=== PATIENT | male | born 1935 | race Caucasian/White ===

== ENCOUNTER 2018-02-03 19:51 | Inpatient (IN) | payer OTHER ==
[2018-02-03 21:17] LABS: Absolute Lymphocytes (CBC) 0.3 K/uL (0.7-4.9); Absolute Monocytes 0.7 K/uL (0.1-1.3); Absolute Neutrophil 10.4 K/uL (1.8-8.0); Basophils % 0.4 % (0-1.3); Eosinophils % 0.1 % (0-4.4); Hematocrit 25.7 % (39.6-49.0); Lymphocytes % 2.4 % (15.3-44.8); MCH 34.1 pg (27.0-35.0); MCV 102.9 fL (80-100); MPV 8.1 fL (7.6-11.3); Monocytes % 6.2 % (3.3-12.3); RBC Red Blood Cell Count 2.49 M/uL (4.33-5.43)
[2018-02-03 21:21] LABS: Protime INR 1.31
[2018-02-03] MEDS ORDERED: NA CHLORIDE 0.9% 250 ML ONE (21:28)
[2018-02-03] MEDS ORDERED: IBUPROFEN 400 MG TAB ONE (21:28)
[2018-02-03 21:31] LABS: ALT/SGPT 17 U/L (12-78); AST/SGOT 20 U/L (15-37); Albumin 2.9 g/dL (3.4-5.0); Alkaline Phosphatase 75 U/L (45-117); BUN Blood Urea Nitrogen 21 mg/dL (7-18); Bicarbonate 26 mmol/L (21-32); Bilirubin Direct 0.3 mg/dL (0-0.2); Bilirubin Total 0.6 mg/dL (0.2-1.0); Creatine Phosphokinase 42 U/L (39-308); Glucose Level 147 mg/dL (74-106); Lipase 121 U/L (73-393); Potassium 3.8 mmol/L (3.5-5.1); Protein, Total 6.7 g/dL (6.4-8.2); Sodium Level 143 mmol/L (136-145); Troponin (Emerg Dept Use Only) < 0.02 ng/mL (0.0-0.045)
[2018-02-03 22:06] LABS: Blood Morphology Comment NOT SEEN (NOT SEEN); Platelet Estimate ADEQ
--- NOTE | 2018-02-03 22:18 | RAD REPORT ---
EXAM DESCRIPTION: RAD - Chest Single View - 02/03/2018 9:17 pm CLINICAL HISTORY: Fever, urinary retention COMPARISON: None. TECHNIQUE: AP portable chest image was obtained 2102 hours . FINDINGS: No consolidation or mass. Heart size and vasculature within normal limits. Interstitial ma rkings are prominent, more so in the lower right lung field. As a baseline study, an acute interstiti al edema or infiltrate cannot be excluded. Pacemaker is in place. No measurable pleural effusion and no pneumothorax. No gross bony abnormality seen. No acute aortic findings suspected. IMPRESSION: Baseline study showing prominent interstitial markings in the lower right lung field and a mild diffuse prominence elsewhere. Early interstitial edema or infiltrate is not excluded.
[2018-02-03] MEDS ORDERED: NA CHLORIDE 0.9% 1,000 ML ONE (22:41)
[2018-02-03] MEDS ORDERED: CEFEPIME 1 GM/100 ML BAG IV ONE (23:16)
--- NOTE | 2018-02-03 23:17 | ER ---
Nurse's Notes [facility] Name: Ruy Mora Age: 82 yrs Sex: Male : 1935 Arrival Date: 02/03/2018 Time: 19:53 Bed 4 Private MD: Diagnosis: Urinary tract infection, site not specified Presentation: 02/03 20:02 Presenting complaint: Patient states: Fever and urinary retention that started today. aj Discharged from [facility] yesterday. Transition of care: patient was not received from another setting of care. Onset of symptoms was February 03, 2018. Risk Assessment: Do you want to hurt yourself or someone else? Patient reports no desire to harm self or others. Initial Sepsis Screen: Does the patient meet any 2 criteria? No. Patient's initial sepsis screen is negative. Does the patient have a suspected source of infection? No. Patient's initial sepsis screen is negative. Care prior to arrival: None. 20:02 Method Of Arrival: Ambulatory 20:02 Acuity: LUTHER 3 aj Triage Assessment: 20:04 General: Appears in no apparent distress. comfortable, Behavior is calm, cooperative, aj appropriate for age. Pain: Denies pain. Neuro: Level of Consciousness is awake, alert, obeys commands, Oriented to person, place, time, situation, Appropriate for age. Respiratory: Airway is patent Respiratory effort is even, unlabored, Respiratory pattern is regular, symmetrical. : Reports inability to void. Derm: Skin is intact, is healthy with good turgor, Skin is pink, warm \T\ dry. normal. Historical: - Allergies: 20:04 Plavix; aj - Home Meds: 20:36 amiodarone 200 mg Oral tab 1 tab once daily [Active]; Anoro Ellipta 62.5-25 fc mcg/actuation inhalation dsdv 1 puff once daily [Active]; aspirin 81 mg Oral chew 1 tab once daily [Active]; ferrous sulfate 325 mg (65 mg iron) Oral tab twice a day [Active]; furosemide 40 mg Oral tab 1 tab once daily [Active]; gabapentin 300 mg oral cap 2 caps twice a day [Active]; Imdur 30 mg Oral Tb24 1 tab twice a day [Active]; metoprolol tartrate 25 mg Oral tab 1 tab 2 times per day [Active]; pravastatin 80 mg oral tab 1 tab once daily [Active]; Senna with Docusate Sodium 8.6-50 mg oral tab 1 tabs nightly [Active]; tamsulosin 0.4 mg oral cp24 1 cap once daily [Active]; warfarin 5 mg Oral tab 1 tab once daily [Active]; - PMHx: 20:36 Atrial Fib; COPD; GI Bleed; Hypertension; CHF; CAD; High Cholesterol; fc - Immunization history:: Adult Immunizations up to date. - Social history:: Smoking status: Patient/guardian denies using tobacco. - Ebola Screening: : Patient negative for fever greater than or equal to 101.5 degrees Fahrenheit, and additional compatible Ebola Virus Disease symptoms Patient denies exposure to infectious person Patient denies travel to an Ebola-affected area in the 21 days before illness onset No symptoms or risks identified at this time. Screenin:30 Abuse screen: Denies threats or abuse. Nutritional screening: No deficits noted. fc Tuberculosis screening: Fall Risk No fall in past 12 months (0 pts). No secondary diagnosis (0 pts). IV access (20 points). Ambulatory Aid- Crutches/Cane/Walker (15 pts). Gait- Weak (10 pts.). Mental Status- Overestimates/Forgets Limitations (15 pts.). Total Norris Fall Scale indicates Low Risk Score (25-44 pts). Fall prevention measures have been instituted. Side Rails Up X 2 Placed close to Nursing Station Frequent Obs/Assesments occuring Family Present and informed to notify staff if they need to leave bedside As available Patient and Family Educated on Fall Prevention Program and strategies. Assessment: 20:29 General: Appears uncomfortable, well groomed, Behavior is calm, cooperative, fc appropriate for age. Pain: Complains of pain in pelvis Quality of pain is described as burning, Pain began 1 day ago. Is episodic, Aggravated by urinating. Neuro: Level of Consciousness is awake, alert, obeys commands, Oriented to person, place, time, situation. Cardiovascular: No deficits noted. Respiratory: No deficits noted. GI: No deficits noted. : Reports burning with urination, pain with urination, urgency, urinary frequency. EENT: No signs and/or symptoms were reported regarding the EENT system. Derm: Skin is intact, Skin is dry, Skin is flushed, Skin temperature is hot. Musculoskeletal: Circulation, motion, and sensation intact. Capillary refill < 3 seconds, Range of motion: intact in all extremities. 21:25 Reassessment: No changes from previously documented assessment. Patient and/or family fc updated on plan of care and expected duration. Pain level reassessed. Patient is alert, oriented x 3, equal unlabored respirations, skin warm/dry/pink. Pt and made comfortable. 21:53 Reassessment: Pts sats dropped to 80%.so he was placed on O2 at 2 liters per nasal fc cannula. 22:30 Reassessment: No changes from previously documented assessment. Patient and/or family fc updated on plan of care and expected duration. Pain level reassessed. Patient is alert, oriented x 3, equal unlabored respirations, skin warm/dry/pink. 23:14 Reassessment: No changes from previously documented assessment. Patient and/or family fc updated on plan of care and expected duration. Pain level reassessed. Patient is alert, oriented x 3, equal unlabored respirations, skin warm/dry/pink. Tootie FARIA has spoken with pt and his about admission. 23:41 Reassessment: No changes from previously documented assessment. Patient and/or family fc updated on plan of care and expected duration. Pain level reassessed. Patient is alert, oriented x 3, equal unlabored respirations, skin warm/dry/pink. Pt is pending admission. 02/04 00:10 Reassessment: No changes from previously documented assessment. Patient and/or family fc updated on plan of care and expected duration. Pain level reassessed. Patient is alert, oriented x 3, equal unlabored respirations, skin warm/dry/pink. Pt is awaiting Ct Scan that was ordered to be done prior to admission. 00:55 Reassessment: No changes from previously documented assessment. Patient and/or family fc updated on plan of care and expected duration. Pain level reassessed. Patient is alert, oriented x 3, equal unlabored respirations, skin warm/dry/pink. Pt in Ct Scan. 01:55 Reassessment: No changes from previously documented assessment. Patient and/or family fc updated on plan of care and expected duration. Pain level reassessed. Patient is alert, oriented x 3, equal unlabored respirations, skin warm/dry/pink. Pt is pending CT Scan results prior to admission. 02:21 Reassessment: Pt sleeping soundly at this time. Vital Signs: 02/03 20:04 BP 112 / 58; Pulse 82; Resp 17; Temp 98.5; Pulse Ox 91% on R/A; Weight 89.81 kg; Height aj 5 ft. 11 in. (180.34 cm); 20:31 BP 130 / 48; Pulse 86; Resp 20; Temp 100.8(O); Pulse Ox 94% on R/A; Pain 4/10; fc 21:39 BP 106 / 50; Pulse 84; Resp 20; Pulse Ox 91% on R/A; Pain 0/10; fc 21:55 Temp 99.4(O); 22:30 BP 111 / 49; Pulse 72; Resp 22; Temp 99.5; Pulse Ox 94% on 2 lpm NC; Pain 0/10; 23:13 BP 106 / 53; Pulse 67; Resp 20; Temp 99.4; Pulse Ox 94% on 2 lpm NC; Pain 0/10; 02/04 00:11 BP 92 / 50; Pulse 69; Resp 24; Temp 98.7(O); Pulse Ox 96% on R/A; Pain 0/10; 01:00 BP 94 / 43; Pulse 68; Resp 20; Pulse Ox 96% on 2 lpm NC; Pain 0/10; fc 02:00 BP 93 / 53; Pulse 63; Resp 20; Pulse Ox 99% on 2 lpm NC; Pain 0/10; fc 02:44 BP 98 / 49; Pulse 62; Resp 16; Temp 97.8(O); Pulse Ox 100% on 2 lpm NC; Pain 0/10; fc 02/03 20:04 Body Mass Index 27.62 (89.81 kg, 180.34 cm) ED Course: 02/03 19:53 Patient arrived in ED. am2 20:03 Triage completed. aj 20:04 Arm band placed on left wrist. Patient placed in an exam room. aj 20:31 Amos Sommers PA is PHCP. cp 20:31 Amos Marvin MD is Attending Physician. cp 20:31 Patient has correct armband on for positive identification. Bed in low position. Call fc light in reach. Side rails up X2. Pulse ox on. NIBP on. 20:45 Initial lab(s) drawn, by ED staff, sent to lab. First set of blood cultures drawn by ED fc staff. Inserted saline lock: 20 gauge in right antecubital area, using aseptic technique. ,using aseptic technique. per Tereza Tech Blood collected. 21:00 Flu and/or RSV swab sent to lab. fc 21:05 Bladder scan completed. 93 ml. fc 21:08 X-ray(s) taken. fc 21:12 X-ray completed. Portable x-ray completed in exam room. Patient tolerated procedure kw well. 21:13 Chest Single View XRAY In Process Unspecified. EDMS 21:25 Second set of blood cultures drawn by me. fc 21:55 Oxygen administration via nasal cannula \T\ 2L/min. fc 22:58 Urine Culture Sent. 23:15 Colleen Cohn MD is Hospitalizing Provider. 02/04 00:10 No provider procedures requiring assistance completed. fc 01:48 Inserted saline lock: 20 gauge in left antecubital area, using aseptic technique. cc 01:51 IV discontinued, intact, bleeding controlled, No redness/swelling at site. Pressure cc dressing applied, IV RT AC. 02:46 Patient admitted, IV remains in place. Administered Medications: 02/03 21:20 Drug: Motrin 800 mg Route: PO; 21:56 Follow up: Response: No adverse reaction; Temperature is decreased 21:20 Drug: NS 0.9% 250 ml Route: IV; Rate: bolus; Site: right antecubital; 21:51 Follow up: Response: No adverse reaction; No change in condition; IV Status: Completed infusion; IV Intake: 250ml 22:40 Drug: NS 0.9% 1000 ml Route: IV; Rate: 75 ml/hr; Site: right antecubital; 02/04 02:47 Follow up: Response: No adverse reaction; No change in condition; IV Status: Infusion continued upon admission; IV Intake: 300ml 02/03 23:01 CANCELLED (Physician Discretion): Zosyn 3.375 grams IVPB once over 60 mins; (mix in NS cp 100 mL) 23:02 CANCELLED (Physician Discretion): vancoMYCIN 1 grams IVPB once over 2 hrs cp 23:15 Drug: Cefepime 1 grams Route: IVPB; Rate: 200 ml/hr; Infused Over: 30 mins; Site: right fc antecubital; 02/04 00:10 Follow up: Response: No adverse reaction; No change in condition; IV Status: Completed fc infusion; IV Intake: 50ml 02/03 23:16 Drug: Albuterol 2.5 mg Route: Inhalation; fc 23:40 Follow up: Response: No adverse reaction; No change in condition fc 23:16 Drug: AtroVENT Aerosol 0.5 mg Route: Inhalation; fc 23:40 Follow up: Response: No adverse reaction; No change in condition fc Intake: 21:51 IV: 250ml; Total: 250ml. fc 02/04 00:10 IV: 50ml; Total: 300ml. fc 02:47 IV: 300ml; Total: 600ml. fc 02:48 PO: 100ml; Total: 700ml. fc Output: 02:48 Urine: 175ml (Voided); Total: 175ml. fc Outcome: 02/03 23:16 Decision to Hospitalize by Provider. 02/04 02:45 Admitted to Tele accompanied by tech, via wheelchair, room 407, with chart, Report fc called to Melanie FORBES Condition: good Discharge instructions given to patient, family, Instructed on the need for admit, Demonstrated understanding of instructions. 03:12 Patient left the ED. Signatures: Dispatcher [employer] Brie Chacon RN RN aj Chretien, Felicia, RN RN fc Whitley, Kimberlee kw Christian, Chelsea cc Page, Corey, PA PA cp Moreno, Amanda am2
--- NOTE | 2018-02-03 23:17 | EDPHYS ---
Physician Documentation [facility] Name: Ruy Mora Age: 82 yrs Sex: Male : 1935 Arrival Date: 02/03/2018 Time: 19:53 Bed 4 Private MD: ED Physician Amos Marvin HPI: 02/03 20:45 This 82 yrs old Male presents to ER via Ambulatory with complaints of Urinary cp Retention. 20:45 The patient presents with urinary symptoms, dribbling of urine, retention. cp 20:45 Onset: The symptoms/episode began/occurred this morning. Associated signs and symptoms: cp Pertinent positives: cough, Pertinent negatives: constipation, diarrhea, vomiting. The patient reports fever, not measured (subjective). [facility] being hospitalized for GI bleed. Patient reports having endoscopy and blood transfusions while in hospital. Patient reports fever and difficulty urinating today. Historical: - Allergies: 20:04 Plavix; aj - Home Meds: 20:36 amiodarone 200 mg Oral tab 1 tab once daily [Active]; Anoro Ellipta 62.5-25 fc mcg/actuation inhalation dsdv 1 puff once daily [Active]; aspirin 81 mg Oral chew 1 tab once daily [Active]; ferrous sulfate 325 mg (65 mg iron) Oral tab twice a day [Active]; furosemide 40 mg Oral tab 1 tab once daily [Active]; gabapentin 300 mg oral cap 2 caps twice a day [Active]; Imdur 30 mg Oral Tb24 1 tab twice a day [Active]; metoprolol tartrate 25 mg Oral tab 1 tab 2 times per day [Active]; pravastatin 80 mg oral tab 1 tab once daily [Active]; Senna with Docusate Sodium 8.6-50 mg oral tab 1 tabs nightly [Active]; tamsulosin 0.4 mg oral cp24 1 cap once daily [Active]; warfarin 5 mg Oral tab 1 tab once daily [Active]; - PMHx: 20:36 Atrial Fib; COPD; GI Bleed; Hypertension; CHF; CAD; High Cholesterol; fc - Immunization history:: Adult Immunizations up to date. - Social history:: Smoking status: Patient/guardian denies using tobacco. - Ebola Screening: : Patient negative for fever greater than or equal to 101.5 degrees Fahrenheit, and additional compatible Ebola Virus Disease symptoms Patient denies exposure to infectious person Patient denies travel to an Ebola-affected area in the 21 days before illness onset No symptoms or risks identified at this time. ROS: 20:52 Constitutional: Positive for fever, Negative for body aches, poor PO intake. cp 20:52 Eyes: Negative for injury, pain, redness, and discharge. cp 20:52 ENT: Negative for drainage from ear(s), ear pain, sore throat, difficulty swallowing, difficulty handling secretions. 20:52 Cardiovascular: Negative for chest pain, edema, palpitations. 20:52 Respiratory: Positive for cough, Negative for wheezing. 20:52 Abdomen/GI: Negative for vomiting, diarrhea, constipation, anorexia, black/tarry stool, rectal bleeding. 20:52 Back: Negative for pain at rest, pain with movement, radiated pain. 20:52 : Positive for difficulty urinating. 20:52 Skin: Negative for cellulitis, rash. 20:52 Neuro: Negative for altered mental status, headache, weakness. 20:52 All other systems are negative. Exam: 20:58 Constitutional: The patient appears in no acute distress, alert, awake, cp non-diaphoretic, non-toxic, well developed, well nourished, febrile. 20:58 Head/Face: Normocephalic, atraumatic. cp 20:58 Eyes: Periorbital structures: appear normal, Pupils: equal, round, and reactive to light and accomodation, Extraocular movements: intact throughout, Conjunctiva: normal, no exudate, no injection, Sclera: no appreciated abnormality, Lids and lashes: appear normal, bilaterally. 20:58 ENT: External ear(s): are unremarkable, Ear canal(s): are normal, clear, TM's: bulging, is not appreciated, bilaterally, dullness, bilaterally, erythema, is not appreciated, bilaterally, Nose: is normal, Mouth: Lips: moist, Oral mucosa: pink and intact, moist, Posterior pharynx: is normal, airway is patent, no erythema, no exudate. 20:58 Neck: ROM/movement: is normal, is supple, without pain, no range of motions limitations, no meningismus, no nuchal rigidity. 20:58 Chest/axilla: Inspection: normal, Palpation: is normal, no crepitus, no tenderness. 20:58 Cardiovascular: Rate: normal, Rhythm: regular, Pulses: Pulses are 2+ in right radial artery and left radial artery. Edema: is not appreciated, JVD: is not appreciated. 20:58 Respiratory: the patient does not display signs of respiratory distress, Respirations: normal, no use of accessory muscles, no retractions, no splinting, no tachypnea, labored breathing, is not present, Breath sounds: decreased breath sounds, that are mild, throughout, rhonchi, that are mild, are located in both bases, wheezing: is not appreciated. 20:58 Abdomen/GI: Inspection: abdomen appears normal, Bowel sounds: active, all quadrants, Palpation: abdomen is soft and non-tender, in all quadrants, rebound tenderness, is not appreciated, voluntary guarding, is not appreciated, involuntary guarding, is not appreciated. 20:58 Back: pain, is absent, ROM is normal. 20:58 Skin: cellulitis, is not appreciated, no rash present. 20:58 Neuro: Orientation: to person, place \T\ time. Mentation: lucid, able to follow commands, Cerebellar function: is grossly normal, Motor: moves all fours, strength is normal, Sensation: no obvious gross deficits. 21:25 ECG was reviewed by the Attending Physician. cp Vital Signs: 20:04 BP 112 / 58; Pulse 82; Resp 17; Temp 98.5; Pulse Ox 91% on R/A; Weight 89.81 kg; Height aj 5 ft. 11 in. (180.34 cm); 20:31 BP 130 / 48; Pulse 86; Resp 20; Temp 100.8(O); Pulse Ox 94% on R/A; Pain 4/10; fc 21:39 BP 106 / 50; Pulse 84; Resp 20; Pulse Ox 91% on R/A; Pain 0/10; fc 21:55 Temp 99.4(O); fc 22:30 BP 111 / 49; Pulse 72; Resp 22; Temp 99.5; Pulse Ox 94% on 2 lpm NC; Pain 0/10; fc 23:13 BP 106 / 53; Pulse 67; Resp 20; Temp 99.4; Pulse Ox 94% on 2 lpm NC; Pain 0/10; fc 02/04 00:11 BP 92 / 50; Pulse 69; Resp 24; Temp 98.7(O); Pulse Ox 96% on R/A; Pain 0/10; fc 01:00 BP 94 / 43; Pulse 68; Resp 20; Pulse Ox 96% on 2 lpm NC; Pain 0/10; fc 02:00 BP 93 / 53; Pulse 63; Resp 20; Pulse Ox 99% on 2 lpm NC; Pain 0/10; fc 02:44 BP 98 / 49; Pulse 62; Resp 16; Temp 97.8(O); Pulse Ox 100% on 2 lpm NC; Pain 0/10; fc 02/03 20:04 Body Mass Index 27.62 (89.81 kg, 180.34 cm) aj MDM: 02/03 20:31 Patient medically screened. cp 21:00 Differential diagnosis: prostatitis, sepsis, pneumonia bronchitis, pneumonia UTI. cp 22:30 Data reviewed: vital signs, nurses notes, lab test result(s), EKG, radiologic studies, cp plain films. 22:30 Test interpretation: by ED physician or midlevel provider: ECG, plain radiologic cp studies. Counseling: I had a detailed discussion with the patient and/or guardian regarding: the historical points, exam findings, and any diagnostic results supporting the discharge/admit diagnosis, lab results, radiology results, the need for further work-up and treatment in the hospital. 22:36 Physician consultation: Colleen Cohn MD was called at 22:37, left message on voicemail. 02/03 20:41 Order name: Urine Culture 02/03 20:41 Order name: Basic Metabolic Panel; Complete Time: 21:34 02/03 22:28 Interpretation: Normal except: CL 109; GLUC 147; BUN 21; CRE 1.60; GFR 41; CA 7.2. 02/03 20:41 Order name: Blood Culture Adult (2) 02/03 20:41 Order name: CBC with Diff; Complete Time: 22:27 02/03 21:35 Interpretation: Normal except: WBC 11.5; RBC 2.49; HGB 8.5; HCT 25.7; MCV 102.9; PLT cp 148; RDW 19.8; SUNDAY% 90.9; LYM% 2.4; NEUT A 10.4; LYMA 0.3. 02/03 20:41 Order name: CPK; Complete Time: 21:34 02/03 20:41 Order name: Lactate; Complete Time: 22: 02/03 20:41 Order name: LFT's; Complete Time: : 02/03 22:28 Interpretation: Normal except: BILID 0.3; ALB 2.9; GLOB 3.8; A/G 0.8. 02/03 20:41 Order name: Lipase; Complete Time: 21: 02/03 20:41 Order name: Procalcitonin; Complete Time: 22: 02/03 20:41 Order name: Protime (+inr); Complete Time: : 02/03 20:41 Order name: Ptt, Activated; Complete Time: : 02/03 20:41 Order name: Troponin (emerg Dept Use Only); Complete Time: : 02/03 20:41 Order name: Urine Microscopic Only 02/03 20:41 Order name: Influenza Screen (a \T\ B); Complete Time: : 02/03 20:41 Order name: Chest Single View XRAY; Complete Time: 22: 02/03 20:41 Order name: Accucheck; Complete Time: 21: 02/03 20:41 Order name: Cardiac monitoring; Complete Time: : 02/03 20:41 Order name: EKG - Nurse/Tech; Complete Time: : 02/03 20:41 Order name: Urine Culture [facility] 02/03 21:22 Order name: Manual Differential; Complete Time: 22: [facility] 02/03 22:27 Interpretation: Normal except: SEGS 89; BANDS [F] 6; LYM 4. 02/03 22:54 Order name: Urine Dipstick--Ancillary (enter results) ms 02/03 23:01 Order name: CT Chest Wo Con 02/03 20:41 Order name: IV Saline Lock - Large Bore; Complete Time: : 02/03 20:41 Order name: Labs collected and sent; Complete Time: : 02/03 20:41 Order name: O2 Per Protocol; Complete Time: 21: 02/03 20:41 Order name: O2 Sat Monitoring; Complete Time: 21: 02/03 20:41 Order name: Urine Dipstick-Ancillary (obtain specimen); Complete Time: 22:58 cp EC:25 Rate is 75 beats/min. Rhythm is regular. NC interval is normal. QRS interval is cp prolonged at 106 msec. QT interval is prolonged at 412 msec. Interpreted by me. Reviewed by me. Administered Medications: 21:20 Drug: Motrin 800 mg Route: PO; 21:56 Follow up: Response: No adverse reaction; Temperature is decreased 21:20 Drug: NS 0.9% 250 ml Route: IV; Rate: bolus; Site: right antecubital; 21:51 Follow up: Response: No adverse reaction; No change in condition; IV Status: Completed fc infusion; IV Intake: 250ml 22:40 Drug: NS 0.9% 1000 ml Route: IV; Rate: 75 ml/hr; Site: right antecubital; 02/04 02:47 Follow up: Response: No adverse reaction; No change in condition; IV Status: Infusion fc continued upon admission; IV Intake: 300ml 02/03 23:01 CANCELLED (Physician Discretion): Zosyn 3.375 grams IVPB once over 60 mins; (mix in NS cp 100 mL) 23:02 CANCELLED (Physician Discretion): vancoMYCIN 1 grams IVPB once over 2 hrs cp 23:15 Drug: Cefepime 1 grams Route: IVPB; Rate: 200 ml/hr; Infused Over: 30 mins; Site: right fc antecubital; 02/04 00:10 Follow up: Response: No adverse reaction; No change in condition; IV Status: Completed fc infusion; IV Intake: 50ml 02/03 23:16 Drug: Albuterol 2.5 mg Route: Inhalation; 23:40 Follow up: Response: No adverse reaction; No change in condition 23:16 Drug: AtroVENT Aerosol 0.5 mg Route: Inhalation; 23:40 Follow up: Response: No adverse reaction; No change in condition Disposition: 02/04 07:20 Co-signature as Attending Physician, Amos Marvin MD I agree with the assessment and shannan plan of care. Disposition: 02/03/18 23:16 Hospitalization ordered by Colleen Cohn for Observation. Preliminary diagnosis is Urinary tract infection, site not specified. - Bed requested for Telemetry/MedSurg (observation). - Status is Observation. fc - Condition is Stable. - Problem is new. - Symptoms have improved. UTI on Admission? Yes Signatures: Dispatcher [employer] EDMS Dasha Elizabeth RN RN Brie Biswas RN Amos Jay MD MD cha Chretien, Felicia, RN RN Amos Sommers, BIENVENIDO FARIA cp Corrections: (The following items were deleted from the chart) 02/03 22:28 21:34 Normal except: CL 109; GLUC 147; BUN 21; CRE 1.60; GFR 41. cp cp 22:50 22:31 Jeffries ordered. cp fc 23:01 22:45 Zosyn 3.375 grams IVPB once over 60 mins; (mix in NS 100 mL) ordered. cp cp 23:02 22:45 vancoMYCIN 1 grams IVPB once over 2 hrs ordered. cp cp 23:45 23:16 Hospitalization Ordered by Colleen Cohn MD for Observation. Preliminary diagnosis is Urinary tract infection, site not specified. Bed requested for Telemetry/MedSurg (observation). Status is Observation. Condition is Stable. Problem is new. Symptoms have improved. UTI on Admission? Yes. cp 02/04 03:12 02/03 23:45 02/03/2018 23:16 Hospitalization Ordered by Colleen Cohn MD for Observation. Preliminary diagnosis is Urinary tract infection, site not specified. Bed requested for Telemetry/MedSurg (observation). Status is Observation. Condition is Stable. Problem is new. Symptoms have improved. UTI on Admission? Yes. mw
[2018-02-03] MEDS ORDERED: IPRATROPIUM BROM 0.5MG/2.5ML ONE (23:19)
[2018-02-03] MEDS ORDERED: ALBUTEROL 2.5 MG/3 ML NEB SOL ONE (23:19)
[2018-02-03 23:40] LABS: Urine Bacteria LOADED /HPF (NONE SEEN); Urine Culture Reflex Order NOT NEEDED; Urine RBC <5 /HPF (NONE SEEN)
[2018-02-04] MEDS ORDERED: ONDANSETRON 4 MG/2 ML VIAL IV PRN (00:51)
[2018-02-04] MEDS ORDERED: MORPHINE 2 MG/ML SYR IV PRN (00:51)
[2018-02-04] MEDS ORDERED: PANTOPRAZOLE 40 MG INJ IVP ONE (00:54)
[2018-02-04] MEDS ORDERED: SODIUM CHLORIDE 0.9% 10ML INJ IV PRN (00:54)
[2018-02-04] MEDS: NA CHLORIDE 0.9% 1,000 ML IV SCH ×3 (01:00→20:48)
[2018-02-04 01:10] LABS: Urine Blood 1+ (NEG); Urine Glucose NEGATIVE (NEG); Urine Protein 2+ (NEG)
[2018-02-04 04:31] VITALS: BMI 28.9
[2018-02-04] MEDS ORDERED: MORPHINE 4 MG/ML SYR IV PRN (07:25)
[2018-02-04] MEDS ORDERED: INFLUENZA VACCINE (for 3y+) 0.5 ML DOSE IMVAC ONE (08:00)
[2018-02-04] MEDS: PANTOPRAZOLE 40 MG INJ IVP SCH ×2 (08:43→20:49)
[2018-02-04] MEDS: ASPIRIN EC 81 MG TAB PO SCH (08:44)
[2018-02-04] MEDS: ISOSORBIDE MONO SR 30 MG TAB PO SCH ×3 (08:44→17:46)
[2018-02-04] MEDS: TAMSULOSIN 0.4 MG SR CAP PO SCH (08:44)
[2018-02-04] MEDS: GABAPENTIN 300 MG CAP PO SCH ×2 (08:44→20:48)
[2018-02-04] MEDS: FERROUS SULFATE 325 MG TAB PO SCH ×2 (08:44→17:46)
[2018-02-04] MEDS: AMIODARONE HCL 200 MG TAB PO SCH (08:44)
[2018-02-04] MEDS: FUROSEMIDE 40 MG TABLET PO SCH (08:44)
[2018-02-04] MEDS: HOME MED 1 EA UNK (Umeclidinium Brm/Vilanterol Tr [Anoro Ellipta 62.5-25 Mcg Inh] 1 PUFF) IN SCH (08:45)
[2018-02-04] MEDS: METOPROLOL TAR 25 MG TAB PO SCH ×2 (08:45→21:00)
[2018-02-04 09:00] LABS: Protime INR 1.23
[2018-02-04] MEDS ORDERED: HOME MED 1 EA UNK (Pravastatin Sodium [Pravachol] 80 MG) PO SCH (09:00)
[2018-02-04 09:09] LABS: Absolute Lymphocytes (CBC) 0.2 K/uL (0.7-4.9); Absolute Monocytes 0.7 K/uL (0.1-1.3); Absolute Neutrophil 13.3 K/uL (1.8-8.0); Basophils % 0.2 % (0-1.3); Eosinophils % 0.1 % (0-4.4); Hematocrit 28.8 % (39.6-49.0); Lymphocytes % 1.7 % (15.3-44.8); MCH 33.9 pg (27.0-35.0); MCV 102.6 fL (80-100); MPV 7.9 fL (7.6-11.3); Monocytes % 4.9 % (3.3-12.3); RBC Red Blood Cell Count 2.81 M/uL (4.33-5.43)
[2018-02-04 09:14] LABS: Ferritin 480.7 ng/mL (26-388)
[2018-02-04 09:29] LABS: Anisocytosis 1+; Blood Morphology Comment NOTED (NOT SEEN); Macrocytosis 1+; Platelet Estimate ADEQ; Polychromasia SLIGHT; Urine White Blood Cell Casts OK
[2018-02-04 09:36] LABS: Bilirubin Total 1.1 mg/dL (0.2-1.0); Folic Acid, (Folate) 18.3 ng/mL (3.1-17.5); Magnesium 2.1 mg/dL (1.8-2.4); Phosphorus 1.5 mg/dL (2.5-4.9); Potassium 3.8 mmol/L (3.5-5.1); Protein, Total 7.2 g/dL (6.4-8.2)
--- NOTE | 2018-02-04 11:17 | P.HP ---
Certification for Inpatient Patient admitted to: Observation With expected LOS: <2 Midnights Patient will require the following post-hospital care: None Practitioner: I am a practitioner with admitting privileges, knowledge of patient current condition, hospital course, and medical plan of care. Services: Services provided to patient in accordance with Admission requirements found in Title 42 Section 412.3 of the Code of Federal Regulations Patient History Date of Service: 02/04/18 Reason for admission: Fever; urinary retention; UTI; pneumonia History of Present Illness: Patient is an 82-year-old gentleman who came into the hospital with fever, shakes, and chills. Patient was recently discharged from [facility]. At that time he was admitted for upper GI bleeding. They did an endoscopy which risk acquired a special endoscopy to reach further into the small intestine then the duodenum. Patient had been area bleeding that was clipped. Afterwards patient did well except that patient has some urinary retention which was straight cathed and after urinating 600 cc she was sent home. She was advised to go back to the emergency room if she had fevers which she developed on Monday. Patient history of atrial fibrillation. Patient was on anti coagulation which cause of bleeding. Patient had a Watchman procedure which was done in March. Patient will be admitted to the hospital for further treatment. Allergies clopidogrel bisulfate [From Plavix] Allergy (Verified 02/04/18 00:12) Hives Home Medications: Aspirin [Aspirin EC] 81 mg PO DAILY 02/13/15 Ferrous Sulfate [Iron] 325 mg PO BID 02/13/15 Pravastatin Sodium [Pravachol] 80 mg PO DAILY 02/13/15 Amiodarone HCl [Pacerone] 200 mg PO DAILY 02/04/18 Furosemide 40 mg PO DAILY 02/04/18 Gabapentin 600 mg PO BID 02/04/18 Isosorbide Mononitrate [Isosorbide Mononitrate ER] 30 mg PO BID 02/04/18 Metoprolol Tartrate 25 mg PO BID 02/04/18 Sennosides/Docusate Sodium [Senna-Docusate Sodium Tablet] 1 tab PO BEDTIME 02/04 Tamsulosin HCl 0.4 mg PO DAILY 02/04/18 Umeclidinium Brm/Vilanterol Tr [Anoro Ellipta 62.5-25 Mcg INH] 1 puff IN DAILY 02/04/18 Warfarin Sodium 5 mg PO DAILY 02/04/18 - Past Medical/Surgical History Has patient received pneumonia vaccine in the past: Yes Diabetic: No -: DVT -: Atrial fib -: COPD -: GI Bleed -: Hypertension -: CHF -: CAD -: High Cholestol -: 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 -: [place] filter - Family History Father Family History: Reviewed- Non-Contributory - Social History Smoking Status: Former smoker Alcohol use: Yes CD- Drugs: No Caffeine use: Yes Place of Residence: Home Review of Systems 10-point ROS is otherwise unremarkable Physical Examination - Vital Signs Temperature: 97.2 F Blood Pressure: 123/54 Pulse: 72 Respirations: 24 Pulse Ox (%): 97 - Physical Exam General: Alert, In no apparent distress, Oriented x3 HEENT: Atraumatic, PERRLA, Mucous membr. moist/pink, EOMI, Sclerae nonicteric Neck: Supple, 2+ carotid pulse no bruit, No LAD, Without JVD or thyroid abnormality Respiratory: Diminished, Rhonchi/gurgles Cardiovascular: Regular rate/rhythm, Normal S1 S2, Systolic murmur Gastrointestinal: Normal bowel sounds, Soft and benign, Non-distended, Tenderness (In suprapubic area) Musculoskeletal: No clubbing, No swelling, No tenderness Integumentary: No rashes Neurological: Normal gait, Normal speech, Normal strength at 5/5 x4 extr, Normal tone, Normal affect Lymphatics: No axilla or inguinal lymphadenopathy - Studies Laboratory Data (last 24 hrs) 02/03/18 20:45: PT 15.5 H, INR 1.31, APTT 34.9 02/03/18 20:45: WBC 11.5 H, Hgb 8.5 L, Hct 25.7 L, Plt Count 148 L 02/03/18 20:45: Sodium 143, Potassium 3.8, BUN 21 H, Creatinine 1.60 H, Glucose 147 H, Total Bilirubin 0.6, AST 20, ALT 17, Alkaline Phosphatase 75, Lipase 121 Microbiology Data (last 24 hrs): 02/03/18 21:00 Nasopharnyx Influenza Type A Antigen Screen - Final 02/03/18 21:00 Nasopharnyx Influenza Type B Antigen Screen - Final Assessment & Plan - Problems (Diagnosis) (1) UTI (urinary tract infection) Current Visit: Yes Status: Acute (2) Pneumonia Current Visit: Yes Status: Acute (3) Anemia due to acute blood loss Current Visit: Yes Status: Acute (4) DVT (deep venous thrombosis) Current Visit: Yes Status: Acute (5) Atrial fibrillation with rapid ventricular response Current Visit: Yes Status: Acute (6) COPD (chronic obstructive pulmonary disease) Current Visit: Yes Status: Acute - Plan Plan: 1. Continue with IV hydration and PPI twice daily 2. Continue with IV antibiotics for treatment of UTI and pneumonia 3. Continue with pain control 4. Clear liquid diet 5. GI consultation as needed 6. Serial H&H, and we will monitor LFTs and lipase along with electrolytes. 7. GI and DVT prophylaxis Discharge Plan: Home Plan to discharge in: 24 Hours - Advance Directives Does patient have a Living Will: No Does patient have a Durable POA for Healthcare: No - Code Status/Comfort Care Code Status Assessed: Yes Code Status: Full Code Physician Review: Patient Assessed, Agree with Above Assessment and Plan Physician Review Additional Text: 45
--- NOTE | 2018-02-04 12:11 | RAD REPORT ---
EXAM DESCRIPTION: CT - Thorax Wo Con CLINICAL HISTORY: Chest pain fever COMPARISON: Chest Single View dated 02/03/2018 FINDINGS: Prominent COPD is present. Peripherally located areas of lung consolidation along the medi al right lung base may represent atelectasis, pneumonia or aspiration. Mild linear atelectasis is als o present in medial left lung base. Mild right-sided pleural thickening. No pneumothorax. No axillary, mediastinal or hilar adenopathy. Pacemaker is in place. 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 No gross upper abdominal finding. All CT scans are performed using dose optimization technique as appropriate and may include automated exposure control or mA/KV adjustment according to patient size. IMPRESSION: Prominent COPD is noted.Areas of airspace consolidation posteromedial right lower lobe p robably represent atelectasis or developing pneumonia.
[2018-02-04] MEDS: ACETAMINOPHEN 500 MG TAB PO PRN ×2 (12:44→18:22)
[2018-02-04] MEDS: CEFTRIAXONE/SWI 1gm 1 GM/10 ML SYR IV SCH (12:47)
[2018-02-04 13:55] LABS: RBC Red Blood Cell Count 2.46 M/uL (4.33-5.43)
[2018-02-04] MEDS: ATORVASTATIN 10 MG TAB PO SCH (20:48)
[2018-02-04] MEDS ORDERED: ALBUMIN HUMAN 25% 100 ML IV ONE ×2 (20:56→22:00)
[2018-02-05 05:44] LABS: Absolute Lymphocytes (CBC) 0.5 K/uL (0.7-4.9); Absolute Monocytes 0.6 K/uL (0.1-1.3); Absolute Neutrophil 10.1 K/uL (1.8-8.0); Basophils % 0.4 % (0-1.3); Eosinophils % 0.6 % (0-4.4); Hematocrit 23.7 % (39.6-49.0); Lymphocytes % 4.1 % (15.3-44.8); MCH 34.2 pg (27.0-35.0); MCV 101.6 fL (80-100); MPV 8.1 fL (7.6-11.3); Monocytes % 5.2 % (3.3-12.3); RBC Red Blood Cell Count 2.33 M/uL (4.33-5.43)
[2018-02-05 05:47] LABS: Protime INR 1.3
[2018-02-05 06:08] LABS: Albumin 2.7 g/dL (3.4-5.0); Bilirubin Total 0.8 mg/dL (0.2-1.0); Potassium 3.7 mmol/L (3.5-5.1); Protein, Total 6.4 g/dL (6.4-8.2); Thyroid Stimulating Hormone 1.55 uIU/mL (0.360-3.740)
--- NOTE | 2018-02-05 06:50 | EKG ---
Test Date: 2018-02-03 Test Time: 21:18:26 Transplant Coordinator: BRIAN MEASUREMENT RESULTS: Intervals: Rate: 75 [place]: 162 QRSD: 106 QT: 412 QTc: 460 [place]: P: 99 [place]: 162 QRS: 18 T: 8 INTERPRETIVE STATEMENTS: Normal sinus rhythm Incomplete right bundle branch block Prolonged QT Abnormal ECG No previous ECG available for comparison Electronically Signed On 02-05-18 06:49:59 CDT by Eric Child
[2018-02-05] MEDS ORDERED: CEFTRIAXONE/SWI 1gm 1 GM/10 ML SYR IV SCH (09:00)
[2018-02-05] MEDS: HOME MED 1 EA UNK (Umeclidinium Brm/Vilanterol Tr [Anoro Ellipta 62.5-25 Mcg Inh] 1 PUFF) IN SCH (09:00)
[2018-02-05] MEDS: FERROUS SULFATE 325 MG TAB PO SCH ×2 (09:31→16:32)
[2018-02-05] MEDS: TAMSULOSIN 0.4 MG SR CAP PO SCH (09:32)
[2018-02-05] MEDS: ASPIRIN EC 81 MG TAB PO SCH (09:32)
[2018-02-05] MEDS: ISOSORBIDE MONO SR 30 MG TAB PO SCH ×2 (09:32→16:33)
[2018-02-05] MEDS: FUROSEMIDE 40 MG TABLET PO SCH (09:32)
[2018-02-05] MEDS: AMIODARONE HCL 200 MG TAB PO SCH (09:32)
[2018-02-05] MEDS: METOPROLOL TAR 25 MG TAB PO SCH ×2 (09:33→20:33)
[2018-02-05] MEDS: GABAPENTIN 300 MG CAP PO SCH ×2 (09:33→20:27)
[2018-02-05] MEDS: PANTOPRAZOLE 40 MG INJ IVP SCH ×2 (09:34→20:27)
[2018-02-05] MEDS: CEFTRIAXONE/SWI 1gm 1 GM/10 ML SYR IV SCH (09:34)
--- NOTE | 2018-02-05 11:56 | P.PN ---
Subjective Date of Service: 02/05/18 Chief Complaint: Fever; urinary retention; UTI; pneumonia Pt seen and examined at bedside. Chart reviewed. Case DW with urology. Doing well overall. Would like to go home today however educated on Culture pending at this time. Review of Systems 10-point ROS is otherwise unremarkable Physical Examination - Vital Signs Temperature: 98.9 F Blood Pressure: 124/59 Pulse: 76 Respirations: 20 Pulse Ox (%): 96 - Physical Exam General: Alert, In no apparent distress HEENT: Atraumatic, PERRLA, EOMI Neck: Supple, JVD not distended Respiratory: Clear to auscultation bilaterally, Normal air movement Cardiovascular: Regular rate/rhythm, Normal S1 S2 Gastrointestinal: Normal bowel sounds, Soft and benign, Non-distended, No tenderness Musculoskeletal: No tenderness Integumentary: No rashes Neurological: Normal speech, Normal tone, Normal affect Lymphatics: No axilla or inguinal lymphadenopathy - Studies Medications List Reviewed: Yes Assessment And Plan - Current Problems (Diagnosis) (1) UTI (urinary tract infection) Current Visit: Yes Status: Acute Plan: UTI with Urinary Retention post procedure. -IV Rocephin for now -Urology consulted. 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 transplanted heart: [place] heart Associated angina: without angina Qualified Code(s): I25.10 - Atherosclerotic heart disease of [place] coronary artery without angina pectoris Discharge Plan: Home Plan to discharge in: 24 Hours - Code Status/Comfort Care Code Status Assessed: Yes Physician Review: Patient Assessed, Agree with Above Assessment and Plan Critical Care: No
[2018-02-05] MEDS: ACETAMINOPHEN 500 MG TAB PO PRN (16:32)
[2018-02-05] MEDS: NA CHLORIDE 0.9% 1,000 ML IV SCH ×2 (16:33→20:27)
[2018-02-05] MEDS: ATORVASTATIN 10 MG TAB PO SCH (20:27)
--- NOTE | 2018-02-06 06:19 | EKG ---
Test Date: 2018-02-05 Test Time: 23:32:52 Java Security Engineer: RT Jiménez MEASUREMENT RESULTS: Intervals: Rate: 114 [place]: QRSD: 100 QT: 374 QTc: 515 [place]: P: ND: QRS: 35 T: 14 INTERPRETIVE STATEMENTS: Atrial fibrillation with rapid ventricular response Nonspecific ST abnormality, probably digitalis effect Abnormal ECG Compared to ECG 02/03/2018 21:18:26 ST (T wave) deviation now present Sinus rhythm no longer present Incomplete right bundle-branch block no longer present Prolonged QT interval no longer present Electronically Signed On 02-06-18 06:18:57 CDT by Eric Child
--- NOTE | 2018-02-06 08:19 | CON ---
History Of Present Illness: An 82-year-old gentleman with history of BPH, on Flomax, who went to [facility] and [place]. Recently had upper GI endoscopy with clipping of bleeder, came to the hospital with fever, shakes, and chills. He presented with UTI with history of atrial fibrillation, on anticoagulation for bleeding and the Watchman procedure, placed in the past. Currently, returns for Jeffries catheter, it has been week, and then removed it prior to going home. However, the patient's urine culture is growing greater than 100, 000 colony-forming units per mL. Currently, he is voiding every 2 hours a small amount. I suspect he may still be in retention. We are going to do a bladder scan, and if it is more than 350, we will place a Jeffries catheter in his bladder. Await for the final culture to come back and treating based on the sensitivities. Continue Flomax for now. Allergies: PLAVIX. Home Medications: Aspirin, iron, Pravachol, amiodarone, Lasix, gabapentin, isosorbide mononitrate, metoprolol tartrate, senna, docusate, tamsulosin, inhalers, warfarin 5 mg a day. Past Medical History: No diabetes. History of DVT, atrial fibrillation, COPD, GI bleed, hypertension, CHF, coronary artery disease, high cholesterol, pacemaker, Watchman placement to heart, left hip replacement, [place] filter. Family History: Noncontributory. Social History: Former smoker. Some alcohol use. No drug use. Some caffeine use. Resides at home Review of Systems: A 10 point review of systems otherwise unremarkable. Physical Examination: Vital Signs: Temperature 98.9, pulse 76, respirations 20, BP 124/59, 96% saturation on 2 L nasal cannula. General: Alert, oriented, well-developed male in no acute distress. Appears his stated age. HEENT: Atraumatic, normocephalic. Neck: Supple. Respiratory: Diminished breath sounds. Cardiovascular: S1, S2. Gastrointestinal: Normal bowel sounds. Soft, nontender. Musculoskeletal: No clubbing. No swelling. Skin: No rashes. Neurologic: Normal gait. Lymphatic: No axillary lymphadenopathy. Lab Studies: Show urine as mentioned above, nitrite positive, esterase 2+, bacteria loaded, growing gram-negative rods. Chemistry showing sodium 139, potassium 3.7, chloride 109, carbon dioxide 25, BUN 17, creatinine 1.2, GFR 58, glucose 109, calcium 10.6. Coagulation: PT 15.4, INR 1.3, PTT 35.2. Hematology: WBC 11.3, hemoglobin 8.0, hematocrit 24, platelet count 141. Assessment: Gram-negative urinary tract infection, possible urinary retention. Plan: Bladder scan and Replace Jeffries catheter if PVR greater than 350 cc. The patient is currently on Rocephin. We will continue that for now until the final culture is back. LUPILLO/ZAFAR Voice ID: [id number] Report ID: [id number] HANSA
[2018-02-06] MEDS: CEFTRIAXONE/SWI 1gm 1 GM/10 ML SYR IV SCH (08:24)
[2018-02-06] MEDS: FUROSEMIDE 40 MG TABLET PO SCH (08:25)
[2018-02-06] MEDS: PANTOPRAZOLE 40 MG INJ IVP SCH (08:25)
[2018-02-06] MEDS: FERROUS SULFATE 325 MG TAB PO SCH ×2 (08:25→17:31)
[2018-02-06] MEDS: GABAPENTIN 300 MG CAP PO SCH (08:25)
[2018-02-06] MEDS: WARFARIN SODIUM 5 MG TAB PO SCH ×2 (08:26→08:32)
[2018-02-06] MEDS: METOPROLOL TAR 25 MG TAB PO SCH (08:27)
[2018-02-06] MEDS: TAMSULOSIN 0.4 MG SR CAP PO SCH (08:27)
[2018-02-06] MEDS: ASPIRIN EC 81 MG TAB PO SCH (08:27)
[2018-02-06] MEDS: ISOSORBIDE MONO SR 30 MG TAB PO SCH ×2 (08:27→17:31)
[2018-02-06] MEDS: AMIODARONE HCL 200 MG TAB PO SCH (08:28)
[2018-02-06] MEDS: HOME MED 1 EA UNK (Umeclidinium Brm/Vilanterol Tr [Anoro Ellipta 62.5-25 Mcg Inh] 1 PUFF) IN SCH (08:28)
[2018-02-06 09:16] LABS: Absolute Lymphocytes (CBC) 0.4 K/uL (0.7-4.9); Absolute Monocytes 0.5 K/uL (0.1-1.3); Absolute Neutrophil 6.8 K/uL (1.8-8.0); Basophils % 0.6 % (0-1.3); Eosinophils % 0.8 % (0-4.4); Hematocrit 24.8 % (39.6-49.0); Lymphocytes % 5.2 % (15.3-44.8); MCH 34.1 pg (27.0-35.0); MCV 100.5 fL (80-100); MPV 8.2 fL (7.6-11.3); Monocytes % 6.5 % (3.3-12.3); RBC Red Blood Cell Count 2.47 M/uL (4.33-5.43)
[2018-02-06] MEDS ORDERED: INFLUENZA VACCINE (for 3y+) 0.5 ML DOSE IMVAC ONE (11:00)
--- NOTE | 2018-02-06 11:56 | P.PN ---
Subjective Date of Service: 02/06/18 Chief Complaint: Fever; urinary retention; UTI; pneumonia Subjective: Improving (Hgb stable. No GI bleeding s/sxs. UTI improving with normal WBC today. Urology managing disorders.) Review of Systems 10-point ROS is otherwise unremarkable General: Fever (improved), Malaise (improved) Physical Examination - Vital Signs Temperature: 98.0 F Blood Pressure: 129/72 Pulse: 104 Respirations: 18 Pulse Ox (%): 94 - Physical Exam General: Alert, In no apparent distress, Oriented x3 HEENT: Atraumatic, Normocephalic, PERRLA, EOMI Neck: Supple Cardiovascular: Normal pulses Gastrointestinal: Soft and benign, No tenderness, No rebound, No guarding Neurological: Normal speech - Studies Microbiology Data (last 24 hrs): 02/03/18 22:40 Catheterized Urine Mims Count - Final >100,000 CFU/ML. 02/03/18 22:40 Catheterized Urine - Final Escherichia Coli Medications List Reviewed: Yes Assessment And Plan - Current Problems (Diagnosis) (1) Urinary retention Current Visit: Yes Status: Acute Comment: Improved. (2) Pneumonia Onset Date: 02/05/18 Current Visit: Yes Status: Acute (3) UTI (urinary tract infection) Onset Date: 02/05/18 Current Visit: Yes Status: Acute Comment: Improved with normal WBC today. Qualifiers: Urinary tract infection type: acute cystitis (4) Atrial fibrillation Onset Date: 02/05/18 Current Visit: Yes Status: Chronic Qualifiers: Atrial fibrillation type: chronic Qualified Code(s): I48.2 - Chronic atrial fibrillation (5) CAD (coronary artery disease) Onset Date: 02/05/18 Current Visit: Yes Status: Chronic Qualifiers: Coronary Disease-Associated Artery/Lesion type: [place] artery [place] vs. transplanted heart: [place] heart Associated angina: without angina Qualified Code(s): I25.10 - Atherosclerotic heart disease of [place] coronary artery without angina pectoris (6) CHF (congestive heart failure) Onset Date: 02/05/18 Current Visit: Yes Status: Chronic Qualifiers: Heart failure type: systolic Heart failure chronicity: chronic Qualified Code(s): I50.22 - Chronic systolic (congestive) heart failure (7) COPD (chronic obstructive pulmonary disease) Onset Date: 02/05/18 Current Visit: Yes Status: Chronic Qualifiers: COPD type: chronic bronchitis Chronic bronchitis type: mixed simple and mucopurulent Qualified Code(s): 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 - Plan REC: 1) continue monitoring H&H 2) PPI therapy Physician Review: Patient Assessed, Agree with Above Assessment and Plan
[2018-02-06 16:55] VITALS: BP 129/77; TEMP 99
[2018-02-06 16:56] VITALS: O2SAT 93
[2018-02-06] MEDS ORDERED: WARFARIN SODIUM 5 MG TAB PO SCH (17:00)
--- NOTE | 2018-02-06 17:50 | PN ---
Subjective: The patient is feeling well. Objective: Urine culture grew E. coli in urine and blood, pansensitive. He is currently on Rocephin . Jeffries catheter is draining well. Vital signs: 98.0, pulse 104, respirations 18, BP 129/72, sats 94%. I's and O's: Intake 1425, outp ut 550. Assessment: Urosepsis due to Escherichia coli urinary and blood. Jeffries catheter draining well now. He is going to need about 14-21 days of total antibiotics. Discussed with the pharmacist and we emma l switch Rocephin to Ceftin p.o. he can go home on that for at least another 14 days. His Jeffries cath eter can be switched to a Jeffries plug. We will drain it. I will be out of town next week, but I can remove his Jeffries catheter when I return or he can have it removed in his primary care office and retu rn to the ER for reinsertion if necessary. However, it was explained to him that the longer he leave s with it more likely the bladder will work when we removed it and he is in agreement with that to go ing home with a Jeffries plug. LUPILLO/ZAFAR Voice ID: [id number] Report ID: [id number]
[2018-02-06] MEDS ORDERED: CEFUROXIME 250 MG TAB PO SCH (21:00)
--- NOTE | 2018-02-07 04:44 | DS ---
Date of Discharge: 02/06/2018 Consultants: Dr. Kim with GI, Dr. Best with Urology. Admitting Diagnoses: 1.Urinary tract infection. 2.Pneumonia. 3.Anemia due to acute blood loss. 4.Deep venous thrombosis. 5.Atrial fibrillation with rapid ventricular response. 6.Chronic obstructive pulmonary disease. Discharge Diagnoses: 1.Urinary retention, status post Jeffries catheter placement. 2.Pneumonia. 3.Urinary tract infection, acute cystitis secondary to Escherichia coli. 4.Escherichia coli bacteremia. 5.Chronic atrial fibrillation, now with controlled ventricular rate. 6.Coronary artery disease, jena artery and jena heart without angina. 7.Chronic systolic heart failure, stable. 8.Chronic obstructive pulmonary disease, chronic bronchitis. 9.Anemia due to acute blood loss, anticoagulation on hold. Hospital Course: The patient is an 82-year-old male with a past medical history of atrial fibrillati on, on Coumadin; history of DVT; COPD; GI bleed; hypertension; CHF; heart disease; hyperlipidemia; pa cemaker; watchman procedure; who was discharged from outside hospital in [facility] and came into the ER after discharge for fever and urinary retention. The patient was found to have UTI and pneumonia. Cultures were obtained. He was started on IV antibiotics. His anticoagulat ion was held due to his recent GI bleed and low hemoglobin level. The patient's hemoglobin remained stable. He did not require any transfusions. The patient was found to be iron deficiency anemic. H is urine culture grew out E. coli which was pansensitive. Blood culture was also positive for E. col i. His influenza screen was negative. The patient was ambulating well with assistive device. The p atient was seen by Dr. Best for urinary retention and Jeffries catheter was placed. Dr. Best recommen ds continuing Jeffries catheter until he sees him as an outpatient and to continue Flomax. The patient was also seen by Dr. Best for his history of GI bleed, recommended continue to hold anticoagulation. He will need to hold his Coumadin for another week. Recheck his H and H, and if stable, can resume his anticoagulation. The patient otherwise was doing well. He was then discharged in a stable cond ition. Activity: Fall precautions. Medications: As per medication reconciliation list. Finish up course of cefuroxime 500 b.i.d. for 1 4 days. Followup: Follow up with primary care physician in 2 to 3 days. Follow up with urologist, Dr. Best in 2 weeks. Follow up with GI, Dr. Kim in 2 weeks. Follow up with nurses educator in 2 to 4 weeks. Return to ER for worsening condition. Diet: Heart healthy. Physical Examination: General: Awake, alert, oriented x3. No acute distress. Elderly male. CV: S1, S2. No murmurs. Respiratory: Moving air well bilaterally. Abdomen: Soft, nontender, nondistended. Positive bowel sounds. Extremities: No clubbing, cyanosis, or edema. Neuro: Nonfocal. Code Status: Full. Total time spent discharging the patient was 39 minutes. CHARLES Voice ID: [id number] Report ID: [id number]
--- NOTE | 2018-03-05 08:56 | CON ---
Date of Consultation: 02/04/2018 Reason For Consultation: Upper gastrointestinal bleed possibly from small AVMs. History Of Present Illness: The patient is an 82-year-old white male, who came to the hospital due t o fevers, chills, shakes. The patient was recently discharged from [facility] where he was admitted for upper GI bleeding, had endoscopies done there include an enteroscopies/smal l-bowel endoscopy with ablation of arteriovenous malformations. The patient states he had 3-4 EGDs a nd enteroscopies at the hospital there. Hemoglobin was 6.3, before enteroscopy was 8.4 afterwards, a nd upon his discharge from the [facility] and now his hemoglobin is 8.5, and appears to be stab le. The patient states he has not had any more bleeding since discharge from the [facility] as well. The patient already ate today and appears to have chronic anemia. He denies any melena, wu tochezia, hematemesis, coffee-grounds emesis. Now, no hemoptysis, hematuria, dysuria, polydipsia, ch est pain, shortness of breath, seizures. 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 The patient reportedly admitted here due to fevers, chills, shakes with urinary retention, urinary tract infection. Other past medical history includes DVT, high cholesterol, pacemaker, left hip replacement, and Green field filter. Allergies: PLAVIX. Home Medicines: Include aspirin, iron, Pravachol, amiodarone, Lasix, gabapentin, Isordil, metoprolol , senna, docusate, tamsulosin, Anoro Ellipta, and Coumadin. Family History: The patient was adopted, does not know his parents. Social History: , 2 children. Quit tobacco in 1989. Has occasional alcohol. Physical Examination: Vital Signs: Stable. The patient has a height of 5 feet 11 inches, weight of 202 pounds. HEENT: Normocephalic, atraumatic. Anicteric. Pupils equal, round, and reactive to light. Extraocu lar movements intact. Oropharynx is clear. Neck: Supple. No masses. Respirations: Clear to auscultation bilaterally. Cardiac: Regular rate and rhythm. No gallops or rubs. Abdomen: Positive bowel sounds. Soft, nontender, nondistended. Neuro: Alert and oriented x3. Grossly nonfocal. 5/5 motor. Sensation intact to light touch. Laboratory Data: The patient has a white count of 14.2, up from 11.5 yesterday; hemoglobin 9.5; wu tocrit 28.8; MCV of 103, platelet count 128, polys 93%, lymphocytes 2%, monocytes 5%. PT of 14.6, IN R of 1.2, PTT of 38.2. Sodium 142, potassium 3.8, chloride 111, bicarb 24, BUN of 21, creatinine of 1.3, glucose 110, lactate of 1.9, calcium 7.8, phosphorus 1.5, magnesium 2.1. Iron saturation 5.7%, low ferritin 480.7, high. Total bilirubin of 1.1, direct bilirubin 0.3 yesterday. AST of 23, ALT of 17, alkaline phosphatase 66, LDH of 244, elevated, total protein 7.2, albumin 3.0. B12 of 571, beau te of 18.3. TSH of 1.6, free T4 of 1.3. Triglycerides 59, cholesterol 103, LDL of 49. UA; 1+ blood , 2+ leukocyte esterase, greater than 50 white blood cells, less than 5 squamous epithelial cells, 2+ protein, negative for UTI. CT of the chest revealed prominent COPD, possible atelectasis developing pneumonia in the right lower lobe. 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 Hemoglobin was 6.3 on admission at that hospital, on discharge, he had a hemogl obin 8.4, and now his hemoglobin is 8.5, and appear stable. Chronic anemia since that time. The pat ient already ate today. The patient states he has had no more bleeding since discharge from the [facility]. There is no melena, hematochezia, hematemesis, coffee-grounds emesis, hematuria, dysur ia, polydipsia. 2.History of atrial fibrillation, urinary retention, urinary tract infection, fevers, chronic obstru ctive pulmonary disease, post-traumatic stress disorder, coronary artery disease, hypertension, and o ther as per above. 3.The patient admitted here due to fever from urinary tract infection, urinary retention with Urolog y seeing patient with Jeffries in place now. Recommendation: 1.Serial H and H and transfuse p.r.n. 2.PPI therapy. 3.EGD. 4.Repeat enteroscopy, small-bowel endoscopy at tertiary center. AMBER/ZAFAR Voice ID: [id number] Report ID: [id number]
--- NOTE | 2018-03-08 20:49 | P.PN ---
Date of Service: 02/06/18 ADDENDUM to DC summary 02/06/18 A/P: 1. Sepsis present on admission. Secondary to UTI. BP 98/49, fever 100.8, elevated WBC
== END 2018-02-06 18:10 | disposition home or self-care (01) | DRG 689 ==
LOC: ER 19:51 → ERHOLD 23:35 → 4TH 02-04 02:45 → OBSVTOIN 02-05 17:30
PROVIDERS: ADMIT Hospitalist; ATTEND Family Medicine
DX: N30.00 Acute cystitis without hematuria (principal); J18.9 Pneumonia, unspecified organism; R78.81 Bacteremia; D62 Acute posthemorrhagic anemia; K92.2 Gastrointestinal hemorrhage, unspecified; I50.22 Chronic systolic (congestive) heart failure; I48.91 Unspecified atrial fibrillation; Z79.01 Long term (current) use of anticoagulants; E78.00 Pure hypercholesterolemia, unspecified; Z88.8 Allergy status to other drugs, medicaments and biological substances; Z96.642 Presence of left artificial hip joint; Z95.0 Presence of cardiac pacemaker; I25.10 Atherosclerotic heart disease of native coronary artery without angina pectoris; Z87.891 Personal history of nicotine dependence; J41.8 Mixed simple and mucopurulent chronic bronchitis; I11.0 Hypertensive heart disease with heart failure; N40.1 Benign prostatic hyperplasia with lower urinary tract symptoms; R33.8 Other retention of urine; B96.20 Unspecified Escherichia coli [E. coli] as the cause of diseases classified elsewhere; Z86.718 Personal history of other venous thrombosis and embolism
CPT/HCPCS: 36415; 51702; 71045; 71250; 80048; 80053; 80061; 80076; 81003; 81015; 82533; 82550; 82607; 82728; 82746; 82962; 83540; 83605; 83615; 83690; 83735; 84100; 84145; 84439; 84443; 84466; 84484; 85025; 85044; 85610; 85730; 87040; 87077; 87086; 87088; 87186; 87205; 87804; 93005; 96361; 96365; 96367; 99284; 99285; C9113; G0008; G0378; J0692; J0696; J2270; J7030; P9047; Q2035

== ENCOUNTER 2018-02-06 22:55 | Emergency (ER) | payer OTHER ==
--- NOTE | 2018-02-07 00:45 | EDPHYS ---
Physician Documentation [facility] Name: Ruy Mora Age: 82 yrs Sex: Male : 1935 Arrival Date: 02/06/2018 Time: 22:56 Bed 20 Private MD: ED Physician Benson Irving HPI: 02/07 00:00 This 82 yrs old Male presents to ER via Wheelchair with complaints of Problem pm1 With Urinary Catheter. 00:00 The patient presents with a Jeffries catheter problem, is leaking urine. Onset: The pm1 symptoms/episode began/occurred just prior to arrival. Modifying factors: The symptoms are alleviated by nothing, the symptoms are aggravated by nothing. Associated signs and symptoms: Pertinent negatives: abdominal pain, dysuria, fever, hematuria, nausea, vomiting. The patient has not experienced similar symptoms in the past. The patient has been recently been admitted at [facility], was discharged earlier today, urinary tract infection. patient presents today with complaints of leaking around his catheter while draining his catheter. Historical: - Allergies: 02/06 23:22 Plavix; jd3 - Home Meds: 23:22 amiodarone 200 mg Oral tab 1 tab once daily [Active]; Anoro Ellipta 62.5-25 jd3 mcg/actuation inhalation dsdv 1 puff once daily [Active]; aspirin 81 mg Oral chew 1 tab once daily [Active]; ferrous sulfate 325 mg (65 mg iron) Oral tab twice a day [Active]; furosemide 40 mg Oral tab 1 tab once daily [Active]; gabapentin 300 mg Oral cap 2 caps twice a day [Active]; Imdur 30 mg Oral Tb24 1 tab twice a day [Active]; metoprolol tartrate 25 mg Oral tab 1 tab 2 times per day [Active]; pravastatin 80 mg Oral tab 1 tab once daily [Active]; Senna with Docusate Sodium 8.6-50 mg Oral tab 1 tabs nightly [Active]; tamsulosin 0.4 mg Oral cp24 1 cap once daily [Active]; warfarin 5 mg Oral tab 1 tab once daily [Active]; - PMHx: 23:22 Atrial Fib; CHF; CAD; GI Bleed; COPD; Hypertension; High Cholesterol; jd3 - Immunization history:: Adult Immunizations unknown. - Social history:: Smoking status: unknown. - Ebola Screening: : Patient negative for fever greater than or equal to 101.5 degrees Fahrenheit, and additional compatible Ebola Virus Disease symptoms. ROS: 02/07 00:00 Constitutional: Negative for fever, chills, and weight loss, Eyes: Negative for injury, pm1 pain, redness, and discharge, ENT: Negative for injury, pain, and discharge, Neck: Negative for injury, pain, and swelling, Cardiovascular: Negative for chest pain, palpitations, and edema, Respiratory: Negative for shortness of breath, cough, wheezing, and pleuritic chest pain, Abdomen/GI: Negative for abdominal pain, nausea, vomiting, diarrhea, and constipation, Back: Negative for injury and pain, : Negative for injury, bleeding, discharge, and swelling, MS/Extremity: Negative for injury and deformity, Skin: Negative for injury, rash, and discoloration, Neuro: Negative for headache, weakness, numbness, tingling, and seizure. Exam: 00:00 Constitutional: This is a well developed, well nourished patient who is awake, alert, pm1 and in no acute distress. Head/Face: Normocephalic, atraumatic. Eyes: Pupils equal round and reactive to light, extra-ocular motions intact. Lids and lashes normal. Conjunctiva and sclera are non-icteric and not injected. Cornea within normal limits. Periorbital areas with no swelling, redness, or edema. ENT: Nares patent. No nasal discharge, no septal abnormalities noted. Tympanic membranes are normal and external auditory canals are clear. Oropharynx with no redness, swelling, or masses, exudates, or evidence of obstruction, uvula midline. Mucous membranes moist. Neck: Trachea midline, no thyromegaly or masses palpated, and no cervical lymphadenopathy. Supple, full range of motion without nuchal rigidity, or vertebral point tenderness. No Meningismus. Chest/axilla: Normal chest wall appearance and motion. Nontender with no deformity. No lesions are appreciated. 00:00 Respiratory: Lungs have equal breath sounds bilaterally, clear to auscultation and percussion. No rales, rhonchi or wheezes noted. No increased work of breathing, no retractions or nasal flaring. Abdomen/GI: Soft, non-tender, with normal bowel sounds. No distension or tympany. No guarding or rebound. No evidence of tenderness throughout. Back: No spinal tenderness. No costovertebral tenderness. Full range of motion. Skin: Warm, dry with normal turgor. Normal color with no rashes, no lesions, and no evidence of cellulitis. MS/ Extremity: Pulses equal, no cyanosis. Neurovascular intact. Full, normal range of motion. 00:00 Cardiovascular: Rate: tachycardic, Rhythm: irregular, Pulses: no pulse deficits are appreciated, Heart sounds: normal, Edema: is not appreciated. 00:00 Neuro: Orientation: is normal, Motor: is normal, moves all fours, Sensation: is normal, no obvious gross deficits. Vital Signs: 02/06 23:22 BP 130 / 73; Pulse 120; Resp 20 S; Temp 99.5(O); Pulse Ox 94% on 2 lpm NC; Weight 89.81 jd3 kg (R); Height 5 ft. 11 in. (180.34 cm) (R); Pain 0/10; 23:54 BP 101 / 63; Pulse 112; Resp 16; Pulse Ox 95% on 2 lpm NC; mt 02/07 00:37 BP 121 / 69; Pulse 110 AP; Resp 19 S; Pulse Ox 94% on 2 lpm NC; Pain 0/10; jd3 02/06 23:22 Body Mass Index 27.62 (89.81 kg, 180.34 cm) jd3 MDM: 02/06 23:58 Patient medically screened. pm1 02/07 00:40 ED course: Patient concerned that his heart rate was elevated. Auscultated heart rate pm1 110. Patient without chest pain or shortness of breath. Recommended cardiac workup and patient refused. 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 00:42 Data reviewed: vital signs. Counseling: I had a detailed discussion with the patient pm1 and/or guardian regarding: the historical points, exam findings, and any diagnostic results supporting the discharge/admit diagnosis, the need for outpatient follow up, a urologist, to return to the emergency department if symptoms worsen or persist or if there are any questions or concerns that arise at home. 02/07 00:07 Order name: Mervin; Complete Time: 00:20 jd3 Administered Medications: No medications were administered Disposition: 04:25 Co-signature as Attending Physician, Benson Irving MD I agree with the assessment and wa plan of care. Disposition: 02/07/18 00:45 Discharged to Home. Impression: Encounter for fitting and adjustment of urinary device. - Condition is Stable. - Discharge Instructions: Jeffries Catheter Care, Adult. - Medication Reconciliation Form, Thank You Letter, Antibiotic Education, Prescription Opioid Use form. - Follow up: Fausto Best MD; When: 2 - 3 days; Reason: Recheck today's complaints, Continuance of care, Re-evaluation by your physician. - Problem is new. - Symptoms have improved. Signatures: Andrew Wilson NP LIME PLANT OPERATOR pm1 Benson Irving MD MD wa Davies, Jonathon RN RN jd3 Corrections: (The following items were deleted from the chart) 00:59 00:45 02/07/2018 00:45 Discharged to Home. Impression: Encounter for fitting and jd3 adjustment of urinary device. Condition is Stable. Forms are Medication Reconciliation Form, Thank You Letter, Antibiotic Education, Prescription Opioid Use. Follow up: Fausto Best; When: 2 - 3 days; Reason: Recheck today's complaints, Continuance of care, Re-evaluation by your physician. Problem is new. Symptoms have improved. pm1
--- NOTE | 2018-02-07 00:45 | ER ---
Nurse's Notes [facility] Name: Ruy Mora Age: 82 yrs Sex: Male : 1935 Arrival Date: 02/06/2018 Time: 22:56 Bed 20 Private MD: Diagnosis: Encounter for fitting and adjustment of urinary device Presentation: 02/06 23:16 Presenting complaint: Patient states: "I got out of the hospital at 1730 today for a jd3 bladder infection and they put in a catheter and I was lying in bed when I noticed I was all wet. I don't know if they put it in wrong or what but I had pee everywhere.". Transition of care: patient was not received from another setting of care. Onset of symptoms was February 06, 2018. Risk Assessment: Do you want to hurt yourself or someone else? Patient reports no desire to harm self or others. Initial Sepsis Screen: Does the patient meet any 2 criteria? No. Patient's initial sepsis screen is negative. Does the patient have a suspected source of infection? No. Patient's initial sepsis screen is negative. Care prior to arrival: None. 23:16 Method Of Arrival: Wheelchair jd3 23:16 Acuity: LUTHER 4 jd3 Historical: - Allergies: 23:22 Plavix; jd3 - Home Meds: 23:22 amiodarone 200 mg Oral tab 1 tab once daily [Active]; Anoro Ellipta 62.5-25 jd3 mcg/actuation inhalation dsdv 1 puff once daily [Active]; aspirin 81 mg Oral chew 1 tab once daily [Active]; ferrous sulfate 325 mg (65 mg iron) Oral tab twice a day [Active]; furosemide 40 mg Oral tab 1 tab once daily [Active]; gabapentin 300 mg Oral cap 2 caps twice a day [Active]; Imdur 30 mg Oral Tb24 1 tab twice a day [Active]; metoprolol tartrate 25 mg Oral tab 1 tab 2 times per day [Active]; pravastatin 80 mg Oral tab 1 tab once daily [Active]; Senna with Docusate Sodium 8.6-50 mg Oral tab 1 tabs nightly [Active]; tamsulosin 0.4 mg Oral cp24 1 cap once daily [Active]; warfarin 5 mg Oral tab 1 tab once daily [Active]; - PMHx: 23:22 Atrial Fib; CHF; CAD; GI Bleed; COPD; Hypertension; High Cholesterol; jd3 - Immunization history:: Adult Immunizations unknown. - Social history:: Smoking status: unknown. - Ebola Screening: : Patient negative for fever greater than or equal to 101.5 degrees Fahrenheit, and additional compatible Ebola Virus Disease symptoms. Screenin:25 Abuse screen: Denies threats or abuse. Nutritional screening: No deficits noted. jd3 Tuberculosis screening: No symptoms or risk factors identified. Fall Risk Ambulatory Aid- Crutches/Cane/Walker (15 pts). Gait- Weak (10 pts.). Mental Status- Oriented to own ability (0 pts). Total Norris Fall Scale indicates Low Risk Score (25-44 pts). Fall prevention measures have been instituted. Side Rails Up X 2 Placed close to Nursing Station Frequent Obs/Assesments occuring Family Present and informed to notify staff if they need to leave bedside. Assessment: 23:23 General: Appears in no apparent distress. uncomfortable, Behavior is calm, cooperative, jd3 appropriate for age. Pain: Denies pain. Neuro: Level of Consciousness is awake, alert, obeys commands, Oriented to person, place, time, situation, Appropriate for age. Cardiovascular: Capillary refill < 3 seconds Patient's skin is warm and dry. Respiratory: Airway is patent Respiratory effort is even, unlabored, Respiratory pattern is regular, symmetrical. GI: No signs and/or symptoms were reported involving the gastrointestinal system. : Jeffries in place clamped. EENT: No signs and/or symptoms were reported regarding the EENT system. Derm: Skin is intact, Skin is dry, Skin is normal, Skin temperature is warm. Musculoskeletal: Circulation, motion, and sensation intact. Range of motion: intact in all extremities. 02/07 00:59 Reassessment: Patient appears in no apparent distress at this time. Patient and/or jd3 family updated on plan of care and expected duration. Pain level reassessed. Patient is alert, oriented x 3, equal unlabored respirations, skin warm/dry/pink. Vital Signs: 02/06 23:22 BP 130 / 73; Pulse 120; Resp 20 S; Temp 99.5(O); Pulse Ox 94% on 2 lpm NC; Weight 89.81 jd3 kg (R); Height 5 ft. 11 in. (180.34 cm) (R); Pain 0/10; 23:54 BP 101 / 63; Pulse 112; Resp 16; Pulse Ox 95% on 2 lpm NC; mt 10 00:37 BP 121 / 69; Pulse 110 AP; Resp 19 S; Pulse Ox 94% on 2 lpm NC; Pain 0/10; jd3 02/06 23:22 Body Mass Index 27.62 (89.81 kg, 180.34 cm) jd3 ED Course: 02/06 22:56 Patient arrived in ED. ds1 23:02 Edison Su, RN is Primary Nurse. jd3 23:19 Triage completed. jd3 23:23 Arm band placed on. jd3 23:25 Andrew Wilson NP is PHCP. pm1 23:25 Benson Irving MD is Attending Physician. pm1 23:26 Patient has correct armband on for positive identification. Placed in gown. Bed in low jd3 position. Call light in reach. Side rails up X 1. Adult w/ patient. 02/07 00:18 Jeffries cath inserted, using sterile technique, 18 Fr., by pa, balloon inflated, to ky gravity drainage, Patient tolerated well. 00:43 Fausto Best MD is Referral Physician. pm1 00:58 No provider procedures requiring assistance completed. Patient did not have IV access jd3 during this emergency room visit. Administered Medications: No medications were administered Outcome: 00:45 Discharge ordered by . pm1 00:59 Discharged to home via wheelchair, with family. jd3 00:59 Condition: stable 00:59 Discharge instructions given to patient, family, Instructed on discharge instructions, follow up and referral plans. Demonstrated understanding of instructions, follow-up care. 00:59 Patient left the ED. jd3 Signatures: Izzy Sue ds1 Andrew Wilson NP [employer] pm1 Ann-Marie Lozada ky Edison Su RN RN jd3
[2018-02-07 01:21] VITALS: TEMP 99.5
[2018-02-07 01:24] VITALS: BP 121/69; O2SAT 94
== END 2018-02-07 00:59 | disposition home or self-care (01) ==
LOC: ER 22:55
DX: Z46.82 Encounter for fitting and adjustment of non-vascular catheter (principal); I10 Essential (primary) hypertension; E78.00 Pure hypercholesterolemia, unspecified; I48.91 Unspecified atrial fibrillation; I50.9 Heart failure, unspecified; J44.9 Chronic obstructive pulmonary disease, unspecified; Z79.01 Long term (current) use of anticoagulants; Z79.82 Long term (current) use of aspirin
CPT/HCPCS: 51702; 99284

== ENCOUNTER 2018-02-12 10:16 | Emergency (ER) | payer OTHER ==
--- NOTE | 2018-02-12 11:03 | ER ---
Nurse's Notes [facility] Name: Ruy Mora Age: 82 yrs Sex: Male : 1935 Arrival Date: 02/12/2018 Time: 10:20 Bed 15 Private MD: Martha Combs R Diagnosis: Urinary catheterization as the cause of abnormal reaction of the patient, or of later complication, without mention of misadventure at the time of the procedure Presentation: 02/12 10:22 Presenting complaint: Significant other states: "he got a thomason put in about a week ago aa5 at Dr. Best's but he can't tolerate it anymore, it's too painful so Dr. Best's office said to come in to the ER to get the thomason out". Transition of care: patient was not received from another setting of care. Onset of symptoms was February 12, 2018. Risk Assessment: Do you want to hurt yourself or someone else? Patient reports no desire to harm self or others. Initial Sepsis Screen: Does the patient meet any 2 criteria? No. Patient's initial sepsis screen is negative. Does the patient have a suspected source of infection? No. Patient's initial sepsis screen is negative. Care prior to arrival: None. 10:22 Method Of Arrival: Ambulatory aa5 10:22 Acuity: LUTHER 4 aa5 Historical: - Allergies: 10:25 Plavix; aa5 - Home Meds: 10:31 amiodarone 200 mg Oral tab 1 tab once daily [Active]; Anoro Ellipta 62.5-25 tw2 mcg/actuation inhalation dsdv 1 puff once daily [Active]; aspirin 81 mg Oral chew 1 tab once daily [Active]; ferrous sulfate 325 mg (65 mg iron) Oral tab twice a day [Active]; furosemide 40 mg Oral tab 1 tab once daily [Active]; gabapentin 300 mg oral cap [Active]; Imdur 30 mg Oral Tb24 1 tab twice a day [Active]; metoprolol tartrate 25 mg Oral tab 1 tab 2 times per day [Active]; pravastatin 80 mg Oral tab 1 tab once daily [Active]; Senna with Docusate Sodium 8.6-50 mg Oral tab 1 tabs nightly [Active]; tamsulosin 0.4 mg Oral cp24 1 cap once daily [Active]; warfarin 5 mg Oral tab 1 tab once daily [Active]; - PMHx: 10:25 Atrial Fib; CAD; CHF; COPD; GI Bleed; High Cholesterol; Hypertension; Home O2 as needed;aa5 - PSHx: 10:26 Pacemaker; aa5 - Immunization history:: Adult Immunizations. - Ebola Screening: : No symptoms or risks identified at this time. - Social history:: Smoking status: . Screenin:29 Abuse screen: Denies threats or abuse. Nutritional screening: No deficits noted. tw2 Tuberculosis screening: No symptoms or risk factors identified. Fall Risk None identified. Assessment: 10:31 Reassessment: pain where urinary catheter is in place. General: Appears in no apparent tw2 distress. Behavior is calm, cooperative, appropriate for age. Neuro: Level of Consciousness is awake, alert, obeys commands, Oriented to person, place, time, situation. Cardiovascular: Denies chest pain, shortness of breath, Patient's skin is warm and dry. Respiratory: Airway is patent Respiratory effort is even, unlabored, Respiratory pattern is regular, symmetrical. GI: No signs and/or symptoms were reported involving the gastrointestinal system. : Reports pain urinary catheter. EENT: No signs and/or symptoms were reported regarding the EENT system. Derm: No signs and/or symptoms reported regarding the dermatologic system. Musculoskeletal: No signs and/or symptoms reported regarding the musculoskeletal system. Range of motion: intact in all extremities. Vital Signs: 10:25 BP 100 / 57; Pulse 95; Resp 18 S; Temp 98.6(TE); Pulse Ox 93% on R/A; Weight 91.63 kg aa5 (R); Height 5 ft. 11 in. (180.34 cm) (R); Pain 2/10; 10:25 Body Mass Index 28.17 (91.63 kg, 180.34 cm) aa5 ED Course: 10:20 Patient arrived in ED. mr 10:21 Martha Combs MD is Private Physician. mr 10:22 Arm band placed on. aa5 10:24 Triage completed. aa5 10:28 Jillian Valdez RN is Primary Nurse. tw2 10:29 Bed in low position. Adult w/ patient. Pulse ox on. NIBP on. tw2 10:46 Benja Miller MD is Attending Physician. gs 11:01 Fausto Best MD is Referral Physician. gs 11:02 Harry Carroll MD is Referral Physician. gs 11:04 No provider procedures requiring assistance completed. Patient tolerated well. Thomason tw2 cath removed intact, balloon deflated. present at bedside. Patient did not have IV access during this emergency room visit. Administered Medications: No medications were administered Outcome: 11:02 Discharge ordered by MD. gs 11:08 Discharged to home ambulatory, with significant other. tw2 11:08 Condition: stable 11:08 Discharge instructions given to patient, significant other, Instructed on discharge instructions, follow up and referral plans. need to monitor urine output, urinal provided, instructed to f/u with dr. sue office Demonstrated understanding of instructions, follow-up care. 11:09 Patient left the ED. tw2 Signatures: Augustina Lucia mr Seay, Rose, RN RN aa5 Jillian Valdez RN RN tw2 Benja Miller MD MD Corrections: (The following items were deleted from the chart) 10:26 10:25 BP 100 / 57; Pulse 95bpm; Resp 18bpm; Spontaneous; Pulse Ox 93% RA; Temp 98.6F aa5 Temporal; aa5
--- NOTE | 2018-02-12 11:03 | EDPHYS ---
Physician Documentation [facility] Name: Ruy Mora Age: 82 yrs Sex: Male : 1935 Arrival Date: 02/12/2018 Time: 10:20 Bed 15 Private MD: Martha Combs R ED Physician Benja Miller HPI: 02/12 10:59 This 82 yrs old Male presents to ER via Ambulatory with complaints of Problem gs With Urinary Catheter. 10:59 The patient presents with a Thomason catheter problem, painful wants out. Onset: The gs symptoms/episode began/occurred today. Associated signs and symptoms: Pertinent negatives: fever. Severity of symptoms: At their worst the symptoms were moderate, in the emergency department the symptoms are unchanged. The patient has experienced similar episodes in the past, a few times. Historical: - Allergies: 10:25 Plavix; aa5 - Home Meds: 10:31 amiodarone 200 mg Oral tab 1 tab once daily [Active]; Anoro Ellipta 62.5-25 tw2 mcg/actuation inhalation dsdv 1 puff once daily [Active]; aspirin 81 mg Oral chew 1 tab once daily [Active]; ferrous sulfate 325 mg (65 mg iron) Oral tab twice a day [Active]; furosemide 40 mg Oral tab 1 tab once daily [Active]; gabapentin 300 mg oral cap [Active]; Imdur 30 mg Oral Tb24 1 tab twice a day [Active]; metoprolol tartrate 25 mg Oral tab 1 tab 2 times per day [Active]; pravastatin 80 mg Oral tab 1 tab once daily [Active]; Senna with Docusate Sodium 8.6-50 mg Oral tab 1 tabs nightly [Active]; tamsulosin 0.4 mg Oral cp24 1 cap once daily [Active]; warfarin 5 mg Oral tab 1 tab once daily [Active]; - PMHx: 10:25 Atrial Fib; CAD; CHF; COPD; GI Bleed; High Cholesterol; Hypertension; Home O2 as needed;aa5 - PSHx: 10:26 Pacemaker; aa5 - Immunization history:: Adult Immunizations. - Ebola Screening: : No symptoms or risks identified at this time. - Social history:: Smoking status: . ROS: 10:59 All other systems are negative. gs Exam: 10:59 ENT: Nares patent. No nasal discharge, no septal abnormalities noted. Tympanic gs membranes are normal and external auditory canals are clear. Oropharynx with no redness, swelling, or masses, exudates, or evidence of obstruction, uvula midline. Mucous membranes moist. Cardiovascular: Regular rate and rhythm with a normal S1 and S2. No gallops, murmurs, or rubs. Normal PMI, no JVD. No pulse deficits. Respiratory: Lungs have equal breath sounds bilaterally, clear to auscultation and percussion. No rales, rhonchi or wheezes noted. No increased work of breathing, no retractions or nasal flaring. Abdomen/GI: Soft, non-tender, with normal bowel sounds. No distension or tympany. No guarding or rebound. No evidence of tenderness throughout. Back: No spinal tenderness. No costovertebral tenderness. Full range of motion. Skin: Warm, dry with normal turgor. Normal color with no rashes, no lesions, and no evidence of cellulitis. MS/ Extremity: Pulses equal, no cyanosis. Neurovascular intact. Full, normal range of motion. Neuro: Awake and alert, GCS 15, oriented to person, place, time, and situation. Cranial nerves II-XII grossly intact. Motor strength 5/5 in all extremities. Sensory grossly intact. Cerebellar exam normal. Normal gait. 10:59 Constitutional: The patient appears alert, awake, non-toxic. Vital Signs: 10:25 BP 100 / 57; Pulse 95; Resp 18 S; Temp 98.6(TE); Pulse Ox 93% on R/A; Weight 91.63 kg aa5 (R); Height 5 ft. 11 in. (180.34 cm) (R); Pain 2/10; 10:25 Body Mass Index 28.17 (91.63 kg, 180.34 cm) aa5 MDM: 10:53 Patient medically screened. gs 10:59 Differential diagnosis: urinary retention, Thomason catheter problem. Data reviewed: vital gs signs, nurses notes. Response to treatment: the patient's symptoms have markedly improved after treatment, and as a result, I will discharge patient. 02/12 10:58 Order name: Karan. Order: remove thomason; Complete Time: 11:04 gs Administered Medications: No medications were administered Disposition: 02/12/18 11:02 Discharged to Home. Impression: Urinary catheterization as the cause of abnormal reaction of the patient, or of later complication, without mention of misadventure at the time of the procedure. - Condition is Stable. - Discharge Instructions: Thomason Catheter Care, Adult, [id number]. - Medication Reconciliation Form, Thank You Letter, Antibiotic Education, Prescription Opioid Use form. - Follow up: Fausto Best MD; When: 2 - 3 days; Reason: Re-evaluation by your physician. Follow up: Harry Carroll MD; When: 2 - 3 days; Reason: Re-evaluation by your physician. Signatures: Rose Seay RN RN aa5 Jillian Valdez RN RN tw2 Benja Miller MD MD gs Corrections: (The following items were deleted from the chart) 11:09 11:02 02/12/2018 11:02 Discharged to Home. Impression: Urinary catheterization as the tw2 cause of abnormal reaction of the patient, or of later complication, without mention of misadventure at the time of the procedure. Condition is Stable. Forms are Medication Reconciliation Form, Thank You Letter, Antibiotic Education, Prescription Opioid Use. Follow up: Fausto Best; When: 2 - 3 days; Reason: Re-evaluation by your physician. Follow up: Harry Carroll; When: 2 - 3 days; Reason: Re-evaluation by your physician. gs
[2018-02-12 11:12] VITALS: BP 100/57; TEMP 98.6; O2SAT 93
== END 2018-02-12 11:09 | disposition home or self-care (01) ==
LOC: ER 10:16
DX: T83.84XA Pain due to genitourinary prosthetic devices, implants and grafts, initial encounter (principal); Y84.6 Urinary catheterization as the cause of abnormal reaction of the patient, or of later complication, without mention of misadventure at the time of the procedure; Z79.82 Long term (current) use of aspirin; Z88.8 Allergy status to other drugs, medicaments and biological substances; Z95.0 Presence of cardiac pacemaker; I10 Essential (primary) hypertension; I48.91 Unspecified atrial fibrillation; I50.9 Heart failure, unspecified; J44.9 Chronic obstructive pulmonary disease, unspecified; E78.00 Pure hypercholesterolemia, unspecified
CPT/HCPCS: 99283

== ENCOUNTER 2023-08-26 14:53 | Inpatient (IN) | payer OTHER ==
[2023-08-26 20:30] LABS: Specific Gravity 1.012 (1.005-1.030); Urine Bilirubin NEGATIVE (Negative); Urine Blood Negative (Negative); Urine Clarity Clear (Clear); Urine Color Light-Yellow (Yellow); Urine Glucose NEGATIVE (Negative); Urine Ketones NEGATIVE (Negative); Urine Microscopic Reflex YN NO UMIC; Urine Nitrite NEGATIVE (Negative); Urine Protein NEGATIVE (Negative); Urine Urobilinogen Normal (Normal); Urine pH 5.5 (5.0-7.0)
[2023-08-26 20:37] VITALS: BMI 23.7
[2023-08-26] MEDS: ATORVASTATIN 10 MG TAB PO SCH (20:55)
[2023-08-26] MEDS: DOXYCYCLINE 100 MG CAP PO SCH (20:55)
[2023-08-26] MEDS ORDERED: ACETAMINOPHEN 500 MG TAB PO PRN (22:13)
[2023-08-27 05:49] LABS: Absolute Lymphocytes (CBC) 0.3 K/uL (0.7-4.9); Absolute Monocytes 0.7 K/uL (0.1-1.3); Absolute Neutrophil 11.2 K/uL (1.8-8.0); Basophils % 0.1 % (0-1.3); Hematocrit 25.9 % (39.6-49.0); Hemoglobin 8.4 g/dL (13.6-17.9); Lymphocytes % 2.5 % (15.3-44.8); MCH 32.7 pg (27.0-35.0); MCHC 32.6 g/dL (32.0-36.0); MCV 100.4 fL (80-100); MPV 7.8 fL (7.6-11.3); Monocytes % 5.5 % (3.3-12.3); Neutrophils % 91.9 % (41.7-73.7); Platelets 160 thou/uL (152-406); RBC Red Blood Cell Count 2.58 M/uL (4.33-5.43); Red Cell Distribution Width 18.6 % (12.1-15.2)
[2023-08-27 06:30] LABS: Albumin 2.5 g/dL (3.4-5.0); Anion Gap 8.9 mEq/L (5.0-15.0); Digoxin Level 1.1 ng/mL (0.80-2.00); Magnesium 1.8 mg/dL (1.6-2.4); Potassium 3.9 mEq/L (3.5-5.1); Prealbumin 15.5 mg/dL (20-40)
[2023-08-27 06:54] LABS: Anisocytosis 1+; Blood Morphology Comment NOTED (NOT SEEN); Hypochromasia 1+; Platelet Estimate ADEQ; Poikilocytosis 1+; White Blood Cell Scan OK (OK)
[2023-08-27] MEDS: GABAPENTIN 300 MG CAP PO SCH (07:44)
[2023-08-27] MEDS: POTASSIUM CL SA 10 MEQ TAB PO SCH (07:44)
[2023-08-27] MEDS: TAMSULOSIN 0.4 MG SR CAP PO SCH (07:44)
[2023-08-27] MEDS: METOPROLOL TAR 50 MG TAB PO SCH (07:44)
[2023-08-27] MEDS: FERROUS SULFATE 325 MG TAB PO SCH ×2 (07:45→20:11)
[2023-08-27] MEDS: FUROSEMIDE 40 MG TABLET PO SCH (07:45)
[2023-08-27] MEDS: DIGOXIN 0.125 MG TABLET PO SCH (07:45)
[2023-08-27] MEDS: allopurinoL 100 MG TAB PO SCH (07:45)
[2023-08-27] MEDS: [UNRECOGNIZED DRUG - OTHER] IH SCH (08:00)
[2023-08-27] MEDS: VILANTEROL IH SCH (08:00)
[2023-08-27] MEDS: FLUTICASONE FUROATE IH SCH (08:00)
[2023-08-27] MEDS: DULERA 200/5 (MOMETASONE/FORMOTEROL) INHALER IH SCH (08:00)
[2023-08-27] MEDS: UMECLIDINIUM IH SCH (08:00)
[2023-08-27] MEDS ORDERED: DOXYCYCLINE 100 MG CAP PO SCH (08:00)
[2023-08-27] MEDS: APIXABAN 2.5 MG TABLET PO SCH (20:00)
[2023-08-27] MEDS: ENSURE ENLIVE 237 ML CAN PO SCH (20:12)
--- NOTE | 2023-08-27 21:17 | HP ---
Date of Admission: 08/26/2023 Time Of Service: 5:00 p.m. Chief Complaint: "I became weak and needed exercise." History Of Present Illness: Mr. Mora is an 87-year-old, right-handed, patient with conges tive heart failure; atrial fibrillation, status post Watchman; COPD; hypertension; history of deep ve in thrombosis; and chronic anemia and over 5 years, received per the patient about 10 or 12 transfusi ons. Also, known to have an addition to ice chips. He was seen by Dr. Gallagher, his police or patrol park officer, in the emergency room at [place] due to shortness of breath and that is worsening with exertion. Foun d to have lower extremity edema and proximal weakness in the lower extremities. He at home who would use O2 1 L, but became significantly weak and fatigued and was found to have an elevated white blood cell count of 15,000, hemoglobin slightly low at 9.7. BNP elevated at 2542 with elevated troponin. He was otherwise in terms of blood work within normal limits. He had IV Lasix along with fluid rest riction to manage the CHF exacerbation. He did require IV iron and in the past has seen Dr. Wall. H ad a bone marrow study showing normal functioning bone marrow, but he has had to receive IV transfusi ons of iron as a result of potentially slow hemoglobin leak from the GI tract and poor iron absorptio n. While hospitalized, he did have COPD treated with the albuterol bronchodilator. He was evaluated by the physical therapy service and found to require contact guard to min assist for bed mobility, s it to stand, and to ambulate just 2 steps. He had been hospitalized at least 5 days with only once g etting out of bed. Prior Level Of Functioning: Independent in terms of mobilization household distances without difficu lty. He did require an increase up to 3 L of oxygen via nasal cannula while hospitalized and did hav e oxygen saturation in 80s without the oxygen. He received IV steroids along with antibiotics for hi s systemic infection. Did have episodes of tachycardia, heart rate about 108, respiratory rate up to 23. He also has mild hypokalemia and was addressed, elevated glucose of 283. His white count did g o down slightly to 14.1 and hemoglobin to 8.7. As a result of his changing medical issues and need f or rehabilitation, he is determined to be an appropriate candidate for inpatient rehabilitation and i s therefore admitted to the rehabilitation unit for physical, occupational and if need be speech ther apy to help him return towards his prior level of functioning to help prevent rehospitalization and t o help manage his medical conditions in an appropriate manner. Past Medical History: As noted above, chronic anemia; deep vein thrombosis history; hypertension; at rial fibrillation, status post Watchman; COPD; CHF exacerbation. Allergies: CLOPIDOGREL. Current Medications: Tylenol 500 mg every 4 hours as needed, allopurinol 100 mg daily, Eliquis 2.5 m g twice daily, Lipitor 10 mg at bedtime, digoxin 0.125 mg daily, ferrous sulfate 325 mg twice daily, Vibramycin 100 mg twice daily, gabapentin 600 mg twice daily, melatonin 3 mg at bedtime, Lopressor 50 mg twice daily, Hemocyte Plus 1 tablet daily, Ensure Enlive 237 mL twice daily, potassium 20 mEq lien ly, prednisolone 5 mg daily, Senokot S 2 at bedtime, Flomax 0.4 mg daily. Social History: The patient is a former smoker. Drinks alcohol occasionally. He said he was expose d to Agent [place] in [place]. Family History: Noncontributory. Past Surgical History: Watchman placement. He also had a Colon filter placement, left hip repl acement, and cardiac pacemaker placement. Review of Systems: He does report weakness, difficulty getting up and getting around and low oxygenation with some weakn ess and fatigue. Otherwise, he denies any fevers or chills, any nausea or vomiting. Admits to mild myalgias and arthralgias. No rash. No headache. No weight change. No psychiatric issues. No acti ve gastrointestinal or genitourinary issues. Physical Examination: Vital Signs: Blood pressure 111/56, pulse 72, respiratory rate of 16, temperature 97.1, oxygen satur ation 97% on room air. General: Mr. Mora is sitting on the side of his bed. He has oxygen by nasal cannula 2 L. HEENT: He is normocephalic, atraumatic. Sclerae anicteric. He does have hearing aids due to poor h earing. Oropharynx pink and moist. Neck: Supple. Chest: Decreased breath sounds. Abdomen: Soft. Extremities: Show trace edema bilaterally. Neurologic: He is alert and oriented to situation, place, person. Again, poor hearing. He follows commands appropriately. In terms of cranial nerve deficits, no obvious cranial nerve deficits. Kimberly r is 4+ weakness proximally in the upper and lower extremities and 5- distally, stronger in the dista l versus proximal upper and lower extremities. Stocking-glove loss, light touch temperature, depress ed reflexes. Laboratory Studies: White blood cell count 12.2, hemoglobin 8.4. It is noted that in February 06, he also had an hemoglobin of 8.4. His neutrophil count is 91.9, absolute neutrophil low at 0.3. Sodium 142, potassium 3.9, chloride 108, carbon dioxide 29, BUN 41, creatinine 1.2, glucose 115, calc ium 8.7. Magnesium 1.2. Albumin 2.4, prealbumin 15.5. Beta natriuretic peptide 2315. Urinalysis i s negative. Digoxin level is 1.10. Current Level Of Functioning: Currently, setup assistance for eating. Supervision for oral hygiene, toileting. Moderate assistance showering. Moderate assistance upper body dressing. Supervision, l ower body dressing. Moderate assistance donning and doffing footwear. Moderate assistance for rolli ng left to right. For sitting to lying and lying to sitting, he has contact guard assistance. Sit t o stand contact guard assistance. Transfer out of bed to wheelchair to toilet, moderate assistance. Ambulation moderate assistance with a rolling walker covering 1 foot. Rehabilitation And Medical Assessment And Plan: Mr. Mora is in the rehabilitation unit with impairm ent category 06, neurologic condition. His impairment group code is 03.8 neuromuscular disorder. 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 His comorbidities, atrial fibrillation, chronic anemia, bronchitis, coronary artery disease, chronic obstructive pulmonary disease, decreased mobili ty, decreased physical functioning, shortness of breath, mild lower extremity edema, hypertension, hy perglycemia, leukocytosis. Plan: He will have physical, occupational, and speech therapy if need be, 3.5 hours, 5 of 7 days. O therwise, we will continue with Tylenol for managing pain, allopurinol for gout, Eliquis for DVT prop hylaxis, Lipitor for dyslipidemia, Lanoxin for heart rate control along with beta monserrat and metopro lol. He will have Lasix for fluid management with potassium replacement, prednisone for his chronic obstructive pulmonary disease, Senokot S to decrease risk of constipation, Flomax for prostate hypert rophy. We will have Ensure Enlive, iron, and Hemocyte Plus for anemia and mild malnutrition. Comorbidities That Are Impacting His Rehabilitation: The patient has had as noted multiple episodes of blood transfusions. He did receive a transfusion prior to coming to the unit and as noted compare d to 2018, patient has also had chronically low hemoglobin and if need be and unit of blood will be t ransfused. At some point, the patient is set up to see GI to do an evaluation. He also has seen Dr. Wall in the Hematology/Oncology unit and may follow up there. Rehab Specific Plan: Mr. Mora will have physical, occupational, speech therapy if need be for 3.5 h ours, 7 days to improve his ability to transfer from bed to chair, to toilet, to shower to perform to ileting and showering; to be able to ambulate 250 feet with a rolling walker with independence; to be able to go up and down 10 steps with independence; and propel a wheelchair 250 feet with independenc e. He will have half-way for 24 hours a day, 7 days a week and physician evaluation on a daily ba sis along with social psychologist evaluation for discharge planning, home equipment, and continued thera py. Mr. Mora has a good understanding of the process of admission to the rehabilitation unit, how he emma l benefit from all of the disciplines of therapy. If need be additional help from the ID service, ca rdiology service, pulmonary service will be consulted. Given his complex medical condition, rehabili tation cannot be safely or effectively performed at the lower level facility such as half-way. Barriers To Discharge: He may require blood transfusions and given his chronically low hemoglobin, m ay have issues of significant fatigue and weakness and may potentially have to go to half-way; however, he is very motivated and will have hemoglobin and hematocrit followed carefully. Length Of Stay: About 10-12 days. Disposition: Home with Home Health. Prognosis: Good. Rehabilitation Specific Goals: 1.Become independent with upper and lower body dressing, toileting, showering, donning and doffing o f footwear. 2.Independently ambulate 250 feet with a rolling walker and right hand cane. 3.Independently propel a wheelchair 250 feet. 4.Independently go up and down 10 steps with bilateral handrails. 5.Independently perform all cognitive functioning including medication management, physician followu p, and safety awareness. 6.The above goals were reviewed with Mr. Mora, and he is in agreement. By signing this document, I acknowledge I personally performed a full physical examination on Mr. Lo joshua no later than 24 hours after his admission to the inpatient rehabilitation facility and determined that he is able to tolerate the above course of treatment at an intensive level for reasonable perio d of time. A detailed individualized plan of care for him will be completed by hospital day 4 based on the preadmission screen, history and physical, and therapy evaluations. JULIAN Voice ID: [id number]
[2023-08-28] MEDS: FE SULF/FA/VIT B COMP & C TAB PO SCH (08:37)
[2023-08-28] MEDS: prednisoLONE 15 MG/5 ML OSYR PO SCH (08:40)
[2023-08-28] MEDS: FERROUS SULFATE 325 MG TAB PO SCH (08:41)
--- NOTE | 2023-08-28 15:40 | RAD REPORT ---
EXAM DESCRIPTION: RAD - Chest Single View - 08/28/2023 3:20 pm CLINICAL HISTORY: history of CHF Chest pain. COMPARISON: Chest Single View dated 02/03/2018 FINDINGS: Portable technique limits examination quality. Hewp-iz-[id number] bilateral pulmonary opacities are present suggesting pulmonary edema. The heart is p rominent in size. Dual lead pacer device present. IMPRESSION: Mild to moderate CHF pattern.
[2023-08-28] MEDS: DOCUSATE NA/SENNA CONC 1 TAB PO PRN (20:17)
--- NOTE | 2023-08-29 00:22 | PN ---
Date of Progress Note: 08/28/2023 Time Of Service: 1:10 p.m. Subjective: Mr. Mora is sitting in a chair beside his bed looking out the window. He has no new co mplaints. Says he feels he is improving. He is actually enquiring about any possibility of pneumoni a in the chest and would like an x-ray. He does use the incentive spirometry, was able to get up to 1500 cc prior to coming in, and he did work with it once today. Objective: No fevers, chills, nausea, vomiting. Mild weakness of course of proximal lower extremiti es, reason why he is here, otherwise no significant edema in the lower extremities noted and good air movement, abdomen soft. Physical Examination: Vital Signs: Blood pressure 107/60, pulse 82, respiratory rate of 18, temperature 97.4, oxygen satur ation 98%. General: Again, Mr. Mora is sitting in a chair beside his bed. HEENT: He appears to be normocephalic, atraumatic. Sclerae anicteric. Oropharynx pink and moist. Neck: Supple. Chest: Good air movement. Abdomen: Obese, but nondistended. Extremities: Show no significant edema, cyanosis. Laboratory Studies: White blood cell count 12.2, hemoglobin 8.4, platelets 160. Sodium 142, potassi um 3.9, chloride 108, carbon dioxide 29, BUN 41, creatinine 1.2, glucose 115, calcium 8.7, magnesium 1.8. Beta-natriuretic peptide 2315, albumin 2.5. Prealbumin 15.5. Digoxin level is 1.1. X-ray/imaging: Chest x-ray done earlier today shows mild to moderate CHF pattern, heart prominent si ze, dual pacemaker leads present. Medications: As noted by chest x-ray, he has awgo-hr-[id number] CHF. He is on Lasix 40 mg twice daily . He will continue his gabapentin 600 mg twice daily, ferrous sulfate 325 mg daily, continuing Vibra mycin for his infection 100 mg twice daily to complete 10 doses from 08/25 to 08/30, Lanoxin 0.125 mg daily, Lipitor 10 mg at bedtime, Eliquis 2.5 mg twice daily. It is noted that the patient did not w ant to take the Eliquis. He wanted to not be on any anticoagulation. The risk of clots was discusse d with the patient and he will have SCDs while in bed and DARREN hose while out of bed. He is on allopu rinol 100 mg daily, Tylenol 500 mg every 4 hours, melatonin 3 mg at bedtime, Lopressor 50 mg twice da eb, Ensure Enlive 237 mL daily, potassium 20 mEq daily, prednisone 5 mg daily, Senokot-S 2 at bedtim e, Flomax 4 mg daily. Progress Made With Physical And Occupational Therapy: With physical therapy, ambulated 120 feet twic e with a rolling walker and minimum assistance. He did have a significant drop of his O2 to 65% duri ng the morning session. He did recover to 90% to 91% within 3 minutes with oxygen. Afternoon, his s aturation dropped to 76% with some recovery time. He did go up and down 10 steps with minimal assist ance. Oxygen dropped to 65%. Did require moderate assistance for stimulated car transfer. With occ upational therapy, toileting minimum assistance, bathing minimum assistance, did require O2 as noted. He could not breathe when bending over as he did have significant shortness of breath. Mr. Mora does have significant shortness of breath requiring oxygenation via nasal cannula at least 3 L. Saturation dropped significantly with exertion. We will likely have to give IV Lasix, he is cu rrently on 40 mg daily and we will see his urine output and monitor I's and O's and determine again m ore aggressive treatment as required to manage his CHF. Assessment: Mr. Mora is an 87-year-old patient in the rehabilitation unit with CHF myopathy. His c hest x-ray shows evlw-pc-oijmevaw CHF. He has significant shortness of breath with exertion consiste nt with his poor oxygenation. His comorbidities include atrial fibrillation, chronic anemia, chronic obstructive pulmonary disease, decreased mobility, decreased physical functioning, significant short ness of breath, hypertension, hyperglycemia, leukocytosis, and need for antibiotics. Plan: Continue with physical and occupational therapy for 3 hours a day, 5 of 7 days. Again, contin ue Lasix 40 mg twice daily. May give IV Lasix. Also continue with pressure support. Continue using DARREN hose and SCDs while in bed. It is noted that the patient refuses to take other forms of DVT pro phylaxis. He was advised of the risk of stroke and blood clots and pulmonary embolus, but still want s to not be on any medications for DVT prophylaxis. Continue with potassium replacement, prednisone for COPD, Senokot for constipation, Flomax for prostate hypertrophy. Continue with Ensure and iron s upplementation for his anemia and malnutrition. Comorbidities That Are Impacting Rehabilitation: Currently, his congestive heart failure and his dif ficulty with being able to sustain with oxygen levels with exertion is a limiting factor, we will hav e I's and O's, we will have repeat chest x-ray, and adjust Lasix dosage and Aldactone and spironolact one. LB/MODL Voice ID: [id number] Report ID: [id number]
[2023-08-29 04:30] LABS: Anion Gap 6.7 mEq/L (5.0-15.0); Potassium 3.7 mEq/L (3.5-5.1)
[2023-08-29 04:36] LABS: Absolute Eosinophils 0.1 K/uL (0-0.5); Absolute Lymphocytes (CBC) 0.8 K/uL (0.7-4.9); Absolute Monocytes 0.6 K/uL (0.1-1.3); Absolute Neutrophil 8.8 K/uL (1.8-8.0); Basophils % 0.1 % (0-1.3); Eosinophils % 0.8 % (0-4.4); Hematocrit 25.2 % (39.6-49.0); Hemoglobin 8.5 g/dL (13.6-17.9); Lymphocytes % 7.8 % (15.3-44.8); MCH 33.3 pg (27.0-35.0); MCHC 33.6 g/dL (32.0-36.0); MCV 99.3 fL (80-100); MPV 8.1 fL (7.6-11.3); Monocytes % 6.2 % (3.3-12.3); Nucleated RBC Absolute Count 0.1 (0-0); Nucleated Red Blood Cells % 0.5 % (0-0); Platelets 173 thou/uL (152-406); RBC Red Blood Cell Count 2.54 M/uL (4.33-5.43); Red Cell Distribution Width 17.9 % (12.1-15.2)
[2023-08-29 04:37] LABS: Neutrophils % 85.1 % (41.7-73.7)
[2023-08-29] MEDS: FLUTICASONE IH SCH (08:39)
[2023-08-29] MEDS: VILANTER IH SCH (08:39)
[2023-08-29] MEDS: UMECLIDIN IH SCH (08:39)
[2023-08-29] MEDS ORDERED: METOPROLOL TAR 50 MG TAB PO SCH (20:00)
[2023-08-29] MEDS: METOPROLOL TAR 25 MG TAB PO SCH (20:00)
[2023-08-30 04:38] LABS: Absolute Eosinophils 0.1 K/uL (0-0.5); Absolute Lymphocytes (CBC) 0.8 K/uL (0.7-4.9); Absolute Monocytes 0.6 K/uL (0.1-1.3); Absolute Neutrophil 7.8 K/uL (1.8-8.0); Basophils % 0.3 % (0-1.3); Eosinophils % 1.4 % (0-4.4); Hematocrit 25.2 % (39.6-49.0); Hemoglobin 8.5 g/dL (13.6-17.9); Lymphocytes % 8.3 % (15.3-44.8); MCH 33.4 pg (27.0-35.0); MCHC 33.7 g/dL (32.0-36.0); Monocytes % 6.2 % (3.3-12.3); Nucleated Red Blood Cells % 0.3 % (0-0); Platelets 180 thou/uL (152-406); RBC Red Blood Cell Count 2.55 M/uL (4.33-5.43); Red Cell Distribution Width 17.7 % (12.1-15.2)
[2023-08-30 04:46] LABS: Neutrophils % 83.8 % (41.7-73.7)
--- NOTE | 2023-08-30 20:23 | PN ---
Date of Progress Note: 08/30/2023 Time Of Service: 1:15 p.m. Subjective: Mr. Mora is sitting in a chair looking out the window. He is very happy with his thera py so far. He is ambulating better. He still has significant shortness of breath requiring high chilo unts of oxygen flow to maintain saturation as he fatigues very easily, likely related to his CHF and CHF myopathy. Objective: No fevers, chills. No nausea, vomiting, myalgias, arthralgias. No rash, headache, weigh t change. No psychiatric issues. Physical Examination: Vital Signs: Blood pressure 102/64, pulse of 74, respiratory rate of 16, temperature 97.2, O2 satura tion 94%. General: Mr. Mora again sitting in a chair. He is in no acute distress. HEENT: He is normocephalic, atraumatic. Sclerae anicteric. Oropharynx pink and moist. Neck: Full range of motion. Chest: Slightly decreased breath sounds. Abdomen: Slightly obese, but not distended. Extremities: Mild edema noted in the lower extremities, but that is not very significant at this poi nt. Laboratory Studies: White blood cell count 9.3, hemoglobin 8.5, platelets 180. Sodium 139, potassiu m 3.7, chloride 105, carbon dioxide 31, BUN 46, creatinine 1.18, glucose 91, calcium 8.9. X-ray/imaging: No new x-rays or imaging. Medications: Medications have been reviewed and are unchanged except he is on prednisone 5 mg daily and continues other medications including Vibramycin, Eliquis, allopurinol, Tylenol, Lipitor, Lanoxin , ferrous sulfate, Lasix, gabapentin, melatonin, Lopressor, Hemocyte Plus, Senokot-S, Flomax, and pot assium replacement along with Ensure Enlive nutritional supplement. Progress Made With Physical And Occupational Therapy: Today, with physical therapy, he ambulated 125 feet twice with a rolling walker and then another 170 feet twice with contact guard assistance. He is able to go up and down 15 steps with bilateral handrails with standby assistance. Cil-rh-gmevi tr ansfers done with contact guard assistance, multiple tqsuuj-za-xor transfers also with contact guard assistance. With occupational therapy, independent with hku-ya-ityat transfers, ambulated within the room with a rolling walker with independence on 3 L of oxygen, saturations did go down to 83%, but i mproved to 93% within 2 minutes of some deep breathing. Again, he is prone to significant drops in o xygenation, but that has improved as he breathes with 2 L of oxygen via nasal cannula and maybe up to 2-1/2 L as well. Mr. Mora is making fairly good progress with his physical and occupational therapy. Assessment: Mr. Mora is an 87-year-old patient in the rehabilitation unit with CHF myopathy, from [facility] he is recovering, although still somewhat challenged by shortness of breath. There is atrial fi brillation, chronic anemia, chronic obstructive pulmonary disease, decreased mobility, decreased phys ical functioning, hyperglycemia, hypertension, leukocytosis. He is on antibiotics. Plan: 1.Continue with physical and occupational therapy for 3 hours a day, 5 of 7 days. 2.His comorbid conditions which have been listed are managed by continuing medications. Again, thos e are noted. He does have medication for malnutrition, DVT prophylaxis, hypertension, and electrolyt e replacement. Comorbidities That Are Impacting Rehabilitation: He is significantly limited by his shortness of daryl ath related to CHF, and he is making improvements. He is using incentive spirometry and has diuretic s on board. He is beginning to walk longer distances with less fatigue. He still has desaturation and will likely need oxygen to continue at the hospital, at home, and when mobilizing. ARCENIO/MODL Voice ID: [id number] Report ID: [id number]
[2023-08-31 04:02] LABS: Absolute Eosinophils 0.2 K/uL (0-0.5); Absolute Lymphocytes (CBC) 0.8 K/uL (0.7-4.9); Absolute Monocytes 0.6 K/uL (0.1-1.3); Absolute Neutrophil 6.5 K/uL (1.8-8.0); Basophils % 0.4 % (0-1.3); Eosinophils % 2.9 % (0-4.4); Hemoglobin 8.5 g/dL (13.6-17.9); Lymphocytes % 9.5 % (15.3-44.8); MCH 33.4 pg (27.0-35.0); MCHC 33.9 g/dL (32.0-36.0); MCV 98.5 fL (80-100); Monocytes % 6.9 % (3.3-12.3); Neutrophils % 80.3 % (41.7-73.7); Nucleated Red Blood Cells % 0.2 % (0-0); Platelets 172 thou/uL (152-406); RBC Red Blood Cell Count 2.54 M/uL (4.33-5.43); Red Cell Distribution Width 17.5 % (12.1-15.2)
[2023-08-31 04:16] LABS: Albumin 2.3 g/dL (3.4-5.0); Anion Gap 6.9 mEq/L (5.0-15.0); Magnesium 1.8 mg/dL (1.6-2.4); Potassium 3.9 mEq/L (3.5-5.1); Prealbumin 12.8 mg/dL (20-40)
[2023-08-31 05:25] LABS: Band Neutrophils 12 % (0-1); Blood Morphology Comment NOTED (NOT SEEN); Differential Total Cells Count 100; Eosinophils 3 % (0-3); Lymphocytes 10 % (15-42); Monocytes 3 % (0-10); Platelet Estimate ADEQ; Polychromasia 1+; Segmented Neutrophils 72 % (40-80); Teardrop Cell 1+
[2023-08-31] MEDS: predniSONE 5 MG TAB PO SCH (08:50)
[2023-08-31] MEDS: MELATONIN 3 MG TABLET PO PRN (20:29)
[2023-08-31 21:20] VITALS: O2SAT 94
--- NOTE | 2023-08-31 23:46 | PN ---
Date of Progress Note: 08/31/2023 Time Of Service: 1:10 p.m. Subjective: Mr. Mora is sitting in a chair, looking out the window in his room in between therapy s essions. He has no new complaints. He is very happy with his therapy. He did have less shortness o f breath with his exercise and his oxygen saturation did improve with therapy and he is working hard with incentive spirometry. Review of Systems: He denies any fevers, chills. No nausea, vomiting. No significant myalgias, arthralgias, or rash. No psychiatric complaints. Physical Examination: Vital Signs: Blood pressure 118/57, pulse 82, respiratory rate of 18, temperature 97.2, oxygen satur ation 97%. General: Mr. Mora is sitting with oxygen 2 L via nasal cannula. He is in no acute distress. HEENT: He is normocephalic, atraumatic. Sclerae anicteric. Oropharynx pink and moist. Neck: Supple. Chest: Mild decreased breath sounds. Abdomen: Soft. Extremities: No significant edema, cyanosis, or clubbing. Medications: His medications have been reviewed and remain unchanged. Laboratory Studies: White blood cell count 8.1, hemoglobin 8.5, platelets 172. Sodium 142, potassiu m 3.9, chloride 106, carbon dioxide 33, BUN 40, creatinine 1.15. Prealbumin did go down from 15.5 to 12.8, albumin did decrease from 2.5 to 2.3. He is on Ensure Enlive 237 mL twice daily, may increase to 3 times daily. X-ray/imaging: No new x-rays or imaging. Progress Made With Physical And Occupational Therapy: Today with physical therapy, he ambulated 175 feet with supervision with a rolling walker. He did require 3 L of oxygen. He also ambulated 10 fee t without an assistive device and did so independently. To[facility], qhlqn-vc-gkcei transfer done independently. He was independent with ehl-eb-nddeo transfers, amb ulated from room to gym in a wheelchair with 2 rest breaks. He did have 2 L of oxygen at that point with oxygen saturation of 86% and increased with deep breathing to 92% within 3 minutes, stood in the room, used the urinal independently. Mr. Mora is making good progress with his CHF exacerbation and ambulating better, requiring less oxy gen, but still needing oxygen to maintain good saturation. Assessment: Mr. Mora is an 87-year-old patient in the rehabilitation unit with CHF. His ability to ambulate is improving. He has less shortness of breath. He has atrial fibrillation, chronic anemia , moderate malnutrition, chronic obstructive pulmonary disease, decreased mobility, decreased physica l functioning, hyperglycemia, hypertension, leukocytosis, and is completing antibiotics. Plan: 1.Continue with physical and occupational therapy for 3 hours a day, 5 of 7 days. 2.All medications as noted above were continued for his comorbid conditions. Comorbidities That Are Impacting Rehabilitation: His of course biggest issue is the shortness of daryl ath with exertion and he is working hard to improve that and should continue even after discharge. ARCENIO/SUSIL Voice ID: [id number] Report ID: [id number]
[2023-09-01 03:43] LABS: Absolute Eosinophils 0.2 K/uL (0-0.5); Absolute Lymphocytes (CBC) 0.7 K/uL (0.7-4.9); Absolute Monocytes 0.6 K/uL (0.1-1.3); Absolute Neutrophil 7.3 K/uL (1.8-8.0); Basophils % 0.2 % (0-1.3); Eosinophils % 2.1 % (0-4.4); Hematocrit 25.3 % (39.6-49.0); Hemoglobin 8.6 g/dL (13.6-17.9); Lymphocytes % 8.2 % (15.3-44.8); MCH 33.3 pg (27.0-35.0); MCV 98.2 fL (80-100); MPV 7.9 fL (7.6-11.3); Monocytes % 7.1 % (3.3-12.3); Neutrophils % 82.4 % (41.7-73.7); Nucleated Red Blood Cells % 0.3 % (0-0); Platelets 176 thou/uL (152-406); RBC Red Blood Cell Count 2.58 M/uL (4.33-5.43); Red Cell Distribution Width 17.6 % (12.1-15.2)
--- NOTE | 2023-09-01 13:39 | P.RH.PN ---
Estimated Length of Stay: 11 Expected Discharge Date: 09/02/23 Discharge Disposition Plan: Home Family Support: Yes Long-Term Goal: Mobility, Transfers, Self Care Vital Signs: Last Vital Signs Temp 96.9 F 09/01/23 07:06 Pulse 72 09/01/23 08:02 Resp 20 09/01/23 07:06 BP 107/64 09/01/23 08:02 Pulse Ox 92 09/01/23 07:06 Laboratory: Laboratory Last Values WBC 8.90 thou/uL (4.3-10.9) 09/01/23 03:10 RBC 2.58 M/uL (4.33-5.43) L 09/01/23 03:10 Hgb 8.6 g/dL (13.6-17.9) L 09/01/23 03:10 Hct 25.3 % (39.6-49.0) L 09/01/23 03:10 MCV 98.2 fL (80-100) 09/01/23 03:10 MCH 33.3 pg (27.0-35.0) 09/01/23 03:10 MCHC 34.0 g/dL (32.0-36.0) 09/01/23 03:10 RDW 17.6 % (12.1-15.2) H 09/01/23 03:10 Plt Count 176 thou/uL (152-406) 09/01/23 03:10 MPV 7.9 fL (7.6-11.3) 09/01/23 03:10 Neutrophils % 82.4 % (41.7-73.7) H 09/01/23 03:10 Lymphocytes % 8.2 % (15.3-44.8) L 09/01/23 03:10 Monocytes % 7.1 % (3.3-12.3) 09/01/23 03:10 Eosinophils % 2.1 % (0-4.4) 09/01/23 03:10 Basophils % 0.2 % (0-1.3) 09/01/23 03:10 Absolute Neutrophils 7.3 K/uL (1.8-8.0) 09/01/23 03:10 Segmented Neutrophils 72 % (40-80) 08/31/23 03:40 Band Neutrophils 12 % (0-1) H 08/31/23 03:40 Absolute Lymphocytes 0.7 K/uL (0.7-4.9) 09/01/23 03:10 Lymphocytes 10 % (15-42) L 08/31/23 03:40 Monocytes 3 % (0-10) 08/31/23 03:40 Absolute Monocytes 0.6 K/uL (0.1-1.3) 09/01/23 03:10 Eosinophils 3 % (0-3) 08/31/23 03:40 Absolute Eosinophils 0.2 K/uL (0-0.5) 09/01/23 03:10 Absolute Basophils 0.0 K/uL (0-0.5) 09/01/23 03:10 Platelet Estimate Adeq 08/31/23 03:40 Polychromasia 1+ 08/31/23 03:40 Hypochromasia 1+ 08/27/23 05:25 Poikilocytosis 1+ 08/27/23 05:25 Anisocytosis 1+ 08/27/23 05:25 Tear Drop Cells 1+ 08/31/23 03:40 Morphology Comment Noted (NOT SEEN) 08/31/23 03:40 Sodium 142 mEq/L (136-145) 08/31/23 03:40 Potassium 3.9 mEq/L (3.5-5.1) 08/31/23 03:40 Chloride 106 mEq/L (98-107) 08/31/23 03:40 Carbon Dioxide 33 mEq/L (21-32) H 08/31/23 03:40 Anion Gap 6.9 mEq/L (5.0-15.0) 08/31/23 03:40 BUN 40 mg/dL (7-18) H 08/31/23 03:40 Creatinine 1.15 mg/dL (0.70-1.30) 08/31/23 03:40 Est GFR (CKD-EPI) 61 ml/min (=/>90) L 08/31/23 03:40 Glucose 89 mg/dL (74-106) 08/31/23 03:40 Calcium 8.5 mg/dL (8.5-10.1) 08/31/23 03:40 Magnesium 1.8 mg/dL (1.6-2.4) 08/31/23 03:40 NT-Pro-B Natriuret Pep 2315 pg/mL (<450) H 08/27/23 05:25 Albumin 2.3 g/dL (3.4-5.0) L 08/31/23 03:40 Prealbumin 12.8 mg/dL (20-40) L 08/31/23 03:40 Urine Color Cancelled 08/26/23 20:10 Urine Color Light-yellow (Yellow) 08/26/23 20:10 Urine Clarity Cancelled 08/26/23 20:10 Urine Clarity Clear (Clear) 08/26/23 20:10 Urine pH 5.5 (5.0-7.0) 08/26/23 20:10 Urine pH Cancelled 08/26/23 20:10 Ur Specific Sigourney 1.012 (1.005-1.030) 08/26/23 20:10 Ur Specific Sigourney Cancelled 08/26/23 20:10 Glucose (UA)(Auto) Cancelled 08/26/23 20:10 Glucose (UA)(Auto) Negative (Negative) 08/26/23 20:10 Urine Ketones Cancelled 08/26/23 20:10 Urine Ketones Negative (Negative) 08/26/23 20:10 Urine Blood Cancelled 08/26/23 20:10 Urine Blood Negative (Negative) 08/26/23 20:10 Urine Nitrite Cancelled 08/26/23 20:10 Urine Nitrite Negative (Negative) 08/26/23 20:10 Urine Bilirubin Cancelled 08/26/23 20:10 Urine Bilirubin Negative (Negative) 08/26/23 20:10 Urine Urobilinogen Cancelled 08/26/23 20:10 Urine Urobilinogen Normal (Normal) 08/26/23 20:10 Ur Leukocyte Esterase Cancelled 08/26/23 20:10 Ur Leukocyte Esterase Negative Marya/uL (Negative) 08/26/23 20:10 Urine RBC Cancelled 08/26/23 20:10 Urine Red Cell Clumps Cancelled 08/26/23 20:10 Urine WBC Cancelled 08/26/23 20:10 Urine WBC Clumps Cancelled 08/26/23 20:10 Ur Squamous Epith Cells Cancelled 08/26/23 20:10 U Non-Squamous Epi Cells Cancelled 08/26/23 20:10 Ur Transition Epith Cell Cancelled 08/26/23 20:10 Ur Renal Epithelial Cell Cancelled 08/26/23 20:10 Calcium Carbonate Cryst Cancelled 08/26/23 20:10 Calcium Oxalate Crystal Cancelled 08/26/23 20:10 Leucine Crystals Cancelled 08/26/23 20:10 Cystine Crystals Cancelled 08/26/23 20:10 Uric Acid Crystals Cancelled 08/26/23 20:10 Triple Phos Crystals Cancelled 08/26/23 20:10 Tyrosine Crystals Cancelled 08/26/23 20:10 Unidentified Crystals Cancelled 08/26/23 20:10 Amorphous Crystals Cancelled 08/26/23 20:10 Urine Bacteria Cancelled 08/26/23 20:10 Hyaline Casts Cancelled 08/26/23 20:10 Granular Casts Cancelled 08/26/23 20:10 Waxy Casts Cancelled 08/26/23 20:10 RBC Casts Cancelled 08/26/23 20:10 WBC Casts Cancelled 08/26/23 20:10 Urine Mucus Cancelled 08/26/23 20:10 Urine Trichomonas Cancelled 08/26/23 20:10 Ur Yeast w Hyphae Cancelled 08/26/23 20:10 Urine Yeast (Budding) Cancelled 08/26/23 20:10 Urine Sperm Cancelled 08/26/23 20:10 Ur Oval Fat Bodies Cancelled 08/26/23 20:10 Urine Culture Reflexed Cancelled 08/26/23 20:10 Urine Total Protein Cancelled 08/26/23 20:10 Urine Total Protein Negative (Negative) 08/26/23 20:10 Urine Ascorbic Acid Cancelled 08/26/23 20:10 Urine Fat Cancelled 08/26/23 20:10 Digoxin 1.10 ng/mL (0.80-2.00) 08/27/23 05:25 Smear Scan Ok (OK) 08/27/23 05:25 Weight: 167 lb 4.8 oz Wound Present: No Closed Surgical Incision Present: No Negative Pressure Wound Therapy Present: No Physician Update: Labs reviewed and are stable with low Hgb, prealbumin 12.8. Still has moderate SOB with decreased O2 with exertion. Walking 150' with RW and in room without an assistive device. Supervision to modified independent with all ADLs. Summary: Patient's care plan and detention goals have been reviewed and revised as necessary. Please see the Rehabilitation Signature page for all necessary signatures.
[2023-09-02 06:34] VITALS: BP 103/59; TEMP 97
[2023-09-02 07:33] LABS: Absolute Basophils 0.1 K/uL (0-0.5); Absolute Eosinophils 0.2 K/uL (0-0.5); Absolute Lymphocytes (CBC) 0.7 K/uL (0.7-4.9); Absolute Monocytes 0.8 K/uL (0.1-1.3); Absolute Neutrophil 7.3 K/uL (1.8-8.0); Basophils % 0.7 % (0-1.3); Eosinophils % 1.8 % (0-4.4); Hematocrit 27.8 % (39.6-49.0); Hemoglobin 9.1 g/dL (13.6-17.9); Lymphocytes % 7.7 % (15.3-44.8); MCH 32.5 pg (27.0-35.0); MCHC 32.9 g/dL (32.0-36.0); MPV 7.9 fL (7.6-11.3); Monocytes % 8.7 % (3.3-12.3); Neutrophils % 81.1 % (41.7-73.7); Nucleated Red Blood Cells % 0.1 % (0-0); Platelets 184 thou/uL (152-406); RBC Red Blood Cell Count 2.81 M/uL (4.33-5.43); Red Cell Distribution Width 17.5 % (12.1-15.2)
== END 2023-09-02 11:20 | disposition home health service (06) | DRG 92 ==
LOC: 5TH 19:13
PROVIDERS: ADMIT Psychiatry & Neurology Neurology with Special Qualifications in Child Neurology; ATTEND Psychiatry & Neurology Neurology with Special Qualifications in Child Neurology
DX: G72.89 Other specified myopathies (principal); E44.0 Moderate protein-calorie malnutrition; I48.91 Unspecified atrial fibrillation; D64.9 Anemia, unspecified; J40 Bronchitis, not specified as acute or chronic; I25.10 Atherosclerotic heart disease of native coronary artery without angina pectoris; J44.9 Chronic obstructive pulmonary disease, unspecified; I10 Essential (primary) hypertension; R73.9 Hyperglycemia, unspecified; I50.9 Heart failure, unspecified; N40.0 Benign prostatic hyperplasia without lower urinary tract symptoms; Z96.642 Presence of left artificial hip joint; Z86.718 Personal history of other venous thrombosis and embolism; Z95.0 Presence of cardiac pacemaker; Z68.23 Body mass index [BMI] 23.0-23.9, adult; Z87.891 Personal history of nicotine dependence; R60.0 Localized edema
CPT/HCPCS: 36415; 71045; 80048; 80162; 81003; 82040; 83735; 83880; 84134; 85025; 87086; 87088; 97110; 97112; 97116; 97163; 97165; 97530; 97542; J3535; J7510; J7512

== ENCOUNTER 2024-07-01 11:01 | Inpatient (IN) | payer OTHER ==
[2024-07-01] MEDS ORDERED: ALBUTEROL 2.5 MG/3 ML NEB SOL ONE ×2 (11:31→14:21)
[2024-07-01] MEDS ORDERED: METHYLPREDNISOLONE 125 MG INJ ONE (11:31)
[2024-07-01] MEDS ORDERED: IPRATROPIUM BROM 0.5MG/2.5ML ONE (11:31)
[2024-07-01 11:43] LABS: Absolute Lymphocytes (CBC) 0.2 K/uL (0.7-4.9); Absolute Monocytes 0.5 K/uL (0.1-1.3); Hematocrit 33.4 % (39.6-49.0); Hemoglobin 11.1 g/dL (13.6-17.9); Lymphocytes % 1.7 % (15.3-44.8); MCH 33.9 pg (27.0-35.0); MCHC 33.4 g/dL (32.0-36.0); MCV 101.5 fL (80-100); MPV 8.3 fL (7.6-11.3); Monocytes % 3.7 % (3.3-12.3); Neutrophils % 94.6 % (41.7-73.7); Nucleated Red Blood Cells % 0.2 % (0-0); Platelets 138 thou/uL (152-406); RBC Red Blood Cell Count 3.29 M/uL (4.33-5.43)
[2024-07-01 11:47] LABS: PT Prothrombin Time 14.2 SECONDS (10.0-13.0); PTT, Activated Partial Thromb 29.6 SECONDS (24.3-36.9); Protime INR 1.26
[2024-07-01 11:56] LABS: Albumin 2.8 g/dL (3.4-5.0); Albumin/Globulin Ratio 0.6 (1.1-1.8); Globulin 4.9 g/dL (2.3-3.5); Protein, Total 7.7 g/dL (6.4-8.2)
--- NOTE | 2024-07-01 12:00 | RAD REPORT ---
EXAMINATION: ONE VIEW CHEST XR CLINICAL INDICATION: COUGH TECHNIQUE: Frontal chest projection is submitted. Examination is limited by patient positioning and t echnique. 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 Ill-defined opacity in the left base and right upper l obe likely related to infiltrate/pneumonia. The heart is upper limit of normal in size. Dual lead pacer device. Chondroid lesion proximal right humerus is unchanged. IMPRESSION: Areas of mild infiltrate suspected left lung base and right upper lobe. Follow-up imaging until clear is recommended.
--- NOTE | 2024-07-01 12:09 | ER ---
Nurse's Notes [facility] Name: Ruy Mora Age: 88 yrs Sex: Male : 1935 Arrival Date: 07/01/2024 Time: 11:01 Bed 5 Private MD: Diagnosis: Sepsis, unspecified organism;Unspecified bacterial pneumonia Presentation: 07/01 11:02 Chief complaint: Patient states: hx of COPD and c/o increased SOB. 77% upon triage via aa5 4L NC home O2. 11:02 Coronavirus screen: shortness of breath. Ebola Screen: Patient denies travel to an [facility] Ebola-affected area in the 21 days before illness onset. Initial Sepsis Screen: Does the patient meet any 2 criteria? RR > 20 per min. HR > 90 bpm. Does the patient have a suspected source of infection? No. Patient's initial sepsis screen is negative. Risk Assessment: Do you want to hurt yourself or someone else? Patient reports no desire to harm self or others. Onset of symptoms was June 2024. 11:02 Acuity: LUTHER 2 aa5 11:02 Method Of Arrival: Wheelchair aa5 Historical: - Allergies: 11:05 Plavix; ll1 - PMHx: 11:05 CAD; CHF; High Cholesterol; COPD; Hypertension; Atrial Fib; Home O2 as needed; GI Bleed;ll1 - Immunization history:: Adult Immunizations. - Infectious Disease History:: Denies. - Social history:: Smoking status: Patient denies any tobacco usage or history of. Screenin:55 [facility] ED Fall Risk Assessment (Adult) History of falling in the last 3 months, ll1 including since admission No falls in past 3 months (0 pts) Confusion or Disorientation No (0 pts) Intoxicated or Sedated No (0 pts) Impaired Gait Yes (1 pt) Mobility Assist Device Used No (0 pt) Altered Elimination No (0 pt) Score/Fall Risk Level 0 - 2 = Low Risk Maintained a safe environment, Hourly rounding (assess needs \T\ fall precautionary measures) done. Abuse screen: Denies threats or abuse. Nutritional screening: No deficits noted. Tuberculosis screening: No symptoms or risk factors identified. Assessment: 11:15 General: Appears distressed, uncomfortable, Behavior is calm, cooperative, appropriate ll1 for age, Reports fatigue for. Pain: Denies pain. Respiratory: Reports shortness of breath on exertion labored breathing. 11:45 Reassessment: No changes from previously documented assessment. Patient and/or family ll1 updated on plan of care and expected duration. Pain level reassessed. Patient is alert, oriented x 3, equal unlabored respirations, skin warm/dry/pink. 12:56 Reassessment: No changes from previously documented assessment. Patient and/or family ll1 updated on plan of care and expected duration. Pain level reassessed. Patient is alert, oriented x 3, equal unlabored respirations, skin warm/dry/pink. 14:37 Reassessment: No changes from previously documented assessment. Patient and/or family ll1 updated on plan of care and expected duration. Pain level reassessed. Vital Signs: 11:02 BP 122 / 90; Pulse 97; Resp 32 S; Temp 97.8(TE); Pulse Ox 77% on 4 lpm NC; aa5 11:02 Pulse Ox 87% on 5 lpm NC; aa5 12:37 BP 117 / 65; Pulse 75; ss 12:55 BP 117 / 69; Pulse 73; Resp 21; Pulse Ox 93% on 2 lpm NC; ll1 14:36 BP 121 / 83; Pulse 76; Resp 21; Pulse Ox 93% on 2 lpm NC; ll1 15:09 BP 114 / 71; Pulse 72; Resp 20; Pulse Ox 96% on 2 lpm NC; ss ED Course: 11:02 Patient arrived in ED. al6 11:05 Karlene Garcia, ANDREI is Primary Nurse. ll1 11:05 Arm band placed on Patient placed in an exam room, on a stretcher. ll1 11:11 Niko Vega MD is Attending Physician. ec2 11:15 Triage completed. aa5 11:15 Patient has correct armband on for positive identification. Provided Education on: ER ll1 procedures and process. 11:15 Initial lab(s) drawn, by me, sent to lab. First set of blood cultures drawn. Inserted ll1 saline lock: 22 gauge in right antecubital area, using aseptic technique. Blood collected. Flushed with 10 mL NS. 11:45 Second set of blood cultures drawn. ll1 11:55 Chest Single View XRAY In Process Unspecified. EDMS 12:09 Kaushik Vital is Hospitalizing Provider. ec2 14:55 No provider procedures requiring assistance completed. Patient did not have IV access ll1 during this emergency room visit. Administered Medications: 11:41 Drug: MethylPrednisoLONE IVP 125 mg IVP once Route: IVP; Site: right antecubital; ll1 12:54 Follow up: Response: No adverse reaction ll1 11:41 Drug: DuoNeb Nebulize (3:1) (2.5 mg - 0.5 mg) 3 ml Nebulizer once Route: Nebulizer; ll1 12:54 Follow up: Response: No adverse reaction ll1 12:40 Drug: Rocephin IV 1 grams IV at calculated rate once; Given slow IV push per pharmacy ll1 instructions Route: IV; Rate: calculated rate; Site: right antecubital; 12:54 Follow up: Response: No adverse reaction; IV Status: Completed infusion; IV Intake: [id number] 12:43 Drug: NS 0.9% IV 1000 ml IV at 1000 ml once; to be given as a bolus over 60 minutes ll1 Route: IV; Rate: 1000 ml; Site: right antecubital; 14:37 Follow up: Response: No adverse reaction; IV Status: Completed infusion; IV Intake: ll1 1000ml 12:55 Drug: AZITHromycin IVPB 500 mg IVPB once over 1 hrs; (mix in 250 mL NS) Route: IVPB; ll1 Infused Over: 1 hrs; Site: right antecubital; 14:38 Follow up: Response: No adverse reaction; IV Status: Completed infusion; IV Intake: [id number] Medication: 14:55 VIS not applicable for this client. ll1 Intake: 12:54 IV: 20ml; Total: 20ml. ll1 14:37 IV: 1000ml; Total: 1020ml. ll1 14:38 IV: 10ml; Total: 1030ml. ll1 Outcome: 12:09 Decision to Hospitalize by Provider. ec2 14:55 Admitted to Med/surg accompanied by tech, via wheelchair, room room 230, ll1 14:55 Condition: stable 14:55 Instructed on the need for admit, 15:24 Patient left the ED. aa5 Signatures: Dispatcher [facility] Rose Kline RN RN aa5 Nohemi Marina RN RN ss Lewis, Lynsay, RN RN ll1 Niko Vega MD MD ec2 Veronica Mace al6
--- NOTE | 2024-07-01 12:09 | EDPHYS ---
Physician Documentation [facility] Name: Ruy Mora Age: 88 yrs Sex: Male : 1935 Arrival Date: 07/01/2024 Time: 11:01 Bed 5 Private MD: ED Physician Niko Vega HPI: 07/01 11:18 This 88 yrs old Male presents to ER via Wheelchair with complaints of ec2 Shortness Of Breath. 11:18 Patient with history of CHF, COPD, arrives today for progressive shortness of breath. ec2 Patient with occasional cough. Has baseline lower extremity edema. No vomiting, no diarrhea. Denies any chest pain. Patient is on baseline 3 L oxygen.. Historical: - Allergies: 11:05 Plavix; ll1 - PMHx: 11:05 CAD; CHF; High Cholesterol; COPD; Hypertension; Atrial Fib; Home O2 as needed; GI Bleed;ll1 - Immunization history:: Adult Immunizations. - Infectious Disease History:: Denies. - Social history:: Smoking status: Patient denies any tobacco usage or history of. ROS: 11:19 Constitutional: as per hpi ec2 Exam: 11:19 Constitutional: GEN: NAD Head: atraumatic Eyes: EOMI Ears: External ears are ec2 normal. CV: regular rate, trace lower extremity edema. LUNGS: Tachypnea noted, no marked respiratory distress appreciated. No audible wheezing appreciated. ABD: non-distended SKIN: no evidence of rashes MSK: no evidence of trauma Vital Signs: 11:02 BP 122 / 90; Pulse 97; Resp 32 S; Temp 97.8(TE); Pulse Ox 77% on 4 lpm NC; aa5 11:02 Pulse Ox 87% on 5 lpm NC; aa5 12:37 BP 117 / 65; Pulse 75; ss 12:55 BP 117 / 69; Pulse 73; Resp 21; Pulse Ox 93% on 2 lpm NC; ll1 14:36 BP 121 / 83; Pulse 76; Resp 21; Pulse Ox 93% on 2 lpm NC; ll1 15:09 BP 114 / 71; Pulse 72; Resp 20; Pulse Ox 96% on 2 lpm NC; ss MDM: 11:12 Medical Screening Exam initiated ec2 11:19 Data reviewed: vital signs, nurses notes. ED course: Patient arrives today for ec2 evaluation of shortness of breath. Examination is revealing for cardiopulmonary findings as above. Will obtain lab work, EKG, chest x-ray.. 11:20 ED course: EKG independently reviewed and interpreted by me, shows significant motion ec2 artifact, normal sinus rhythm with a rate of 102, no acute ST segment elevations appreciated.. 12:07 ED course: Patient with pneumonia evident on chest x-ray. BNP elevated at 4400. Slight ec2 lactic acid elevation at 2.5. Given the trace lower extremity edema as well as history of CHF, will give the patient 1 L crystalloid bolus as I am concerned about precipitating worsening respiratory symptoms. Will admit for sepsis secondary to pneumonia, volume overload as well.. 12:53 ED course: Sepsis reassessment complete.. ec2 07/01 11:17 Order name: Blood Culture Adult (2) ec2 07/01 11:17 Order name: CBC with Diff ec2 07/01 11:17 Order name: CMP; Complete Time: 12:05 ec2 07/01 11:17 Order name: Lactate w/ 2H reflex if indic.; Complete Time: 12:05 ec2 07/01 11:17 Order name: Protime (+inr); Complete Time: 12:05 ec2 07/01 11:17 Order name: Ptt, Activated; Complete Time: 12:05 ec2 07/01 11:17 Order name: BNP; Complete Time: 12:05 ec2 07/01 11:52 Order name: CBC Smear Scan [facility] 07/01 12:05 Order name: Ghost Lactate-NO COLLECT Timer [facility] 07/01 12:58 Order name: Urinalysis w/ reflexes [facility] 07/01 12:58 Order name: Basic Metabolic Panel [facility] 07/01 12:58 Order name: Basic Metabolic Panel [facility] 07/01 12:58 Order name: Basic Metabolic Panel [facility] 07/01 12:58 Order name: Basic Metabolic Panel [facility] 07/01 12:58 Order name: Basic Metabolic Panel [facility] 07/01 12:58 Order name: Basic Metabolic Panel [facility] 07/01 12:58 Order name: Basic Metabolic Panel [facility] 07/01 12:58 Order name: Basic Metabolic Panel [facility] 07/01 12:58 Order name: CBC with Automated Diff [facility] 07/01 12:58 Order name: CBC with Automated Diff [facility] 07/01 12:58 Order name: CBC with Automated Diff ED[facility] 07/01 12:58 Order name: CBC with Automated Diff ED[facility] 07/01 12:58 Order name: CBC with Automated Diff EDMS 07/01 12:58 Order name: CBC with Automated Diff ED[facility] 07/01 12:58 Order name: CBC with Automated Diff EDMS 07/01 12:58 Order name: CBC with Automated Diff EDMS 07/01 12:58 Order name: Magnesium EDMS 07/01 12:58 Order name: Magnesium EDMS 07/01 12:58 Order name: Magnesium EDMS 07/01 12:58 Order name: Magnesium EDMS 07/01 12:58 Order name: Magnesium EDMS 07/01 12:58 Order name: Magnesium EDMS 07/01 12:58 Order name: Magnesium EDMS 07/01 12:58 Order name: Magnesium EDMS 07/01 12:58 Order name: Phosphorus EDMS 07/01 12:58 Order name: Phosphorus EDMS 07/01 12:58 Order name: Phosphorus EDMS 07/01 12:58 Order name: Phosphorus EDMS 07/01 12:58 Order name: Phosphorus EDMS 07/01 12:58 Order name: Phosphorus EDMS 07/01 12:58 Order name: Phosphorus EDMS 07/01 12:58 Order name: Phosphorus EDMS 07/01 13:19 Order name: Sputum Culture EDMS 07/01 13:19 Order name: Sputum Gram Stain EDMS 07/01 13:20 Order name: Procalcitonin EDMS 07/01 14:44 Order name: Lactate Sepsis 2 HR Follow-up EDMS 07/01 11:17 Order name: Chest Single View XRAY; Complete Time: 12:05 ec2 07/01 11:16 Order name: EKG; Complete Time: 11:16 ll1 07/01 12:58 Order name: CONS Physician Consult EDMS 07/01 13:12 Order name: Physical Therapy Consult EDMS 07/01 11:16 Order name: EKG - Nurse/Tech; Complete Time: 11:16 ll1 07/01 11:17 Order name: Accucheck; Complete Time: 11:57 ec2 07/01 11:17 Order name: Cardiac monitoring; Complete Time: 11:27 ec2 07/01 11:17 Order name: IV Saline Lock - Large Bore; Complete Time: 11:27 ec2 07/01 11:17 Order name: Labs collected and sent; Complete Time: ec2 07/01 11:17 Order name: O2 Per Protocol; Complete Time: ec2 07/01 11:17 Order name: O2 Sat Monitoring; Complete Time: ec2 07/01 11:17 Order name: Vital Signs; Complete Time: ec2 Administered Medications: 11:41 Drug: MethylPrednisoLONE IVP 125 mg IVP once Route: IVP; Site: right antecubital; ll1 12:54 Follow up: Response: No adverse reaction 1 11:41 Drug: DuoNeb Nebulize (3:1) (2.5 mg - 0.5 mg) 3 ml Nebulizer once Route: Nebulizer; 1 12:54 Follow up: Response: No adverse reaction 1 12:40 Drug: Rocephin IV 1 grams IV at calculated rate once; Given slow IV push per pharmacy 1 instructions Route: IV; Rate: calculated rate; Site: right antecubital; 12:54 Follow up: Response: No adverse reaction; IV Status: Completed infusion; IV Intake: [id number] 12:43 Drug: NS 0.9% IV 1000 ml IV at 1000 ml once; to be given as a bolus over 60 minutes ll1 Route: IV; Rate: 1000 ml; Site: right antecubital; 14:37 Follow up: Response: No adverse reaction; IV Status: Completed infusion; IV Intake: ll1 1000ml 12:55 Drug: AZITHromycin IVPB 500 mg IVPB once over 1 hrs; (mix in 250 mL NS) Route: IVPB; ll1 Infused Over: 1 hrs; Site: right antecubital; 14:38 Follow up: Response: No adverse reaction; IV Status: Completed infusion; IV Intake: [id number] Disposition: 12:07 Critical Care:. ec2 Disposition Summary: 07/01/24 12:09 Hospitalization Ordered Notes: Hospitalization Status: Inpatient Admission ec2 Provider: Kaushik Vital ec2 Location: Telemetry/[facility]Sur (Inpatient) ec2 Condition: Stable ec2 Problem: new ec2 Symptoms: have improved ec2 Bed/Room Type: Standard ec2 Room Assignment: 230(07/01/24 14:18) bd Diagnosis - Sepsis, unspecified organism ec2 - Unspecified bacterial pneumonia ec2 Forms: - Medication Reconciliation Form ec2 - SBAR form ec2 - Leadership Thank You Letter ec2 Critical care time excluding procedures: 12:07 Critical care time: Bedside Care: 31 minutes, Consultation: 5 minutes. Total time: 36 ec2 minutes Signatures: Dispatcher [employer] EDMS ZachArcelia Lynsay, RN RN ll1 Niko Vega MD MD ec2 Corrections: (The following items were deleted from the chart) 11:18 11:18 BLOOD CULTURE*+BA.LAB.BRZ ordered. EDMS EDMS 11:18 11:18 CBC+H.LAB.BRZ ordered. EDMS EDMS 11:18 11:18 COMPREHENSIVE METABOLIC PANEL+C.LAB.BRZ ordered. EDMS EDMS 11:18 11:18 LACTATE+C.LAB.BRZ ordered. EDMS EDMS 11:18 11:18 PROTIME (+INR)+COAG.LAB.BRZ ordered. EDMS EDMS 11:18 11:18 PTT, ACTIVATED+COAG.LAB.BRZ ordered. EDMS EDMS 11:18 11:18 PROBNP+C.LAB.BRZ ordered. EDMS EDMS 11:18 11:18 Chest Single View+RAD.RAD.BRZ ordered. EDMS EDMS 11:19 11:18 Patient with history of CHF, COPD, arrives today for progressive shortness of ec2 breath.. ec2 14:18 12:09 ec2 bd
--- NOTE | 2024-07-01 12:24 | P.HP ---
Certification for Inpatient Patient admitted to: Observation With expected LOS: <2 Midnights Practitioner: I am a practitioner with admitting privileges, knowledge of patient current condition, hospital course, and medical plan of care. Services: Services provided to patient in accordance with Admission requirements found in Title 42 Section 412.3 of the Code of Federal Regulations Patient History Date of Service: 07/01/24 Reason for admission: Acute hypoxic respiratory distress 2/2 community acquired PNA History of Present Illness: Ruy Mora is an 88 year old male with pmhx CAD, CHF, High Cholesterol, COPD on Home O2, Hypertension, Atrial Fib, epistaxis, GI Bleed who presents with worsening SOB that began one week ago. He reports using 3 LNC at home but needed to raise the oxygen for relief. He stated he was dizzy last night going to bed and felt like he would fall. Laboratory evaluation significant for WBC 12.7, H&H 11/33, BUN/creatinine 51/1.35, GFR 50, serum glucose 123, lactic acid 2.5, BNP 4395. Chest xray reports "Areas of mild infiltrate suspected left lung base and right upper lobe." Ruy will be admitted to hospitalist service for further evaluation and treatment. Allergies clopidogrel bisulfate [From Plavix] Allergy (Mild, Verified 08/26/23 22:12) Hives Home Medications: Allopurinol 100 mg PO DAILY 08/26/23 Digoxin [Lanoxin*] 1 tab PO DAILY 08/26/23 Fluticasone/Umeclidin/Vilanter [Trelegy Ellipta 100-62.5-25] 1 puff IN DAILY 08/26/23 Furosemide [Lasix] 40 mg PO BIDL 08/26/23 Gabapentin [Neurontin] 600 mg PO BID 08/26/23 Metoprolol Tartrate [Lopressor*] 50 mg PO BID 08/26/23 Pravastatin Sodium 80 mg PO BEDTIME 08/26/23 Tamsulosin [Flomax*] 1 cap PO DAILY 08/26/23 Cephalexin [Keflex] 500 mg PO Q6HR 7 Days #28 cap 01/26/24 - Past Medical/Surgical History Diabetic: No -: DVT -: Atrial fib no anticoagulation -: COPD -: GI Bleed -: Hypertension -: CHF -: CAD -: High Cholestol -: 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 -: katie filter - Social History Smoking Status: Never smoker Alcohol use: Yes CD- Drugs: No Caffeine use: Yes Review of Systems Other: Per HPI Physical Examination - Physical Exam General: Alert, In no apparent distress, Oriented x3, Cachectic HEENT: Normocephalic Neck: Supple, 2+ carotid pulse no bruit Respiratory: Clear to auscultation bilaterally, Normal air movement Cardiovascular: Normal pulses, Regular rate/rhythm, Edema Capillary refill: <2 Seconds Gastrointestinal: Normal bowel sounds, Soft and benign Musculoskeletal: No clubbing Integumentary: No rashes Neurological: Normal speech, Normal tone - Studies Laboratory Data (last 24 hrs) 07/01/24 07/01/24 07/01/24 11:25 11:25 11:25 WBC 12.70 H Hgb 11.1 L Hct 33.4 L Plt Count 138 L PT 14.2 H INR 1.26 APTT 29.6 Sodium 139 Potassium 4.0 BUN 51 H Creatinine 1.35 H Glucose 123 H Total Bilirubin 1.0 AST 32 ALT 46 Alkaline Phosphatase 92 Assessment and Plan - Plan Assessment and plan Sepsis 2/2 bilateral PNA Acute hypoxic respiratory failure secondary to COPD exacerbation associated with bilateral pneumonia -Sepsis criteria WBC 12.7, respirations 32, heart rate 97 -Procalcitonin, sputum culture ordered, follow blood culture -Reports using 3 L nasal cannula at home -Chest xray reports "Areas of mild infiltrate suspected left lung base and right upper lobe." -Rocephin and azithromycin -Oxygen protocol ordered -Room sats for home oxygen changes -Dr. Kelley consulted Atrial fibrillation (no anticoagulation) CAD CHF High Cholesterol Hypertension epistaxis GI Bleed -Continue home medication DVT ppx heparin Full code LOS 2 days Discharge Plan: Home Plan to discharge in: 72 Hours - Advance Directives Does patient have a Living Will: No Does patient have a Durable POA for Healthcare: No
[2024-07-01] MEDS ORDERED: NA CHLORIDE 0.9% 1,000 ML ONE (12:37)
[2024-07-01] MEDS ORDERED: AZITHROMYCIN 500 MG INJ IVPB ONE (12:37)
[2024-07-01] MEDS ORDERED: CEFTRIAXONE 1000 MG/VIAL ONE (12:37)
[2024-07-01] MEDS: LEVALBUTEROL 0.63 MG/3 ML NEB NEB SCH (13:00)
[2024-07-01] MEDS: IPRATROPIUM BROM 0.5MG/2.5ML NEB SCH (13:00)
[2024-07-01 13:32] LABS: Anisocytosis 1+; Blood Morphology Comment NOTED (NOT SEEN); Platelet Estimate ADEQ; Platelets, Giant NOTED; Polychromasia 1+; White Blood Cell Scan OK (OK)
[2024-07-01] MEDS: HEPARIN 5000 UNIT/ML 1 ML VIAL SQ SCH (17:00)
[2024-07-01] MEDS: METHYLPREDNISOLONE 40 MG INJ IV SCH (20:47)
[2024-07-02 00:29] LABS: Urine Bilirubin NEGATIVE (Negative); Urine Blood Negative (Negative); Urine Clarity Clear (Clear); Urine Color Light-Yellow (Yellow); Urine Glucose NEGATIVE (Negative); Urine Ketones NEGATIVE (Negative); Urine Microscopic Reflex YN NO UMIC; Urine Nitrite NEGATIVE (Negative); Urine Protein NEGATIVE (Negative); Urine Urobilinogen Normal (Normal)
[2024-07-02 05:19] LABS: Absolute Lymphocytes (CBC) 0.1 K/uL (0.7-4.9); Absolute Monocytes 0.4 K/uL (0.1-1.3); Absolute Neutrophil 10.9 K/uL (1.8-8.0); Basophils % 0.1 % (0-1.3); Eosinophils % 0.1 % (0-4.4); Hemoglobin 9.6 g/dL (13.6-17.9); Lymphocytes % 0.9 % (15.3-44.8); MCH 33.6 pg (27.0-35.0); MCHC 33.2 g/dL (32.0-36.0); MCV 101.2 fL (80-100); Monocytes % 3.1 % (3.3-12.3); Platelets 122 thou/uL (152-406); RBC Red Blood Cell Count 2.87 M/uL (4.33-5.43); Red Cell Distribution Width 16.9 % (12.1-15.2)
[2024-07-02 05:25] LABS: Neutrophils % 95.8 % (41.7-73.7)
[2024-07-02 05:41] LABS: Anion Gap 9.8 mEq/L (5.0-15.0); Phosphorus 3.1 mg/dL (2.5-4.9); Potassium 3.8 mEq/L (3.5-5.1)
[2024-07-02] MEDS: allopurinoL 100 MG TAB PO SCH (08:18)
[2024-07-02] MEDS: DIGOXIN 0.125 MG TABLET PO SCH (08:18)
[2024-07-02] MEDS: CEFTRIAXONE 1,000 MG in NA CHLORIDE 0.9% 50 ML IVPB SCH (08:18)
[2024-07-02] MEDS: TAMSULOSIN 0.4 MG SR CAP PO SCH (08:18)
[2024-07-02] MEDS: GABAPENTIN 300 MG CAP PO SCH (08:18)
[2024-07-02] MEDS: METOPROLOL TAR 50 MG TAB PO SCH (08:19)
[2024-07-02] MEDS: POTASSIUM CL SA 10 MEQ TAB PO ONE (08:19)
[2024-07-02] MEDS: AZITHROMYCIN IV 500 MG in NA CHLORIDE 0.9% 250 ML IVPB SCH (08:20)
[2024-07-02] MEDS: FUROSEMIDE 40 MG TABLET PO SCH (08:20)
[2024-07-02] MEDS: TRELEGY ELLIPTA IH SCH (08:20)
--- NOTE | 2024-07-02 12:04 | P.CNS ---
Date of Consult: 07/02/24 Reason for Consult: Respiratory failure Chief Complaint: Acute hypoxic respiratory distress 2/2 community acquired PNA History of Present Illness: Patient is 88 years of age well-known to me with a history of COPD on oxygen was admitted from my office complaining of worsening dyspnea significant hypoxemia was admitted to the hospital possible pneumonia he is doing better Allergies clopidogrel bisulfate [From Plavix] Allergy (Mild, Verified 08/26/23 22:12) Hives Home Medications: Allopurinol 100 mg PO DAILY 08/26/23 Digoxin [Lanoxin*] 1 tab PO DAILY 08/26/23 Fluticasone/Umeclidin/Vilanter [Trelegy Ellipta 100-62.5-25] 1 puff IN DAILY 08/26/23 Furosemide [Lasix] 40 mg PO BIDL 08/26/23 Gabapentin [Neurontin] 600 mg PO BID 08/26/23 Metoprolol Tartrate [Lopressor*] 50 mg PO BID 08/26/23 Pravastatin Sodium 80 mg PO BEDTIME 08/26/23 Tamsulosin [Flomax*] 1 cap PO DAILY 08/26/23 Hydrocodone/Acetaminophen [Hydrocodone-Acetamin 5-325 mg] 1 tab PO SEECOM 07/01/24 - Past Medical/Surgical History Diabetic: No -: DVT -: Atrial fib no anticoagulation -: COPD -: GI Bleed -: Hypertension -: CHF -: CAD -: High Cholestol -: 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 -: katie filter - Social History Smoking Status: Unknown if ever smoked Alcohol use: Yes CD- Drugs: No Caffeine use: Yes Place of Residence: Home Review of Systems 10-point ROS is otherwise unremarkable General: Weakness Respiratory: Shortness of Breath Physical Examination Temp Pulse Resp BP Pulse Ox 97.9 F 75 16 107/59 L 99 07/02/24 08:00 07/02/24 08:38 07/02/24 08:00 07/02/24 08:38 07/02/24 08:00 General: Alert, Oriented x3 Neck: Supple Respiratory: Crackles/rales, Expiratory wheezes Cardiovascular: No edema, Regular rate/rhythm, Normal S1 S2 Gastrointestinal: Normal bowel sounds, Soft and benign - Problems (1) COPD exacerbation Current Visit: Yes Status: Acute Plan: Patient is 88 years of age admitted with possible COPD exacerbation is quite possible that he is at underlying pneumonia white count is elevated he is currently doing better oxygenation stable have ordered an echo changed to p.o. levofloxacin and p.o. prednisone possible underlying diastolic dysfunction add spironolactone once a day reduce dose of Lasix possible discharge in a day or so ambulate
[2024-07-02] MEDS: SPIRONOLACTONE 25 MG TABLET PO SCH (12:25)
--- NOTE | 2024-07-02 14:48 | P.PN ---
Date of Service: 07/02/24 Subjective Awake and conversing well On 4 LNC no new complaint ROS 10 point ROS as noted above, otherwise negative - Physical Exam General: Alert and Oriented x3, NAD HEENT: Normocephalic Neck: Supple, 2+ carotid pulse no bruit Respiratory: Expiratory wheezes, Normal air movement, on 4 LNC Cardiovascular: Normal pulses, Regular rate/rhythm, Edema Capillary refill: <2 Seconds Gastrointestinal: Normal bowel sounds, Soft and benign on palpation Musculoskeletal: No clubbing Integumentary: No rashes Neurological: Normal speech, Normal tone Vitals Reviewed Problem list Sepsis 2/2 bilateral PNA Acute hypoxic respiratory failure secondary to COPD exacerbation associated with bilateral pneumonia Atrial fibrillation (no anticoagulation) CAD CHF High Cholesterol Hypertension epistaxis GI Bleed Assessment and Plan Sepsis 2/2 bilateral PNA Acute hypoxic respiratory failure secondary to COPD exacerbation associated with bilateral pneumonia -Sepsis criteria WBC 12.7, respirations 32, heart rate 97 -Procalcitonin, sputum culture ordered, follow blood culture -Reports using 3 L nasal cannula at home -Chest xray reports "Areas of mild infiltrate suspected left lung base and right upper lobe." -Rocephin and azithromycin stopped and oral levaquin started -Oxygen protocol ordered, on 4 LNC -Room sats for home oxygen changes -Dr. Kelley following, spironolactone Atrial fibrillation (no anticoagulation) CAD CHF High Cholesterol Hypertension epistaxis GI Bleed -Continue home medication DVT ppx heparin Full code LOS 2 days Discharge Plan: Home Plan to discharge in: 72 Hours
[2024-07-02] MEDS: ATORVASTATIN 10 MG TAB PO SCH (20:07)
[2024-07-02] MEDS: HYDROCODONE/APAP 5/325 MG TAB PO PRN (22:58)
[2024-07-03 04:50] LABS: Absolute Lymphocytes (CBC) 0.1 K/uL (0.7-4.9); Absolute Monocytes 0.3 K/uL (0.1-1.3); Absolute Neutrophil 11.4 K/uL (1.8-8.0); Basophils % 0.2 % (0-1.3); Hematocrit 27.2 % (39.6-49.0); Hemoglobin 9.3 g/dL (13.6-17.9); Lymphocytes % 1.2 % (15.3-44.8); MCH 34.4 pg (27.0-35.0); MCHC 34.4 g/dL (32.0-36.0); MCV 100.3 fL (80-100); MPV 8.1 fL (7.6-11.3); Monocytes % 2.5 % (3.3-12.3); Platelets 106 thou/uL (152-406); RBC Red Blood Cell Count 2.71 M/uL (4.33-5.43)
[2024-07-03 04:53] LABS: Neutrophils % 96.1 % (41.7-73.7)
[2024-07-03 05:02] LABS: Anion Gap 9.2 mEq/L (5.0-15.0); Phosphorus 3.4 mg/dL (2.5-4.9); Potassium 4.2 mEq/L (3.5-5.1)
[2024-07-03] MEDS: FUROSEMIDE 40 MG TABLET PO SCH (08:52)
[2024-07-03] MEDS: levoFLOXacin 500 MG TAB PO SCH (08:52)
--- NOTE | 2024-07-03 10:52 | P.PN ---
Date of Service: 07/03/24 Subjective: feels slightly better today. Feels easier to breath today. worked with PT this morning desat to 70s when ambulating outside his room while on O2 SPO2 sats increased to 90s after increasing oxygen to 6L and taking a break. afebrile ROS: 10 point ROS as noted above, otherwise negative Physical Exam: GEN: Alert, oriented, NAD CV: Regular rate and rhythm, no edema Pulm: Nonlabored respirations on 3L NC at rest, b/l wheeze ABD: soft, nontender, nondistended Neuro: Normal speech, normal affect Problem List: Sepsis secondary to suspected bilateral Pneumonia Acute hypoxic respiratory failure; multifactorial secondary to COPD exacerbation / Bilateral Pneumonia Atrial fibrillation (not on anticoagulation); s/p watchman and pacemaker Chronic CHF Hypertension Hx of CAD Hx of GI Bleed hx of DVT Sepsis secondary to suspected bilateral Pneumonia Acute hypoxic respiratory failure secondary to COPD exacerbation vs Bilateral Pneumonia on admission, presents with worsening shortness of breath. SPO2 in 70s on 4L NC upon triage. CXR (07/01): Areas of mild infiltrate suspected left lung base and right upper lobe continue oral levaquin (07/03-); deescalated from IV rocephin/azithromycin (07/02) continue IV steroids; likely deescalate to oral steroids next 12-24 hours. continue digoxin, lasix, duonebs continue PT- desat to 70s when ambulating outside his room on home O2 settings. SPO2 sats increased to 90s after increasing oxygen to 6L and taking a break. Follow blood, sputum cultures wean oxygen as tolerated. Has home oxygen already. (typically 3L NC at home) improving but still dropping quickly with activity Atrial fibrillation (not on anticoagulation); s/p watchman and pacemaker Chronic CHF Hypertension Hx of CAD Hx of GI Bleed hx of DVT continue home medications VTE: heparin sq Code: Full Dispo: home, ~1-2 days Time Spent Managing Pts Care (In Minutes): 55
--- NOTE | 2024-07-03 13:09 | ECHO ---
HEIGHT: 6 ft 0 in WEIGHT: 195 lb 0 oz DATE OF STUDY: 07/03/[address]: Alfonso Kelley MD 2-DIMENSIONAL: YES M.MODE: YES DOPPLER: YES COLOR FLOW: YES TDS: NO PORTABLE: YES DEFINITY: NO BUBBLE STUDY: NO DIAGNOSIS: RESPIRATORY FAILURE CARDIAC HISTORY: CATHERIZATION:YES SURGERY: NO PROSTHETIC VALVE: NO PACEMAKER: YES MEASUREMENTS (cm) DIASTOLIC (NORMALS) SYSTOLIC (NORMALS) IVSd 1.3 (0.6-1.2) LA Diam 2.5 (1.9-4.0) LVEF 60-65% LVIDd 4.2 (3.5-5.7) LVIDs 2.9 (2.0-3.5) %FS 31% LVPWd 1.3 (0.6-1.2) Ao Diam 3.3 (2.0-3.7) 2 DIMENSIONAL ASSESSMENT: RIGHT ATRIUM: NORMAL LEFT ATRIUM: MODERATE DILATED RIGHT VENTRICLE: NORMAL LEFT VENTRICLE: MILD LEFT VENTRICULAR HYPERTROPHY TRICUSPID VALVE: SEVERE TRICUSPID REGURGITATION MITRAL VALVE: CALCIFIED PULMONIC VALVE: NORMAL AORTIC VALVE: CALCIFIED PERICARDIAL EFFUSION: NONE AORTIC ROOT: NORMAL LEFT VENTRICULAR WALL MOTION: NORMAL. DOPPLER/COLOR FLOW: DIASTOLIC DYSFUNCTION. COMMENTS: 1. NORMAL LEFT VENTRICULAR SYSTOLIC FUNCTION. LEFT VENTRICULAR EJECTION FRACTION 60-65%. NORMAL WALL MOTION. 2. DIASTOLIC DYSFUNCTION. 3. SEVERE TRICUSPID REGURGITATION. 4. SEVERE PULMONARY HYPERTENSION. RIGHT VENTRICULAR SYSTOLIC PRESSURE >60 mmHg. 5. ELEVATED FILLING PRESSURES. RIGHT ATRIAL PRESSURE 15-20 mmHg. TECHNOLOGIST: BAILEE SIFUENTES
--- NOTE | 2024-07-03 14:28 | P.PN ---
Subjective Date of Service: 07/03/24 Chief Complaint: Acute hypoxic respiratory distress 2/2 community acquired PNA Subjective: Improving (Doing better weak improving) Review of Systems General: Weakness Respiratory: Shortness of Breath Physical Examination - Vital Signs Temperature: 97.3 F Blood Pressure: 113/70 Pulse: 84 Respirations: 20 Pulse Ox (%): 90 - Physical Exam General: In no apparent distress, Oriented x3 Respiratory: Clear to auscultation bilaterally, Diminished Cardiovascular: No edema, Regular rate/rhythm, Normal S1 S2 Assessment And Plan - Current Problems (Diagnosis) (1) COPD exacerbation Current Visit: Yes Status: Acute Plan: AW COPD exacerbation doing much better / Change to pred 20 BID Discharge planning PT
[2024-07-03] MEDS: predniSONE 20 MG TAB PO SCH (21:19)
[2024-07-03] MEDS: ACETAMINOPHEN 325 MG TABLET PO PRN (21:31)
[2024-07-04 04:37] LABS: Absolute Lymphocytes (CBC) 0.1 K/uL (0.7-4.9); Absolute Monocytes 0.3 K/uL (0.1-1.3); Absolute Neutrophil 9.5 K/uL (1.8-8.0); Basophils % 0.2 % (0-1.3); Hematocrit 28.6 % (39.6-49.0); Hemoglobin 9.8 g/dL (13.6-17.9); Lymphocytes % 1.3 % (15.3-44.8); MCH 34.4 pg (27.0-35.0); MCHC 34.2 g/dL (32.0-36.0); MCV 100.6 fL (80-100); MPV 8.1 fL (7.6-11.3); Monocytes % 3.5 % (3.3-12.3); Nucleated Red Blood Cells % 0.1 % (0-0); Platelets 104 thou/uL (152-406); RBC Red Blood Cell Count 2.84 M/uL (4.33-5.43); Red Cell Distribution Width 17.3 % (12.1-15.2)
[2024-07-04 04:54] LABS: Anion Gap 10.2 mEq/L (5.0-15.0); Magnesium 2.2 mg/dL (1.6-2.4); Phosphorus 3.5 mg/dL (2.5-4.9); Potassium 4.2 mEq/L (3.5-5.1)
[2024-07-04] MEDS: POLYETHYL GLY 3350 17 GM/DOSE PO ONE (11:26)
--- NOTE | 2024-07-04 17:01 | EKG ---
Test Date: 2024-07-01 Test Time: 11:13:48 An/Syq 13 Nav/C2 Operator: JAVIER MEASUREMENT RESULTS: Intervals: Rate: 102 NV: QRSD: 134 QT: 336 QTc: 437 [place]: P: NV: QRS: 81 T: 167 INTERPRETIVE STATEMENTS: Wide QRS rhythm with premature ventricular complexes or fusion complexes Right bundle branch block T wave abnormality, consider inferolateral ischemia Abnormal ECG Compared to ECG 01/25/2024 09:49:23 Uncertain supraventricular rhythm now present Fusion complex(es) now present T-wave abnormality now present Possible ischemia now present Ventricular-paced complex(es) or rhythm no longer present Atrial fibrillation no longer present Electronically Signed On 07-04-24 16:49:23 PRESCHOOL PROGRAM DIRECTOR by Armin Myles
--- NOTE | 2024-07-04 22:22 | P.PN ---
Date of Service: 07/04/24 Subjective: feels slightly improved today worked with PT, walked a little further but still very weak and dyspneic ROS: 10 point ROS as noted above, otherwise negative Physical Exam: GEN: Alert, oriented, NAD CV: Regular rate and rhythm, no edema Pulm: Nonlabored respirations on 3L NC at rest, b/l wheeze Neuro: Normal speech, normal affect Problem List: Sepsis secondary to suspected bilateral Pneumonia Acute hypoxic respiratory failure; multifactorial secondary to COPD exacerbation / Bilateral Pneumonia Atrial fibrillation (not on anticoagulation); s/p watchman and pacemaker Chronic CHF Hypertension Hx of CAD Hx of GI Bleed hx of DVT Sepsis secondary to suspected bilateral Pneumonia Acute hypoxic respiratory failure secondary to COPD exacerbation vs Bilateral Pneumonia on admission, presents with worsening shortness of breath. SPO2 in 70s on 4L NC upon triage. CXR (07/01): Areas of mild infiltrate suspected left lung base and right upper lobe continue oral levaquin (07/03-); deescalated from IV rocephin/azithromycin (07/02) steroids, nebs continue PT- desat to 70s when ambulating outside his room on home O2 settings. SPO2 sats increased to 90s after increasing oxygen to 6L and taking a break. on 07/03 slight improvement 07/04 Follow blood, sputum cultures wean oxygen as tolerated. Has home oxygen already. (typically 3L NC at home) improving but still dropping quickly with activity he reports feeling better each day and feels he may be well enough to go home with home health tomorrow Atrial fibrillation (not on anticoagulation); s/p watchman and pacemaker Chronic CHF Hypertension Hx of CAD Hx of GI Bleed hx of DVT continue home medications VTE: heparin sq Code: Full Dispo: home w/ HH, ~1-2 days Time Spent Managing Pts Care (In Minutes): 55
[2024-07-05 05:43] LABS: Absolute Lymphocytes (CBC) 0.1 K/uL (0.7-4.9); Absolute Monocytes 0.3 K/uL (0.1-1.3); Absolute Neutrophil 7.8 K/uL (1.8-8.0); Anion Gap 9.3 mEq/L (5.0-15.0); Basophils % 0.1 % (0-1.3); Hematocrit 28.1 % (39.6-49.0); Hemoglobin 9.3 g/dL (13.6-17.9); Lymphocytes % 1.5 % (15.3-44.8); MCH 33.7 pg (27.0-35.0); MCV 102.1 fL (80-100); MPV 8.1 fL (7.6-11.3); Magnesium 2.2 mg/dL (1.6-2.4); Monocytes % 3.9 % (3.3-12.3); Neutrophils % 94.5 % (41.7-73.7); Nucleated Red Blood Cells % 0.2 % (0-0); Phosphorus 3.2 mg/dL (2.5-4.9); Platelets 107 thou/uL (152-406); Potassium 4.3 mEq/L (3.5-5.1); RBC Red Blood Cell Count 2.75 M/uL (4.33-5.43)
[2024-07-05 09:08] LABS: Blood Morphology Comment NOT SEEN (NOT SEEN); Platelet Estimate ADEQ; White Blood Cell Scan OK (OK)
--- NOTE | 2024-07-05 10:42 | P.PN ---
Date of Service: 07/05/24 Subjective: feels some slight improvement each day but doesn't feel ready to go home - had BM last night and required 3-4 ppl to get him back into bed still very SOB with minimal activity able to walk slightly farther with PT before getting tired yesterday ROS: 10 point ROS as noted above, otherwise negative Physical Exam: GEN: Alert, oriented, NAD CV: Regular rate and rhythm, no edema Pulm: Nonlabored respirations on 3L NC at rest, b/l wheeze Neuro: Normal speech, normal affect Problem List: Sepsis secondary to suspected bilateral Pneumonia Acute hypoxic respiratory failure; multifactorial secondary to COPD exacerbation / Bilateral Pneumonia Atrial fibrillation (not on anticoagulation); s/p watchman and pacemaker Chronic CHF Hypertension Hx of CAD Hx of GI Bleed hx of DVT Sepsis secondary to suspected bilateral Pneumonia Acute hypoxic respiratory failure secondary to COPD exacerbation vs Bilateral Pneumonia on admission, presents with worsening shortness of breath. SPO2 in 70s on 4L NC upon triage. CXR (07/01): Areas of mild infiltrate suspected left lung base and right upper lobe continue oral levaquin (07/03-); deescalated from IV rocephin/azithromycin (07/02) steroids, nebs continue PT- desat to 70s when ambulating outside his room on home O2 settings. SPO2 sats increased to 90s after increasing oxygen to 6L and taking a break. on 07/03 slight improvement 07/04 Follow blood, sputum cultures wean oxygen as tolerated. Has home oxygen already. (typically 3L NC at home) improving but still dropping quickly with activity he reports feeling better each day, will see how he does with PT today. repeat CXR to re-eval 07/05 Atrial fibrillation (not on anticoagulation); s/p watchman and pacemaker Chronic CHF Hypertension Hx of CAD Hx of GI Bleed hx of DVT continue home medications VTE: heparin sq Code: Full Dispo: home w/ HH, ~1-2 days Time Spent Managing Pts Care (In Minutes): 55
--- NOTE | 2024-07-05 11:04 | RAD REPORT ---
Procedure: Chest Single View HISTORY: Shortness of breath COMPARISON: July 01, 2024 FINDINGS: Mild improvement in the left basilar lung opacities. No significant change in the right upper lobe opacities No significant pleural effusion noted. The heart remains enlarged.
[2024-07-06 04:44] LABS: Absolute Lymphocytes (CBC) 0.2 K/uL (0.7-4.9); Absolute Monocytes 0.4 K/uL (0.1-1.3); Absolute Neutrophil 8.4 K/uL (1.8-8.0); Basophils % 0.1 % (0-1.3); Hematocrit 28.3 % (39.6-49.0); Hemoglobin 9.5 g/dL (13.6-17.9); Lymphocytes % 1.8 % (15.3-44.8); MCH 34.2 pg (27.0-35.0); MCHC 33.7 g/dL (32.0-36.0); MCV 101.6 fL (80-100); MPV 8.3 fL (7.6-11.3); Monocytes % 4.3 % (3.3-12.3); Neutrophils % 93.8 % (41.7-73.7); Nucleated Red Blood Cells % 0.3 % (0-0); Platelets 100 thou/uL (152-406); RBC Red Blood Cell Count 2.79 M/uL (4.33-5.43); Red Cell Distribution Width 16.8 % (12.1-15.2)
[2024-07-06 05:02] LABS: Anion Gap 6.6 mEq/L (5.0-15.0); Magnesium 2.5 mg/dL (1.6-2.4); Phosphorus 2.7 mg/dL (2.5-4.9); Potassium 4.6 mEq/L (3.5-5.1)
--- NOTE | 2024-07-06 09:05 | P.PN ---
Date of Service: 07/06/24 Subjective: doing okay, feeling some improvement each day but still very SOB With minimal activity reports he would've been able to walk much farther 2 weeks ago without getting tired or as short of breath,. down to 2L nasal cannula this morning afebrile dropped to 70s with just 3 steps today ROS: 10 point ROS as noted above, otherwise negative Physical Exam: GEN: Alert, oriented, NAD CV: Regular rate and rhythm, no edema Pulm: Nonlabored respirations on 2L NC at rest, b/l wheeze Neuro: Normal speech, normal affect Problem List: Sepsis secondary to suspected bilateral Pneumonia Acute hypoxic respiratory failure; multifactorial secondary to COPD exacerbation / Bilateral Pneumonia Atrial fibrillation (not on anticoagulation); s/p watchman and pacemaker Chronic CHF Hypertension Hx of CAD Hx of GI Bleed hx of DVT Sepsis secondary to suspected bilateral Pneumonia Acute hypoxic respiratory failure secondary to COPD exacerbation vs Bilateral Pneumonia on admission, presents with worsening shortness of breath. SPO2 in 70s on 4L NC upon triage. CXR (07/01): Areas of mild infiltrate suspected left lung base and right upper lobe continue oral levaquin (07/03-); deescalated from IV rocephin/azithromycin (07/02) steroids, nebs continue PT- desat to 70s when ambulating outside his room on home O2 settings. SPO2 sats increased to 90s after increasing oxygen to 6L and taking a break. on 07/03 slight improvement 07/04 Follow blood, sputum cultures wean oxygen as tolerated. Has home oxygen already. (typically 3L NC at home) improving but still dropping quickly with activity he reports feeling better each day, will see how he does with PT. CXR (07/05): mild improvement in the left basilar lung opacities. No change in RUL opacity. Atrial fibrillation (not on anticoagulation); s/p watchman and pacemaker Chronic CHF Hypertension Hx of CAD Hx of GI Bleed hx of DVT continue home medications VTE: heparin sq Code: Full Dispo: slow improvement, very dyspneic with little activity woul dbenefit from SNF, Patient agreeable to SNF (07/06) Time Spent Managing Pts Care (In Minutes): 55
--- NOTE | 2024-07-06 10:46 | P.PN ---
Subjective Date of Service: 07/06/24 Chief Complaint: Pneumonia Subjective: Improving (Appears to be improving still very weak has episodes of desaturation) Review of Systems General: Weakness Respiratory: Shortness of Breath Physical Examination - Vital Signs Temperature: 97.0 F Blood Pressure: 111/74 Pulse: 85 Respirations: 23 Pulse Ox (%): 92 - Physical Exam General: Alert, Oriented x3 Neck: Supple Respiratory: Clear to auscultation bilaterally, Diminished Cardiovascular: Regular rate/rhythm Assessment And Plan - Current Problems (Diagnosis) (1) COPD exacerbation Current Visit: Yes Status: Acute Plan: Admitted with COPD exacerbation possible pneumonia on the left side chest x-ray improved labs reviewed white count is now normal renal function is improved Discharge planning/ Poss SNF, Reduce pred dose prognosis poor patient has progressive deterioration in the past year weak and hypoxic at home
[2024-07-06] MEDS: predniSONE 10 MG TAB PO SCH (11:00)
[2024-07-06 13:50] VITALS: BMI 26.4
[2024-07-07 06:33] LABS: Anion Gap 8.4 mEq/L (5.0-15.0); Magnesium 2.4 mg/dL (1.6-2.4); Potassium 4.4 mEq/L (3.5-5.1)
[2024-07-07 06:38] LABS: Absolute Lymphocytes (CBC) 0.2 K/uL (0.7-4.9); Absolute Monocytes 0.4 K/uL (0.1-1.3); Absolute Neutrophil 8.8 K/uL (1.8-8.0); Basophils % 0.1 % (0-1.3); Eosinophils % 0.1 % (0-4.4); Hematocrit 30.5 % (39.6-49.0); Hemoglobin 10.4 g/dL (13.6-17.9); Lymphocytes % 2.3 % (15.3-44.8); MCH 34.5 pg (27.0-35.0); MCV 101.4 fL (80-100); MPV 8.2 fL (7.6-11.3); Monocytes % 4.6 % (3.3-12.3); Neutrophils % 92.9 % (41.7-73.7); Nucleated Red Blood Cells % 0.2 % (0-0); Platelets 115 thou/uL (152-406); Red Cell Distribution Width 16.9 % (12.1-15.2)
[2024-07-07] MEDS: ENOXAPARIN 40 MG/0.4 ML SQ SCH (08:50)
--- NOTE | 2024-07-07 09:39 | P.CNS ---
Date of Consult: 07/07/24 Chief Complaint: Pneumonia History of Present Illness: Patient with PMH of CHF, AF, Pacemaker placement, presented with worsening SOB, getting treated for PNA, cardiology consulted for severe TR, possible CHF. patient report SOB, CACERES, no syncope, no chest pain. Allergies clopidogrel bisulfate [From Plavix] Allergy (Mild, Verified 08/26/23 22:12) Hives Home medications list reviewed: Yes Home Medications: Allopurinol 100 mg PO DAILY 08/26/23 Digoxin [Lanoxin*] 1 tab PO DAILY 08/26/23 Fluticasone/Umeclidin/Vilanter [Trelegy Ellipta 100-62.5-25] 1 puff IN DAILY 08/26/23 Furosemide [Lasix] 40 mg PO BIDL 08/26/23 Gabapentin [Neurontin] 600 mg PO BID 08/26/23 Metoprolol Tartrate [Lopressor*] 50 mg PO BID 08/26/23 Pravastatin Sodium 80 mg PO BEDTIME 08/26/23 Tamsulosin [Flomax*] 1 cap PO DAILY 08/26/23 Hydrocodone/Acetaminophen [Hydrocodone-Acetamin 5-325 mg] 1 tab PO SEECOM 07/01/24 - Past Medical/Surgical History Diabetic: No -: DVT -: Atrial fib no anticoagulation -: COPD -: GI Bleed -: Hypertension -: CHF -: CAD -: High Cholestol -: 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 -: katie filter - Social History Smoking Status: Unknown if ever smoked Alcohol use: Yes CD- Drugs: No Caffeine use: Yes Place of Residence: Home Review of Systems 10-point ROS is otherwise unremarkable Physical Examination Temp Pulse Resp BP Pulse Ox 97.2 F 62 18 121/62 95 07/07/24 08:00 07/07/24 08:50 07/07/24 08:00 07/07/24 08:50 07/07/24 08:00 General: Alert, In no apparent distress HEENT: Atraumatic, PERRLA, Mucous membr. moist/pink, EOMI, Sclerae nonicteric Neck: Supple, 2+ carotid pulse no bruit, No LAD, Without JVD or thyroid abnormality Respiratory: Clear to auscultation bilaterally, Normal air movement Cardiovascular: Regular rate/rhythm, Normal S1 S2 Gastrointestinal: Normal bowel sounds, No tenderness Musculoskeletal: No tenderness Integumentary: No rashes Neurological: Normal gait, Normal speech, Normal tone, Normal affect Lymphatics: No axilla or inguinal lymphadenopathy - Problems (1) Acute on chronic diastolic heart failure Current Visit: Yes Status: Acute Plan: Patient with severe TR that will worsen his HF all the time, his echo shows DD, normal EF increase lasix to 40 mg po BID Add Aldactone 25 mg daily continue lopressor continue to monitor input and output and electrolytes. (2) Tricuspid regurgitation Current Visit: Yes Status: Acute Plan: Patient is not a surgical candidate, continue medical management as above. (3) Atrial fibrillation with rapid ventricular response Onset Date: 02/05/18 Current Visit: No Status: Acute Plan: patient tele shows alternating AF vs paced. continue lopressor and eliquis.
--- NOTE | 2024-07-07 11:10 | P.PN ---
Date of Service: 07/07/24 Subjective: doing okay, feeling some improvement each day but still very SOB With minimal activity reports he would've been able to walk much farther 2 weeks ago without getting tired or as short of breath down to 2L nasal cannula this morning afebrile dropped to 70s with just 3 steps today ROS: 10 point ROS as noted above, otherwise negative Physical Exam: GEN: Alert, oriented, NAD at rest CV: Regular rate and rhythm, no edema Pulm: Nonlabored respirations on 2-3L NC at rest, b/l wheeze Neuro: Normal speech, normal affect Problem List: Sepsis secondary to suspected bilateral Pneumonia Acute hypoxic respiratory failure; multifactorial secondary to COPD exacerbation / Bilateral Pneumonia Acute on chronic diastolic CHF Severe Tricuspid Regurgitation Atrial fibrillation (not on anticoagulation); s/p watchman and pacemaker Hypertension Hx of CAD s/p PCI (2003) Hx of GI Bleed secondary to bleeding AVM Hx of iron deficiency anemia hx of DVT s/p IVC filter (2015) Sepsis secondary to suspected bilateral Pneumonia Acute hypoxic respiratory failure secondary to COPD exacerbation vs Bilateral Pneumonia Acute on chronic diastolic CHF on admission, presents with worsening shortness of breath. SPO2 in 70s on 4L NC upon triage. CXR (07/01): Areas of mild infiltrate suspected left lung base and right upper lobe continue oral levaquin (07/03-); deescalated from IV rocephin/azithromycin (07/02) steroids, nebs continue PT- desat to 70s when ambulating outside his room on home O2 settings. SPO2 sats increased to 90s after increasing oxygen to 6L and taking a break. on 07/03 slight improvement 07/04 Follow blood, sputum cultures wean oxygen as tolerated. Has home oxygen already. (typically 3L NC at home) improving but still dropping quickly with activity he reports feeling better each day, will see how he does with PT. CXR (07/05): mild improvement in the left basilar lung opacities. No change in RUL opacity. Echo (07/02), severe TR, severe pulm HTN, diastolic dysfunction, elevated filling pressure 15-20mmHG, normal 60-65% EF TERRENCE from 2017 with normal tricuspid valve, mild biatrial enlargement with normal right and left ventricular size with normal EF. +aortic valve calfication, mild to moderate mitral annular calcification and trace mitral regurgitation. TERRENCE from 2023 with moderate MR and mild . EF 40-45%. Cardiology consulted continue oral lasix; increase to 40 mg BID per cardio continue oral adelia 25 mg daily Patient non-surgical candidate regarding Tricuspid regurgitation per cardio. Suspect pneumonia and COPD contributing to this tricuspid regurgitation -which would be new/developed sometime in the last year Atrial fibrillation (not on anticoagulation); s/p watchman and pacemaker Hypertension Hx of CAD s/p PCI (2003) Hx of GI Bleed secondary to bleeding AVM Hx of iron deficiency anemia hx of DVT s/p IVC filter (2015) continue home medications VTE: Lovenox Code: Full Dispo: slow improvement, very dyspneic with little activity would benefit from SNF, Patient agreeable to SNF (07/06) Time Spent Managing Pts Care (In Minutes): 55
[2024-07-07] MEDS: FUROSEMIDE 40 MG TABLET PO SCH (17:02)
[2024-07-07] MEDS: LEVALBUTEROL 0.63 MG/3 ML NEB NEB PRN (20:08)
[2024-07-08 05:20] LABS: Absolute Lymphocytes (CBC) 0.3 K/uL (0.7-4.9); Absolute Monocytes 0.5 K/uL (0.1-1.3); Absolute Neutrophil 9.1 K/uL (1.8-8.0); Basophils % 0.3 % (0-1.3); Eosinophils % 0.2 % (0-4.4); Hematocrit 30.1 % (39.6-49.0); Hemoglobin 10.2 g/dL (13.6-17.9); Lymphocytes % 2.6 % (15.3-44.8); MCH 34.2 pg (27.0-35.0); MCHC 33.8 g/dL (32.0-36.0); MCV 101.1 fL (80-100); MPV 7.9 fL (7.6-11.3); Monocytes % 4.7 % (3.3-12.3); Nucleated Red Blood Cells % 0.2 % (0-0); Platelets 115 thou/uL (152-406); RBC Red Blood Cell Count 2.98 M/uL (4.33-5.43); Red Cell Distribution Width 16.9 % (12.1-15.2)
[2024-07-08 05:21] LABS: Neutrophils % 92.2 % (41.7-73.7)
[2024-07-08 05:36] LABS: Anion Gap 5.4 mEq/L (5.0-15.0); Magnesium 2.2 mg/dL (1.6-2.4); Phosphorus 2.9 mg/dL (2.5-4.9); Potassium 4.4 mEq/L (3.5-5.1)
--- NOTE | 2024-07-08 09:03 | RAD REPORT ---
EXAMINATION: ONE VIEW CHEST XR CLINICAL INDICATION: f/u opacities TECHNIQUE: Frontal chest projection is submitted. Examination is limited by patient positioning and t echnique. COMPARISON: 07/05/2024 FINDINGS: Mild emphysematous changes are present. Ill-defined opacities in the right upper lobe appear unchange d. Blunting of both costophrenic angles also unchanged, likely pleural thickening. The heart is moderately enlarged in size. Dual-lead pacer device. Chondroid lesion proximal right humerus, stable. IMPRESSION: Stable chest since 07/05/2024 study.
--- NOTE | 2024-07-08 11:32 | P.PN ---
Date of Service: 07/08/24 Subjective: feeling better each day - feels breathing is more back to normal at rest got to bedside and stood with PT today, felt ok, but pulse ox showed oxygen sat dropped, so PT stopped patient states he felt like he could do more / wanted to walk on 4L NC pending SNF approval no fevers ROS: 10 point ROS as noted above, otherwise negative Physical Exam: GEN: Alert, oriented, NAD at rest CV: Regular rate and rhythm, no edema Pulm: Nonlabored respirations on 2-3L NC at rest, b/l wheeze Neuro: Normal speech, normal affect Problem List: Sepsis secondary to suspected bilateral Pneumonia Acute hypoxic respiratory failure; multifactorial secondary to COPD exacerbation / Bilateral Pneumonia Acute on chronic diastolic CHF Severe Tricuspid Regurgitation Atrial fibrillation (not on anticoagulation); s/p watchman and pacemaker Hypertension Hx of CAD s/p PCI (2003) Hx of GI Bleed secondary to bleeding AVM Hx of iron deficiency anemia hx of DVT s/p IVC filter (2015) Sepsis secondary to suspected bilateral Pneumonia Acute hypoxic respiratory failure secondary to COPD exacerbation vs Bilateral Pneumonia Acute on chronic diastolic CHF Severe Tricuspid Regurgitation on admission, presents with worsening shortness of breath. SPO2 in 70s on 4L NC upon triage. CXR (07/01): Areas of mild infiltrate suspected left lung base and right upper lobe continue oral levaquin (07/03-); deescalated from IV rocephin/azithromycin (07/02) steroids, nebs Follow blood, sputum cultures wean oxygen as tolerated. Has home oxygen already. (typically 3L NC at home) CXR (07/05): mild improvement in the left basilar lung opacities. No change in RUL opacity. Echo (07/02), severe TR, severe pulm HTN, diastolic dysfunction, elevated filling pressure 15-20mmHG, normal 60-65% EF TERRENCE from 2017 with normal tricuspid valve, mild biatrial enlargement with normal right and left ventricular size with normal EF. +aortic valve calfication, mild to moderate mitral annular calcification and trace mitral regurgitation. TERRENCE from 2023 with moderate MR and mild . EF 40-45%. Cardiology consulted continue oral lasix; increase to 40 mg BID per cardio continue oral adelia 25 mg daily Patient non-surgical candidate regarding Tricuspid regurgitation per cardio. Suspect pneumonia and COPD contributing to this tricuspid regurgitation -which would be new/developed sometime in the last year repeat CXR 07/08 ~same, stable. continue PT - improving but still dropping quickly with activity he reports feeling better each day, will see how he does with PT. consulted pulm, eval pulm HTN, ?in setting of COPD/pna Atrial fibrillation (not on anticoagulation); s/p watchman and pacemaker Hypertension Hx of CAD s/p PCI (2003) Hx of GI Bleed secondary to bleeding AVM Hx of iron deficiency anemia hx of DVT s/p IVC filter (2015) continue home medications VTE: Lovenox Code: Full Dispo: SNF - pending approval Time Spent Managing Pts Care (In Minutes): 55
--- NOTE | 2024-07-08 14:32 | RAD REPORT ---
EXAMINATION: CTA CHEST AORTA CLINICAL INDICATION: Male, 88 years old [facility] MA[facility] RO PE TECHNIQUE: This examination was performed according to an angiographic protocol with 3D post-processi ng. This involves 3D reconstructions, MIPs, volume rendered images and/or shaded surface rendering. One or more of the following dose reduction techniques were used: Automated exposure control, adjustm ent of the mA and/or kV according to patient size, and/or iterative reconstruction. Unless otherwise specified, incidental findings do not require dedicated imaging follow-up. [id number]. COMPARISON: CT 09/27/2021 FINDINGS: LOWER NECK: Visualized thyroid gland and soft tissues are normal. LUNGS AND AIRWAYS: Moderate emphysema.Motion artifact limits evaluation for pulmonary nodule detectio n. Subpleural thickening in the right lung with volume loss is chronic. No evidence of pneumonia or pulmonary edema. PLEURA: No pleural effusion. No pneumothorax. Hemidiaphragms are normally positioned. MEDIASTINUM AND LYMPH NODES: Enlarged subcarinal lymph node measuring 19 mm is unchanged. THORACIC AORTA: No thoracic aortic aneurysm. Atherosclerotic changes are present. PULMONARY ARTERIES: Enlarged main pulmonary arteries could indicate pulmonary artery hypertension. Ne gative for pulmonary embolus. HEART: Mild cardiomegaly. No coronary calcifications.No significant pericardial effusion. Aortic valv e and mitral annular calcifications. Left atrial appendage occlusion device. OSSEOUS STRUCTURES AND CHEST WALL: Multilevel degenerative changes. No acute fracture. Findings ella tible with diffuse idiopathic skeletal hyperostosis. UPPER ABDOMEN: No significant abnormalities.Motion artifact. IMPRESSION: Negative for pulmonary embolus. Pulmonary findings which are favored primarily chronic without defini te acute process identified. Motion artifact.
[2024-07-09 06:55] LABS: Anion Gap 7.6 mEq/L (5.0-15.0); Magnesium 2.3 mg/dL (1.6-2.4); Potassium 4.6 mEq/L (3.5-5.1)
--- NOTE | 2024-07-09 08:24 | P.PN ---
Subjective Date of Service: 07/09/24 Chief Complaint: COPD exacerbation Subjective: Improving (Patient is improving still very weak waiting for rehab) Review of Systems General: Weakness Respiratory: Shortness of Breath Physical Examination - Vital Signs Temperature: 97.8 F Blood Pressure: 96/58 Pulse: 89 Respirations: 20 Pulse Ox (%): 92 - Physical Exam General: Alert, In no apparent distress, Oriented x3 Respiratory: Clear to auscultation bilaterally, Diminished Cardiovascular: Regular rate/rhythm, Normal S1 S2, Edema Assessment And Plan - Current Problems (Diagnosis) (1) COPD exacerbation Current Visit: Yes Status: Acute Plan: Patient admitted with respiratory failure COPD exacerbation Profound debilitation progressive weakness Echocardiogram [id number] NORMAL LEFT VENTRICULAR SYSTOLIC FUNCTION. LEFT VENTRICULAR EJECTION FRACTION 60-65%. NORMAL WALL MOTION. 2. DIASTOLIC DYSFUNCTION. 3. SEVERE TRICUSPID REGURGITATION. 4. SEVERE PULMONARY HYPERTENSION. RIGHT VENTRICULAR SYSTOLIC PRESSURE >60 mmHg. 5. ELEVATED FILLING PRESSURES. RIGHT ATRIAL PRESSURE 15-[address] angiogram no evidence of pulmonary embolism CT angiogram [id number] Negative for pulmonary embolus. Pulmonary findings which are favored primarily chronic without definite acute process identified. Motion artifact. There is no evidence of pneumonia reduce dose of prednisone reduce dose of Lasix blood pressure is slightly low
[2024-07-09] MEDS: FUROSEMIDE 40 MG TABLET PO SCH (10:12)
[2024-07-09] MEDS: predniSONE 10 MG TAB PO SCH (10:13)
--- NOTE | 2024-07-09 11:10 | P.PN ---
Subjective Date of Service: 07/09/24 Chief Complaint: COPD exacerbation Subjective: No new changes, No C/O voiced, Tolerating diet, Ambulating, Improving Review of Systems 10-point ROS is otherwise unremarkable Physical Examination - Vital Signs Temperature: 97.8 F Blood Pressure: 96/58 Pulse: 89 Respirations: 20 Pulse Ox (%): 92 - Physical Exam General: Alert, In no apparent distress HEENT: Atraumatic, PERRLA, EOMI Neck: Supple, JVD not distended Respiratory: Clear to auscultation bilaterally, Normal air movement Cardiovascular: Regular rate/rhythm, Normal S1 S2 Gastrointestinal: Normal bowel sounds, No tenderness Musculoskeletal: No tenderness Integumentary: No rashes Neurological: Normal speech, Normal tone, Normal affect Lymphatics: No axilla or inguinal lymphadenopathy - Studies Medications List Reviewed: Yes Assessment And Plan - Current Problems (Diagnosis) (1) Acute on chronic diastolic heart failure Current Visit: Yes Status: Acute Plan: Patient with severe TR that will worsen his HF all the time, his echo shows DD, normal EF continue lasix 40 mg daily continue Aldactone 25 mg daily cut back on lopressor to 25 mg po BID as patient BP is soft continue to monitor input and output and electrolytes. (2) Tricuspid regurgitation Current Visit: Yes Status: Acute Plan: Patient is not a surgical candidate, continue medical management as above. (3) Atrial fibrillation with rapid ventricular response Onset Date: 02/05/18 Current Visit: No Status: Acute Plan: patient tele shows alternating AF vs paced. continue lopressor and eliquis.
--- NOTE | 2024-07-09 17:56 | P.PN ---
Subjective Date of Service: 07/09/24 Chief Complaint: COPD exacerbation Patient states he feels much better. He states his breathing is much better. Physical Examination - Vital Signs Temperature: 97.5 F Blood Pressure: 98/59 Pulse: 88 Respirations: 22 Pulse Ox (%): 93 - Studies Medications List Reviewed: Yes Assessment And Plan - Plan hysical Exam: GEN: Alert, oriented, NAD at rest CV: Regular rate and rhythm, 1+ bilateral ankle edema. Pulm: Nonlabored respirations on 2-3L NC at rest, bibasilar crackles. Abdomen: Nontender, nondistended, normal bowel sounds. Neuro: Normal speech, normal affect Problem List: Acute hypoxic respiratory failure; multifactorial secondary to COPD exacerbation Acute on chronic diastolic CHF Severe Tricuspid Regurgitation Atrial fibrillation (not on anticoagulation); s/p watchman and pacemaker Hypertension Hx of CAD s/p PCI (2003) Hx of GI Bleed secondary to bleeding AVM Hx of iron deficiency anemia hx of DVT s/p IVC filter (2015) Plan: Acute hypoxic respiratory failure secondary to COPD exacerbation Acute on chronic diastolic CHF Severe Tricuspid Regurgitation continue oral levaquin (07/03-); deescalated from IV rocephin/azithromycin (07/02) steroids, nebs Echo (07/02), severe TR, severe pulm HTN, diastolic dysfunction, elevated filling pressure 15-20mmHG, normal 60-65% EF TERRENCE from 2017 with normal tricuspid valve, mild biatrial enlargement with normal right and left ventricular size with normal EF. +aortic valve calfication, mild to moderate mitral annular calcification and trace mitral regurgitation. TERRENCE from 2023 with moderate MR and mild . EF 40-45%. Cardiology is following. Patient is on oral Lasix, titrated to 40 mg daily continue oral Aldactone 25 mg daily Patient is considered non-surgical candidate regarding Tricuspid regurgi tation per cardio. continue PT. patient is slated for SNF placement Pulmonary input appreciated. Atrial fibrillation (not on anticoagulation); s/p watchman and pacemaker Hypertension Hx of CAD s/p PCI (2003) Hx of GI Bleed secondary to bleeding AVM Hx of iron deficiency anemia hx of DVT s/p IVC filter (2015) continue home medications VTE: Lovenox Code: Full Dispo: SNF
[2024-07-10 04:09] VITALS: TEMP 97.5
[2024-07-10 05:56] LABS: Absolute Eosinophils 0.1 K/uL (0-0.5); Absolute Lymphocytes (CBC) 0.4 K/uL (0.7-4.9); Absolute Monocytes 0.6 K/uL (0.1-1.3); Absolute Neutrophil 9.8 K/uL (1.8-8.0); Basophils % 0.1 % (0-1.3); Eosinophils % 0.7 % (0-4.4); Hematocrit 31.2 % (39.6-49.0); Hemoglobin 10.7 g/dL (13.6-17.9); Lymphocytes % 3.8 % (15.3-44.8); MCH 34.4 pg (27.0-35.0); MCHC 34.1 g/dL (32.0-36.0); MCV 100.7 fL (80-100); Monocytes % 5.7 % (3.3-12.3); Neutrophils % 89.7 % (41.7-73.7); Nucleated RBC Absolute Count 0.1 (0-0); Nucleated Red Blood Cells % 0.4 % (0-0); Platelets 122 thou/uL (152-406)
[2024-07-10 06:13] LABS: Anion Gap 7.2 mEq/L (5.0-15.0); Potassium 4.2 mEq/L (3.5-5.1)
[2024-07-10 10:04] LABS: Anisocytosis SLIGHT; Blood Morphology Comment NOTED (NOT SEEN); Platelet Estimate ADEQ; White Blood Cell Scan OK (OK)
[2024-07-10 10:05] LABS: Macrocytosis SLIGHT; Polychromasia SLIGHT
--- NOTE | 2024-07-10 10:24 | P.PN ---
Subjective Date of Service: 07/10/24 Chief Complaint: COPD exacerbation Subjective: No new changes, No C/O voiced, Tolerating diet, Ambulating, Improving Review of Systems 10-point ROS is otherwise unremarkable Physical Examination - Vital Signs Temperature: 97.5 F Blood Pressure: 112/68 Pulse: 77 Respirations: 20 Pulse Ox (%): 95 - Physical Exam General: Alert, In no apparent distress HEENT: Atraumatic, PERRLA, EOMI Neck: Supple, JVD not distended Respiratory: Clear to auscultation bilaterally, Normal air movement Cardiovascular: Irregular heart rate/rhythm Gastrointestinal: Normal bowel sounds, No tenderness Musculoskeletal: No tenderness Integumentary: No rashes Neurological: Normal speech, Normal tone, Normal affect Lymphatics: No axilla or inguinal lymphadenopathy - Studies Medications List Reviewed: Yes Assessment And Plan - Current Problems (Diagnosis) (1) Acute on chronic diastolic heart failure Current Visit: Yes Status: Acute Plan: Patient with severe TR that will worsen his HF all the time, his echo shows DD, normal EF continue lasix 40 mg daily continue Aldactone 25 mg daily continue Digoxin 125 mcg daily cut back on lopressor to 25 mg po BID as patient BP is soft continue to monitor input and output and electrolytes. (2) Tricuspid regurgitation Current Visit: Yes Status: Acute Plan: Patient is not a surgical candidate, continue medical management as above. (3) Atrial fibrillation with rapid ventricular response Onset Date: 02/05/18 Current Visit: No Status: Acute Plan: patient tele shows alternating AF vs paced. continue lopressor and eliquis.
[2024-07-10 10:33] VITALS: O2SAT 94
--- NOTE | 2024-07-10 12:25 | P.DS ---
Admission Date: 07/01/24 Discharge Date: 07/10/24 Disposition: TRANSFER TO [facility] Discharge Condition: FAIR Reason for Admission: COPD exacerbation Brief History of Present Illness: Ruy Mora is an 88 year old male with pmhx CAD, CHF, High Cholesterol, COPD on Home O2, Hypertension, Atrial Fib, epistaxis, GI Bleed who presents with worsening SOB that began one week ago. He reports using 3 LNC at home but needed to raise the oxygen for relief. He stated he was dizzy last night going to bed and felt like he would fall. Laboratory evaluation significant for WBC 12.7, H&H 11/33, BUN/creatinine 51/1.35, GFR 50, serum glucose 123, lactic acid 2.5, BNP 4395. Chest xray reports "Areas of mild infiltrate suspected left lung base and right upper lobe." Ruy will be admitted to hospitalist service for further evaluation and treatment. Hospital Course: Diagnosis Pneumonia Acute hypoxic respiratory failure; multifactorial secondary to COPD exacerbation Acute on chronic diastolic CHF Severe Tricuspid Regurgitation Atrial fibrillation (not on anticoagulation); s/p watchman and pacemaker Hypertension Hx of CAD s/p PCI (2003) Hx of GI Bleed secondary to bleeding AVM Hx of iron deficiency anemia hx of DVT s/p IVC filter (2015) Patient admitted to the medical floor and the following medical problems addressed: Plan: Pneumonia Acute on chronic hypoxic respiratory failure secondary to COPD exacerbation Acute on chronic diastolic CHF Severe Tricuspid Regurgitation Patient treated with IV Rocephin and azithromycin and later transition to oral Levaquin He was also treated with steroids and nebs. Of note patient has a history of chronic respiratory failure and at baseline uses 3 to 4 L of oxygen by nasal cannula. Echo (07/02), severe TR, severe pulm HTN, diastolic dysfunction, elevated filling pressure 15-20mmHG, normal 60-65% EF TERRENCE from 2017 with normal tricuspid valve, mild biatrial enlargement with normal right and left ventricular size with normal EF. +aortic valve calfication, mild to moderate mitral annular calcification and trace mitral regurgitation. TERRENCE from 2023 with moderate MR and mild . EF 40-45%. Cardiology evaluated the patient and assisted with management. He was treated with IV Lasix and transition to oral Lasix 40 mg daily Patient also treated with Aldactone 25 mg daily. Patient is considered non-surgical candidate regarding Tricuspid regurgitation per cardiology Patient now has decreased mobility. He was evaluated by physical therapy and he is planned for skilled rehab Pulmonary Dr. Kelley evaluated patient and assisted with management. Patient has been accepted to [facility] for skilled rehab. Atrial fibrillation (not on anticoagulation); s/p watchman and pacemaker Hypertension Hx of CAD s/p PCI (2003) Hx of GI Bleed secondary to bleeding AVM Hx of iron deficiency anemia hx of DVT s/p IVC filter (2015) continued home medications Vital Signs/Physical Exam: Temp Pulse Resp BP Pulse Ox 97.5 F 77 20 112/68 95 07/10/24 10:23 07/10/24 10:23 07/10/24 10:23 07/10/24 10:23 07/10/24 10:23 General: Alert, In no apparent distress, Oriented x3 HEENT: Mucous membr. moist/pink Neck: JVD not distended Respiratory: Diminished (Bilateral) Cardiovascular: Edema (Trace bilateral ankle edema), Irregular heart rate/rhythm Gastrointestinal: Normal bowel sounds, Soft and benign, Non-distended, No tenderness Musculoskeletal: No swelling Integumentary: No rashes, No cyanosis Neurological: Normal strength at 5/5 x4 extr Laboratory Data at Discharge: WBC 10.90 thou/uL (4.3-10.9) 07/10/24 05:24 Hgb 10.7 g/dL (13.6-17.9) L 07/10/24 05:24 Hct 31.2 % (39.6-49.0) L 07/10/24 05:24 Plt Count 122 thou/uL (152-406) L 07/10/24 05:24 PT 14.2 SECONDS (10.0-13.0) H 07/01/24 11:25 INR 1.26 07/01/24 11:25 APTT 29.6 SECONDS (24.3-36.9) 07/01/24 11:25 Sodium 137 mEq/L (136-145) 07/10/24 05:24 Potassium 4.2 mEq/L (3.5-5.1) 07/10/24 05:24 BUN 40 mg/dL (7-18) H 07/10/24 05:24 Creatinine 0.98 mg/dL (0.70-1.30) 07/10/24 05:24 Glucose 92 mg/dL (74-106) 07/10/24 05:24 Phosphorus 2.9 mg/dL (2.5-4.9) 07/08/24 05:03 Magnesium 2.3 mg/dL (1.6-2.4) 07/09/24 06:15 Total Bilirubin 1.0 mg/dL (0.2-1.0) 07/01/24 11:25 AST 32 U/L (15-37) 07/01/24 11:25 ALT 46 U/L (16-61) 07/01/24 11:25 Alkaline Phosphatase 92 U/L (45-117) 07/01/24 11:25 Home Medications: Allopurinol 100 mg PO DAILY 08/26/23 Digoxin [Lanoxin*] 1 tab PO DAILY 08/26/23 Fluticasone/Umeclidin/Vilanter [Trelegy Ellipta 100-62.5-25] 1 puff IN DAILY 08/26/23 Gabapentin [Neurontin] 600 mg PO BID 08/26/23 Pravastatin Sodium 80 mg PO BEDTIME 08/26/23 Tamsulosin [Flomax*] 1 cap PO DAILY 08/26/23 Acetaminophen [Tylenol*] 650 mg PO Q4HP PRN tab 07/10/24 Furosemide [Lasix*] 40 mg PO DAILY tab 07/10/24 Hydrocodone 5/APAP 325 [Diboll 5/325*] 1 tab PO Q12H PRN #8 tab 07/10/24 Ipratropium Neb [Atrovent*] 0.5 mg NEB TIDRESP amp 07/10/24 Levalbuterol [Xopenex*] 0.63 mg NEB TIDRESP PRN vial 07/10/24 Metoprolol Tartrate [Lopressor*] 25 mg PO BID tab 07/10/24 Spironolactone [Aldactone*] 25 mg PO DAILY tab 07/10/24 predniSONE [Deltasone*] 10 mg PO DAILY tab 07/10/24 New Medications: Hydrocodone 5/APAP 325 [Diboll 5/325*] 1 tab PO Q12H PRN #8 tab PRN Reason: Pain Scale 8-10 (Severe) Physician Discharge Instructions: Physician discharge instructions: Patient presented with worsening shortness of breath, notably SPO2 desatting to 70s on 4L nasal cannula upon triage. Suspect multifactorial etiology secondary to combination of acute on chronic COPD exacerbation and suspected bilateral pneumonia. Chest xray 07/01 noted areas of mild infiltrate suspected left lung base and right upper lobe. Dr. Kelley, pulm was consulted. Patient was started on IV antibiotics, IV steroids, nebs, and had improvement of his symptoms. Blood and sputum cultures have been without growth since 07/01. IV azithromycin and rocephin were deescalated to oral levaquin and patient continued to improve. Patient was feeling better, breathing more comfortably on his home oxygen settings (3L), remained afebrile without leukocytosis for > 48 hours, and was deemed stable for discharge. Medications: Follow up: PCP 3-5 days Please call to schedule / confirm appointments Diet: AHA Activity: Fall precautions Followup: Alfonso Kelley MD [ACTIVE - CAN ADMIT] - 1-2 Weeks Armin Myles MD [ACTIVE - CAN ADMIT] - 1-2 Weeks Ade Rosales MD [Primary Care Provider] - 1-2 Weeks Time spent managing pt's care (in minutes): 42
[2024-07-10 12:59] VITALS: BP 100/60
[2024-07-10] MEDS ORDERED: METOPROLOL TAR 25 MG TAB PO SCH (21:00)
== END 2024-07-10 15:56 | DRG 871 ==
LOC: ER 11:01 → ERHOLD 13:19 → 2ND 15:20
PROVIDERS: ADMIT Internal Medicine; ATTEND Internal Medicine
DX: A41.9 Sepsis, unspecified organism (principal); I50.33 Acute on chronic diastolic (congestive) heart failure; J18.9 Pneumonia, unspecified organism; J96.21 Acute and chronic respiratory failure with hypoxia; J44.1 Chronic obstructive pulmonary disease with (acute) exacerbation; J44.0 Chronic obstructive pulmonary disease with (acute) lower respiratory infection; R64 Cachexia; I11.0 Hypertensive heart disease with heart failure; I48.91 Unspecified atrial fibrillation; E78.00 Pure hypercholesterolemia, unspecified; I27.20 Pulmonary hypertension, unspecified; I07.1 Rheumatic tricuspid insufficiency; I25.10 Atherosclerotic heart disease of native coronary artery without angina pectoris; R04.0 Epistaxis; Z88.8 Allergy status to other drugs, medicaments and biological substances; Z68.26 Body mass index [BMI] 26.0-26.9, adult; Z86.718 Personal history of other venous thrombosis and embolism; Z96.642 Presence of left artificial hip joint; Z79.899 Other long term (current) drug therapy
CPT/HCPCS: 36415; 71045; 71275; 80048; 80053; 81003; 83605; 83735; 83880; 84100; 84145; 85025; 85610; 85730; 87040; 93005; 93306; 96365; 96366; 96375; 97110; 97116; 97161; 97530; 99285; J0696; J1644; J1650; J2919; J7030; J7050; J7512; J7613; J7614; J7644; Q9967

== ENCOUNTER 2024-07-16 13:41 | Emergency (ER) | payer OTHER ==
[2024-07-16] MEDS ORDERED: OXYMETAZOLINE HCL 0.05% 30ML NAS ONE (14:20)
[2024-07-16 15:00] LABS: Absolute Lymphocytes (CBC) 0.1 K/uL (0.7-4.9); Absolute Monocytes 0.3 K/uL (0.1-1.3); Absolute Neutrophil 6.8 K/uL (1.8-8.0); Basophils % 0.2 % (0-1.3); Eosinophils % 0.1 % (0-4.4); Hematocrit 26.5 % (39.6-49.0); Lymphocytes % 0.9 % (15.3-44.8); MCH 34.2 pg (27.0-35.0); MCHC 33.9 g/dL (32.0-36.0); MCV 100.6 fL (80-100); MPV 8.3 fL (7.6-11.3); Monocytes % 4.2 % (3.3-12.3); Neutrophils % 94.6 % (41.7-73.7); Platelets 70 thou/uL (152-406); RBC Red Blood Cell Count 2.63 M/uL (4.33-5.43); Red Cell Distribution Width 17.8 % (12.1-15.2)
[2024-07-16 15:15] LABS: Anion Gap 9.8 mEq/L (5.0-15.0); Potassium 3.8 mEq/L (3.5-5.1)
--- NOTE | 2024-07-16 16:56 | ER ---
Nurse's Notes [facility] Name: Ruy Mora Age: 88 yrs Sex: Male : 1935 Arrival Date: 07/16/2024 Time: 13:41 Bed 15 Private MD: Diagnosis: Epistaxis Presentation: 07/16 14:15 Chief complaint: EMS states: they were toned out to [facility] in [place] for kc6 spontaneous epistaxis with an SPO2 off 70% on RA. upon EMS arrival to facility pt was mouth breathing and pinching his nose with an SPO2 in the 70's. on arrival to the ED pt is holding gauze and a NRB mask to his face. pt appears to be in afib on the monitor with an SPO2 of 77%. Dr. So at bedside. verbal orders to admin Afrin intranasally now. Coronavirus screen: At this time, the client does not indicate any symptoms associated with coronavirus-19. Ebola Screen: No symptoms or risks identified at this time. Initial Sepsis Screen: Does the patient meet any 2 criteria? No. Patient's initial sepsis screen is negative. Does the patient have a suspected source of infection? No. Patient's initial sepsis screen is negative. Risk Assessment: Do you want to hurt yourself or someone else? Patient reports no desire to harm self or others. Onset of symptoms was July 16, 2024. Care prior to arrival: Medication(s) given: Normal saline infusion, 1000 mL, IV initiated. 20 GA, in the left forearm, Glucose check: 130 Oxygen administered. via a non-rebreather mask. 14:15 Method Of Arrival: EMS: [place] [id number] 14:15 Method Of Arrival: EMS: [place] [id number] 14:15 Acuity: LUTHER 2 kc6 Triage Assessment: 20:45 Respiratory: Onset: The symptoms/episode began/occurred suddenly. kd4 Historical: - Allergies: 14:26 Plavix; kc6 - PMHx: 14:26 Atrial Fib; CAD; CHF; COPD; GI Bleed; High Cholesterol; Home O2 as needed; kc6 Hypertension; epistaxis (Hypertension); - Immunization history:: Adult Immunizations up to date. - Infectious Disease History:: Denies. - Social history:: Smoking status: Patient denies any tobacco usage or history of. Screenin:29 [facility] ED Fall Risk Assessment (Adult) History of falling in the last 3 months, kc6 including since admission No falls in past 3 months (0 pts) Confusion or Disorientation No (0 pts) Intoxicated or Sedated No (0 pts) Impaired Gait Yes (1 pt) Mobility Assist Device Used Yes (1 pt) Altered Elimination No (0 pt) Score/Fall Risk Level 0 - 2 = Low Risk Oriented to surroundings, Maintained a safe environment, Educated pt \T\ family on fall prevention, incl call for assistance when getting out of bed. Abuse screen: Denies threats or abuse. Denies injuries from another. Nutritional screening: No deficits noted. Tuberculosis screening: No symptoms or risk factors identified. Assessment: 14:30 General: Appears in no apparent distress. uncomfortable, well groomed, well developed, kc6 Behavior is calm, cooperative, appropriate for age. Pain: Denies pain. Neuro: Level of Consciousness is awake, alert, obeys commands, Oriented to person, place, time, situation, Appropriate for age. Cardiovascular: Denies chest pain, Capillary refill < 3 seconds Rhythm is atrial fibrillation. Respiratory: Reports shortness of breath at rest on exertion Airway is patent Trachea midline Respiratory effort is even, labored, gasping, using tripod position, Respiratory pattern is symmetrical, tachypnea Breath sounds with crackles bilaterally. GI: No signs and/or symptoms were reported involving the gastrointestinal system. : No signs and/or symptoms were reported regarding the genitourinary system. Urine is clear. EENT: Nares with bleeding noted bilaterally Oral mucosa is moist. Good dentition noted. Derm: Skin is fragile, is thin, with poor turgor Skin is dry, Skin is pale, Skin temperature is warm Bruising that is dark purple, on right arm, left arm, right leg and left leg. Musculoskeletal: No signs and/or symptoms reported regarding the musculoskeletal system. Circulation, motion, and sensation intact. Range of motion: intact in all extremities. 15:17 Reassessment: Patient appears in no apparent distress at this time. No changes from kc6 previously documented assessment. Patient and/or family updated on plan of care and expected duration. Pain level reassessed. Patient is alert, oriented x 3, equal unlabored respirations, skin warm/dry/pink. Patient states feeling better. Patient states symptoms have improved. 16:07 Reassessment: Patient appears in no apparent distress at this time. No changes from [facility] previously documented assessment. Patient and/or family updated on plan of care and expected duration. Pain level reassessed. Patient is alert, oriented x 3, equal unlabored respirations, skin warm/dry/pink. 17:07 Reassessment: Patient appears in no apparent distress at this time. No changes from [facility] previously documented assessment. Patient and/or family updated on plan of care and expected duration. Pain level reassessed. Patient is alert, oriented x 3, equal unlabored respirations, skin warm/dry/pink. 17:48 Reassessment: spoke with ANDREI Saavedra at [facility]. states she will arrange [facility] transport and call back with an ETA. 18:31 Reassessment: Patient appears in no apparent distress at this time. No changes from 6 previously documented assessment. Patient and/or family updated on plan of care and expected duration. Pain level reassessed. Patient is alert, oriented x 3, equal unlabored respirations, skin warm/dry/pink. Vital Signs: 14:15 BP 115 / 52; Pulse 77; Resp 34 S; Temp 97.8(A); Pulse Ox 100% on Non-rebreather mask; kc6 14:36 BP 102 / 63; Pulse 79; Resp 22 S; Pulse Ox 49% on 4 lpm NC; 6 15:01 BP 97 / 53; Pulse 70; Resp 19 S; Pulse Ox 97% on 4 lpm NC; 6 15:16 BP 100 / 53; Pulse 76; Resp 19 S; Pulse Ox 98% on 4 lpm NC; kc6 16:07 BP 112 / 73; Pulse 80; Resp 20 S; Pulse Ox 97% on 4 lpm NC; kc6 18:31 BP 101 / 62; Pulse 78; Resp 19 S; Pulse Ox 98% on R/A; kc6 19:13 BP 106 / 58; Pulse 77; Resp 18; Temp 98.1; Pulse Ox 94% on 2.5 lpm NC; Pain 0/10; kd4 20:40 BP 106 / 72; Pulse 74; Resp 20; Temp 98.3; Pulse Ox 96% on 2 lpm NC; Pain 0/10; kd4 19:13 Pain Scale: Adult kd4 20:40 Pain Scale: Adult kd4 Vitals: 20:42 Cardiac Rhythm Assessment Atrial fibrillation. kd4 Dubois Coma Score: 20:40 Eye Response: spontaneous(4). Motor Response: obeys commands(6). Verbal Response: kd4 oriented(5). Total: 15. ED Course: 13:41 Assisted with urinal. kc6 14:15 Patient arrived in ED. kc6 14:21 Yobani So MD is Attending Physician. jj9 14:26 Triage completed. kc6 14:26 Arm band placed on. kc6 14:28 Patient has correct armband on for positive identification. Placed in gown. Bed in low kc6 position. Call light in reach. Side rails up X2. front desk monitor on. Pulse ox on. NIBP on. Door closed. Noise minimized. Lights dimmed. Warm blanket given. Pillow given. Verbal reassurance given. 14:28 Maintain EMS IV. Dressing intact. Good blood return noted. Site clean \T\ dry. Gauge \T\ alfie 6 site: 20G LFA. Flushed with 10 mL NS. Oxygen administration via non-rebreather mask \T\ 15L/min. 14:33 Zenia Jiménez, ANDREI is Primary Nurse. 6 15:00 Initial lab(s) drawn, by md, sent to lab. Inserted saline lock: 18 gauge in right kc6 antecubital area, using aseptic technique. Blood collected. Flushed with 10 mL NS. 18:45 Assisted with urinal. kc6 19:10 Report given to ANDREI Jameson. kc 20:42 Provided Education on: D/c instruction, report to EMS, day shift RN gave report to [facility] facility.. 20:42 IV discontinued, intact. kd4 20:45 No provider procedures requiring assistance completed. kd4 Administered Medications: 14:29 Drug: Oxymetazoline Intranasal Drops (0.05 %) 1 sprays Intranasal once; verbal with kc6 read back from Dr. So Route: Intranasal; Site: both nares; 16:15 Follow up: Response: No adverse reaction kc Medication: 20:42 VIS not applicable for this client. kd4 Output: 20:42 Urine: 600ml (Voided); Total: 600ml. kd4 Outcome: 16:55 Discharge ordered by . jj9 20:42 Discharged to group home. Report called to Report called to facility by am RN kd4 20:42 Condition: stable 20:42 Discharge instructions given to patient, group home, Instructed on discharge instructions, Demonstrated understanding of instructions, 20:46 Patient left the ED. kd4 Signatures: Zenia Jiménez, RN RN kc6 Trino Hilton RN RN kd4 Yobani So MD MD jj9 Corrections: (The following items were deleted from the chart) 14:36 14:15 Chief complaint: EMS states: they were toned out to [facility] in [place] kc6 for epistaxis with an SPO2 off 70% on RA. upon EMS arrival pt hold gauze to his nose with a NRB on kc6 15:17 14:30 EENT: Nares with bleeding noted on left kc6 kc6
--- NOTE | 2024-07-16 16:56 | EDPHYS ---
Physician Documentation [facility] Name: Ruy Mora Age: 88 yrs Sex: Male : 1935 Arrival Date: 07/16/2024 Time: 13:41 Bed 15 Private MD: ED Physician Yobani So HPI: 07/16 16:32 The patient presents with a nose bleed, that is apparently anterior, from the left nare.jj9 16:33 88-year-old man comes emergency department for evaluation of nosebleed starting this jj9 morning. The patient reports history of recurrent nosebleeds. He denies any other problem. Past medical history significant for A-fib, CAD, CHF, COPD, high cholesterol, home O2 as needed and hypertension. The patient appears in no distress there is no active bleeding upon initial evaluation in the emergency department.. Historical: - Allergies: 14:26 Plavix; kc6 - PMHx: 14:26 Atrial Fib; CAD; CHF; COPD; GI Bleed; High Cholesterol; Home O2 as needed; kc6 Hypertension; epistaxis (Hypertension); - Immunization history:: Adult Immunizations up to date. - Infectious Disease History:: Denies. - Social history:: Smoking status: Patient denies any tobacco usage or history of. ROS: 16:34 Constitutional: Negative for fever, chills, and weight loss, Eyes: Negative for injury, jj9 pain, redness, and discharge, ENT: Negative for injury, pain, and discharge, Neck: Negative for injury, pain, and swelling, Cardiovascular: Negative for chest pain, palpitations, and edema, Respiratory: Negative for shortness of breath, cough, wheezing, and pleuritic chest pain, Abdomen/GI: Negative for abdominal pain, nausea, vomiting, diarrhea, and constipation, Back: Negative for injury and pain, : Negative for injury, bleeding, discharge, and swelling, MS/Extremity: Negative for injury and deformity, Skin: Negative for injury, rash, and discoloration, Neuro: Negative for headache, weakness, numbness, tingling, and seizure, Psych: Negative for depression, anxiety, suicide ideation, homicidal ideation, and hallucinations, Allergy/Immunology: Negative for hives, rash, and allergies, Endocrine: Negative for neck swelling, polydipsia, polyuria, polyphagia, and marked weight changes, Hematologic/Lymphatic: Negative for swollen nodes, abnormal bleeding, and unusual bruising, Exam: 16:36 Constitutional: This is a well developed, well nourished patient who is awake, alert, jj9 and in no acute distress. Head/Face: Normocephalic, atraumatic. Eyes: Pupils equal round and reactive to light, extra-ocular motions intact. Lids and lashes normal. Conjunctiva and sclera are non-icteric and not injected. Cornea within normal limits. Periorbital areas with no swelling, redness, or edema. ENT: dry blood left nostril Neck: Trachea midline, no thyromegaly or masses palpated, and no cervical lymphadenopathy. Supple, full range of motion without nuchal rigidity, or vertebral point tenderness. No Meningismus. Chest/axilla: Normal chest wall appearance and motion. Nontender with no deformity. No lesions are appreciated. Cardiovascular: Regular rate and rhythm with a normal S1 and S2. No gallops, murmurs, or rubs. Normal PMI, no JVD. No pulse deficits. Respiratory: Lungs have equal breath sounds bilaterally, clear to auscultation and percussion. No rales, rhonchi or wheezes noted. No increased work of breathing, no retractions or nasal flaring. Abdomen/GI: Soft, non-tender, with normal bowel sounds. No distension or tympany. No guarding or rebound. No evidence of tenderness throughout. Back: No spinal tenderness. No costovertebral tenderness. Full range of motion. Skin: Warm, dry with normal turgor. Normal color with no rashes, no lesions, and no evidence of cellulitis. MS/ Extremity: Pulses equal, no cyanosis. Neurovascular intact. Full, normal range of motion. Neuro: Awake and alert, GCS 15, oriented to person, place, time, and situation. Cranial nerves II-XII grossly intact. Motor strength 5/5 in all extremities. Sensory grossly intact. Cerebellar exam normal. Normal gait. Psych: Awake, alert, with orientation to person, place and time. Behavior, mood, and affect are within normal limits. Vital Signs: 14:15 BP 115 / 52; Pulse 77; Resp 34 S; Temp 97.8(A); Pulse Ox 100% on Non-rebreather mask; kc6 14:36 BP 102 / 63; Pulse 79; Resp 22 S; Pulse Ox 49% on 4 lpm NC; kc6 15:01 BP 97 / 53; Pulse 70; Resp 19 S; Pulse Ox 97% on 4 lpm NC; kc6 15:16 BP 100 / 53; Pulse 76; Resp 19 S; Pulse Ox 98% on 4 lpm NC; kc6 16:07 BP 112 / 73; Pulse 80; Resp 20 S; Pulse Ox 97% on 4 lpm NC; kc6 18:31 BP 101 / 62; Pulse 78; Resp 19 S; Pulse Ox 98% on R/A; kc6 19:13 BP 106 / 58; Pulse 77; Resp 18; Temp 98.1; Pulse Ox 94% on 2.5 lpm NC; Pain 0/10; kd4 20:40 BP 106 / 72; Pulse 74; Resp 20; Temp 98.3; Pulse Ox 96% on 2 lpm NC; Pain 0/10; kd4 19:13 Pain Scale: Adult kd4 20:40 Pain Scale: Adult kd4 Jennings Coma Score: 20:40 Eye Response: spontaneous(4). Motor Response: obeys commands(6). Verbal Response: kd4 oriented(5). Total: 15. MDM: 14:21 Medical Screening Exam initiated jj9 16:56 Medication response: Afrin. Response to treatment: the patient's symptoms have resolved jj9 after treatment. ED course: 88-year-old man comes emergency department for evaluation of nosebleed. Afrin was applied to the emergency department with resolution of symptoms. Laboratories were done and within normal hemoglobin of 9. The patient appears in no distress and feels ready go back to the snf. He is vital signs are stable appears in no distress. The patient will be discharged home advised to follow-up with PCP continue home medications and return to the emergency department if worsening of symptoms or for any other problem. The patient understands and agrees with the plan.. 07/16 14:41 Order name: Basic Metabolic Panel; Complete Time: 16:17 9 07/16 14:41 Order name: CBC with Diff j9 07/16 18:20 Order name: CBC Smear Scan EDMS 07/16 14:41 Order name: IV Saline Lock; Complete Time: 14:48 [facility] 07/16 14:41 Order name: O2 Per Protocol; Complete Time: 14:48 j9 Administered Medications: 14:29 Drug: Oxymetazoline Intranasal Drops (0.05 %) 1 sprays Intranasal once; verbal with kc6 read back from Dr. So Route: Intranasal; Site: both nares; 16:15 Follow up: Response: No adverse reaction kc6 Disposition Summary: 07/16/24 16:55 Discharge Ordered Notes: Location: Home j9 Problem: chronic j9 Condition: Stable jj9 Diagnosis - Epistaxis jj9 Followup: jj9 - With: Private Physician - When: - Reason: Continuance of care Discharge Instructions: - Discharge Summary Sheet jj9 - Nosebleed, Adult jj9 Forms: - Medication Reconciliation Form jj9 - Antibiotic Education jj9 - Prescription Opioid Use j9 - Patient Portal Instructions j9 - Leadership Thank You Letter jj9 Signatures: Dispatcher [employer] Zenia Naik RN RN kc6 Yobani So MD MD jj9 Corrections: (The following items were deleted from the chart) 16:34 16:32 The patient presents with a nose bleed, jj9 jj9
[2024-07-16 18:19] LABS: Anisocytosis 2+; Blood Morphology Comment NOTED (NOT SEEN); Platelet Estimate ADEQ; Poikilocytosis 1+; White Blood Cell Scan OK (OK)
[2024-07-16 21:45] VITALS: BP 106/72; TEMP 98.3; O2SAT 96
== END 2024-07-16 20:46 | disposition home or self-care (01) ==
LOC: ER 13:41
DX: R04.0 Epistaxis (principal)
CPT/HCPCS: 36415; 80048; 85025; 99285

== ENCOUNTER 2024-07-18 09:57 | Inpatient (IN) | payer OTHER ==
[2024-07-18 10:59] LABS: Absolute Lymphocytes (CBC) 0.2 K/uL (0.7-4.9); Absolute Monocytes 0.3 K/uL (0.1-1.3); Absolute Neutrophil 5.1 K/uL (1.8-8.0); Basophils % 0.6 % (0-1.3); Eosinophils % 0.6 % (0-4.4); Hematocrit 26.2 % (39.6-49.0); Hemoglobin 8.8 g/dL (13.6-17.9); Lymphocytes % 3.5 % (15.3-44.8); MCH 33.7 pg (27.0-35.0); MCHC 33.8 g/dL (32.0-36.0); MCV 99.8 fL (80-100); MPV 8.9 fL (7.6-11.3); Monocytes % 4.6 % (3.3-12.3); Neutrophils % 90.7 % (41.7-73.7); Nucleated Red Blood Cells % 0.4 % (0-0); Platelets 79 thou/uL (152-406); RBC Red Blood Cell Count 2.62 M/uL (4.33-5.43); Red Cell Distribution Width 17.3 % (12.1-15.2)
[2024-07-18 11:03] LABS: PT Prothrombin Time 13.8 SECONDS (10-13.0); PTT, Activated Partial Thromb 27.7 SECONDS (27.2-37.4); Protime INR 1.22
[2024-07-18 11:13] LABS: Albumin 2.2 g/dL (3.4-5.0); Albumin/Globulin Ratio 0.5 (1.1-1.8); Anion Gap 6.1 mEq/L (5.0-15.0); Bilirubin Total 0.9 mg/dL (0.2-1.0); Globulin 4.4 g/dL (2.3-3.5); Potassium 4.1 mEq/L (3.5-5.1); Protein, Total 6.6 g/dL (6.4-8.2)
[2024-07-18 11:15] LABS: Troponin High Sensitivity 121.3 pg/mL (<58.9)
--- NOTE | 2024-07-18 11:38 | RAD REPORT ---
EXAMINATION: ONE VIEW CHEST XR CLINICAL INDICATION: Male, 88 years old.,DYSPNEA TECHNIQUE: Frontal chest projection is submitted. Examination is limited by patient positioning and t echnique. COMPARISON: 07/08/2024 FINDINGS: Stable patchy right upper to midlung airspace opacities. Mildly progressive hazy left basilar/retroca rdiac opacification with small component of effusion. No pneumothorax or right effusion. The heart is normal in size. Mediastinal contours are unremarkable. IMPRESSION: Mildly progressive left basilar opacity could reflect atelectasis or pneumonia, probably with small e ffusion
--- NOTE | 2024-07-18 12:11 | EDPHYS ---
Physician Documentation [facility] Name: Ruy Mora Age: 88 yrs Sex: Male : 1935 Arrival Date: 07/18/2024 Time: 09:57 Bed 6 Private MD: ED Physician Bishnu Barr HPI: 07/18 10:09 This 88 yrs old Male presents to ER via EMS with complaints of LOW OXYGEN. rn 10:09 The patient has shortness of breath with light activity. Onset: The symptoms/episode rn began/occurred at an unknown time. Severity of symptoms:. EMS reports sent from [facility] for low oxygen this morning. They also noted fast heart rate. Patient with a history of atrial fibrillation/COPD/pulmonary fibrosis and CHF. Patient denies any fever or current illness. Does report shortness of breath with minimal exertion. Was found to have oxygen in the 70s at [facility]. Improving on oxygen facemask care. Denies chest pain.. Historical: - Allergies: 10:00 Plavix; bp - PMHx: 10:00 Atrial Fib; COPD; CHF; epistaxis (Hypertension); CAD; GI Bleed; High Cholesterol; Home bp O2 as needed; Hypertension; - Immunization history:: Adult Immunizations up to date. - Infectious Disease History:: Denies. - Social history:: Smoking status: unknown. - Family history:: not pertinent. - Hospitalizations: : No recent hospitalization is reported. ROS: 10:09 Constitutional: Negative for fever, chills, and weight loss, Cardiovascular: Positive rn for palpitations Respiratory: Positive for shortness of breath Abdomen/GI: Negative for abdominal pain, nausea, vomiting, diarrhea, and constipation, MS/Extremity: Negative for injury and deformity, Skin: Negative for injury, rash, and discoloration, Neuro: Negative for headache, weakness, numbness, tingling, and seizure, Exam: 10:09 Constitutional: This is a well developed, well nourished patient who is awake, alert, rn and in no acute distress. Cardiovascular: Regular rate, irregular rhythm Respiratory: Mild tachypnea, diminished at bases with crackles, no wheezing Abdomen/GI: Soft, non-tender MS/ Extremity: Pulses equal, no cyanosis. Neuro: Awake and alert, GCS 15 10:13 ECG was reviewed by the Attending Physician. rn Vital Signs: 09:58 BP 107 / 61; Pulse 95; Resp 18; Temp 98; Pulse Ox 97% on 10 lpm Venturi mask; bp 10:00 BP 102 / 69; Pulse 107; Resp 20; Pulse Ox 98% ; bp MDM: 10:04 Medical Screening Exam initiated rn 12:09 Differential diagnosis: Anemia CHF exacerbation, Chronic Obstructive Pulmonary Disease rn pneumonia, Pneumothorax pulmonary edema. Data reviewed: vital signs, nurses notes, lab test result(s), EKG, radiologic studies, plain films, and as a result, I will admit patient. Consideration of Admission/Observation Patient was admitted/placed on observation. Escalation of care including admission/observation considered. Counseling: I had a detailed discussion with the patient and/or guardian regarding the historical points, exam findings, and any diagnostic results supporting the discharge/admit diagnosis, lab results, radiology results, the need for further work-up and treatment in the hospital. Response to treatment: the patient's symptoms have mildly improved after treatment, and as a result, I will admit patient. 07/18 10:05 Order name: Blood Culture Adult (2) rn 07/18 10:05 Order name: CBC with Diff; Complete Time: 12:46 rn 07/18 10:05 Order name: CMP; Complete Time: 11:33 rn 07/18 10:05 Order name: Lactate w/ 2H reflex if indic.; Complete Time: 11:33 rn 07/18 10:05 Order name: Protime (+inr); Complete Time: 11:33 rn 07/18 10:05 Order name: Ptt, Activated; Complete Time: 11:33 rn 07/18 10:05 Order name: BNP; Complete Time: 11:33 rn 07/18 10:05 Order name: Troponin High Sensitivity; Complete Time: 11:33 rn 07/18 12:23 Order name: CBC Smear Scan; Complete Time: 12:46 EDME 07/18 12:56 Order name: Procalcitonin EDME 07/18 12:56 Order name: Procalcitonin EDME 07/18 12:57 Order name: Basic Metabolic Panel EDME 07/18 12:57 Order name: Basic Metabolic Panel EDME 07/18 12:57 Order name: Basic Metabolic Panel EDME 07/18 12:57 Order name: Basic Metabolic Panel EDME 07/18 12:57 Order name: Basic Metabolic Panel EDME 07/18 12:57 Order name: Basic Metabolic Panel EDMS 07/18 12:57 Order name: CBC with Automated Diff EDMS 07/18 12:57 Order name: CBC with Automated Diff EDMS 07/18 12:57 Order name: CBC with Automated Diff EDMS 07/18 12:57 Order name: CBC with Automated Diff EDMS 07/18 12:57 Order name: CBC with Automated Diff EDMS 07/18 12:57 Order name: CBC with Automated Diff EDMS 07/18 12:57 Order name: Digoxin Level EDMS 07/18 12:57 Order name: Digoxin Level EDMS 07/18 12:57 Order name: T4 Free EDMS 07/18 12:57 Order name: T4 Free EDMS 07/18 12:57 Order name: Thyroid Stimulating Hormone EDMS 07/18 12:57 Order name: Thyroid Stimulating Hormone EDMS 07/18 12:57 Order name: Troponin High Sensitivity EDMS 07/18 12:57 Order name: Troponin High Sensitivity EDMS 07/18 12:57 Order name: Troponin High Sensitivity EDMS 07/18 10:05 Order name: Chest Single View XRAY; Complete Time: 11:41 rn 07/18 12:57 Order name: Echo with Doppler EDMS 07/18 12:57 Order name: Physical Therapy Consult EDMS 07/18 10:05 Order name: Accucheck; Complete Time: 10:12 rn 07/18 10:05 Order name: Cardiac monitoring; Complete Time: 10:12 rn 07/18 10:05 Order name: EKG - Nurse/Tech; Complete Time: 10:12 rn 07/18 10:05 Order name: IV Saline Lock - Large Bore; Complete Time: 10:46 rn 07/18 10:05 Order name: Labs collected and sent; Complete Time: 10:46 rn 07/18 10:05 Order name: O2 Per Protocol; Complete Time: 10:12 rn 07/18 10:05 Order name: O2 Sat Monitoring; Complete Time: 10:12 rn 07/18 10:05 Order name: Vital Signs; Complete Time: 10:12 rn EC:13 Rate is 81 beats/min. Rhythm is irregularly irregular. QRS [place] is Normal. MD interval rn is normal. QRS interval is normal. QT interval is normal. No Q waves. T waves are Normal. No ST changes noted. Clinical impression: Atrial Fibrillation. Interpreted by me. Reviewed by me. Administered Medications: 12:19 Drug: Levalbuterol Inhalation 1.25 mg Inhalation once Route: Inhalation; cm10 13:00 Drug: Piperacillin-Tazobactam IVPB 3.375 grams IVPB once over 60 mins; (mix in NS 100 bp mL) Route: IVPB; Infused Over: 60 mins; Site: right antecubital; 13:17 Follow up: IV Status: Completed infusion bp Disposition Summary: 07/18/24 12:11 Hospitalization Ordered Notes: Hospitalization Status: Inpatient Admission rn Provider: Speedy Barr rn Location: Telemetry/MedSurg (Inpatient) rn Condition: Stable rn Problem: new rn Symptoms: are unchanged rn Bed/Room Type: Standard rn Room Assignment: 211(07/18/24 13:10) bc6 Diagnosis - Hypoxemia rn - Chronic atrial fibrillation rn - Acute pulmonary edema rn Forms: - Medication Reconciliation Form rn - SBAR form rn - Leadership Thank You Letter rn Signatures: Dispatcher [employer] EDMS Bishnu Barr MD MD rn Attema, Lee, EARTH MOVING TECHNICIAN-C EARTH MOVING TECHNICIAN-Cla1 Gonzalez Jenkins RN RN bp Tania [place] bc6 Margaret Rogers RN RN cm10 Corrections: (The following items were deleted from the chart) 13:10 12:11 rn bc6
--- NOTE | 2024-07-18 12:11 | ER ---
Nurse's Notes [facility] Name: Ruy Mora Age: 88 yrs Sex: Male : 1935 Arrival Date: 07/18/2024 Time: 09:57 Bed 6 Private MD: Diagnosis: Hypoxemia;Chronic atrial fibrillation;Acute pulmonary edema Presentation: 07/18 09:58 Chief complaint: EMS states: LOW O2 WITH MORNING VITALS AT [facility], NO bp COMPLAINTS. Coronavirus screen: At this time, the client does not indicate any symptoms associated with coronavirus-19. Ebola Screen: No symptoms or risks identified at this time. Initial Sepsis Screen: Does the patient meet any 2 criteria? No. Patient's initial sepsis screen is negative. Does the patient have a suspected source of infection? No. Patient's initial sepsis screen is negative. Risk Assessment: Do you want to hurt yourself or someone else? Patient reports no desire to harm self or others. Onset of symptoms was July 18, 2024. Care prior to arrival: IV initiated. 20 GA, in the right antecubital area, Glucose check: 146. 09:58 Method Of Arrival: EMS: [facility] bp 09:58 Acuity: LUTHER 3 bp Triage Assessment: 10:00 General: Appears in no apparent distress. Behavior is cooperative, appropriate for age, bp anxious. Pain: Denies pain. EENT: No deficits noted. Neuro: Level of Consciousness is awake, alert, obeys commands, Oriented to Appropriate for age. Cardiovascular: Rhythm is atrial fibrillation. Respiratory: Breath sounds with wheezes bilaterally. GI: No signs and/or symptoms were reported involving the gastrointestinal system. : No signs and/or symptoms were reported regarding the genitourinary system. Derm: No deficits noted. Musculoskeletal: No deficits noted. Historical: - Allergies: 10:00 Plavix; bp - PMHx: 10:00 Atrial Fib; COPD; CHF; epistaxis (Hypertension); CAD; GI Bleed; High Cholesterol; Home bp O2 as needed; Hypertension; - Immunization history:: Adult Immunizations up to date. - Infectious Disease History:: Denies. - Social history:: Smoking status: unknown. - Family history:: not pertinent. - Hospitalizations: : No recent hospitalization is reported. Screenin:[facility] ED Fall Risk Assessment (Adult) History of falling in the last 3 months, bp including since admission No falls in past 3 months (0 pts) Confusion or Disorientation No (0 pts) Intoxicated or Sedated No (0 pts) Impaired Gait Yes (1 pt) Mobility Assist Device Used No (0 pt) Altered Elimination No (0 pt) Score/Fall Risk Level 0 - 2 = Low Risk Oriented to surroundings. Abuse screen: Denies threats or abuse. Denies injuries from another. Nutritional screening: No deficits noted. Tuberculosis screening: No symptoms or risk factors identified. Assessment: 10:00 General: Appears in no apparent distress. Behavior is calm, cooperative, appropriate bp for age. 13:17 Reassessment: REPORT FAXED TO [facility] 221. bp Vital Signs: 09:58 BP 107 / 61; Pulse 95; Resp 18; Temp 98; Pulse Ox 97% on 10 lpm Venturi mask; bp 10:00 BP 102 / 69; Pulse 107; Resp 20; Pulse Ox 98% ; bp ED Course: 09:58 Patient arrived in ED. bp 10:00 Triage completed. bp 10:00 Arm band placed on. bp 10:03 Bishnu Barr MD is Attending Physician. ec2 10:06 Gonzalez Jenkins, ANDREI is Primary Nurse. bp 10:15 Warm blanket given. am7 10:15 EKG done, by ED staff, reviewed by Bishnu Barr MD. am7 10:15 Initial lab(s) drawn, by me, sent to lab. First set of blood cultures drawn by me. bp Maintain EMS IV. Dressing intact. Good blood return noted. Site clean \T\ dry. Gauge \T\ site: 20 RAC. Flushed with 10 mL NS. 10:27 Chest Single View XRAY In Process Unspecified. EDMS 12:10 Speedy Barr MD is Hospitalizing Provider. rn 13:20 Patient has correct armband on for positive identification. bp Administered Medications: 12:19 Drug: Levalbuterol Inhalation 1.25 mg Inhalation once Route: Inhalation; cm10 13:00 Drug: Piperacillin-Tazobactam IVPB 3.375 grams IVPB once over 60 mins; (mix in NS 100 bp mL) Route: IVPB; Infused Over: 60 mins; Site: right antecubital; 13:17 Follow up: IV Status: Completed infusion bp Outcome: 12:11 Decision to Hospitalize by Provider. rn 15:27 Patient left the ED. aa5 Signatures: Dispatcher [employer] Bishnu Lowery MD MD rn Calderon, Audri, RN RN aa5 Gonzalez Jenkins RN RN bp Martinez, Clarissa, RN RN cm10 Niko Vega MD MD ec2 Bozena Garber 7
[2024-07-18] MEDS ORDERED: LEVALBUTEROL 1.25 MG/3 ML NEB ONE (12:12)
[2024-07-18 12:22] LABS: White Blood Cell Scan OK (OK)
[2024-07-18 12:23] LABS: Anisocytosis 1+; Blood Morphology Comment NOTED (NOT SEEN); Macrocytosis 1+; Platelet Estimate DECR; Polychromasia SLIGHT
[2024-07-18] MEDS ORDERED: POLYETHYL GLY 3350 17 GM/DOSE PO PRN (12:54)
[2024-07-18] MEDS ORDERED: ACETAMINOPHEN 500 MG TAB PO PRN (12:54)
[2024-07-18] MEDS ORDERED: PIPERACIL/TAZO 3.375 GM VIAL IV ONE (13:10)
[2024-07-18] MEDS ORDERED: NA CHLORIDE 0.9% 100 ML ONE (13:10)
--- NOTE | 2024-07-18 15:37 | P.HP ---
Certification for Inpatient Patient admitted to: Inpatient With expected LOS: >2 Midnights Patient will require the following post-hospital care: None Practitioner: I am a practitioner with admitting privileges, knowledge of patient current condition, hospital course, and medical plan of care. Services: Services provided to patient in accordance with Admission requirements found in Title 42 Section 412.3 of the Code of Federal Regulations Patient History Date of Service: 07/18/24 Reason for admission: CHF exacerbation History of Present Illness: 88-year-old male with history of chronic diastolic congestive heart failure, severe tricuspid regurgitation, atrial fibrillation status post Watchman procedure, COPD on chronic home O2, hypertension, CAD, history of GI bleeding, iron deficiency anemia, history of DVTs presents to the emergency department chief complaint of hypoxia, dyspnea. He was recently seen in our hospital and admitted from 07/01 until 07/10. He was discharged to a fdc facility at that time, today he was noted to be more hypoxic on nasal cannula oxygen and EMS was called to evaluate. Upon arrival to the emergency department patient was requiring facemask oxygen his labs were significant for an elevated high sensitive troponin of 121.3 BNP of 3857 white blood cell count 5.6 and hemoglobin of 8.8. Of note he does deal with nosebleeds periodically and is very sensitive to blood thinners as well as nasal cannula oxygen. During his last hospitalization he was evaluated by cardiology who states that he is not a candidate for any intervention on his tricuspid valve in regards to severe tricuspid regurgitation, he also deals with CHF and advanced COPD. Chest x-ray showed mildly progressive left basilar opac ity which could reflect atelectasis or pneumonia probably with a small effusion. He has been afebrile with no white count, doubt infectious process at this at this time patient admitted for further management of COPD/CHF exacerbation with consult for cardiology and pulmonology Allergies clopidogrel bisulfate [From Plavix] Allergy (Mild, Verified 08/26/23 22:12) Hives Home Medications: Allopurinol 100 mg PO DAILY 08/26/23 Digoxin [Lanoxin*] 1 tab PO DAILY 08/26/23 Fluticasone/Umeclidin/Vilanter [Trelegy Ellipta 100-62.5-25] 1 puff IN DAILY 08/26/23 Gabapentin [Neurontin] 600 mg PO BID 08/26/23 Pravastatin Sodium 80 mg PO BEDTIME 08/26/23 Tamsulosin [Flomax*] 1 cap PO DAILY 08/26/23 Acetaminophen [Tylenol*] 650 mg PO Q4HP PRN tab 07/10/24 Furosemide [Lasix*] 40 mg PO DAILY tab 07/10/24 Hydrocodone 5/APAP 325 [[place] 5/325*] 1 tab PO Q12H PRN #8 tab 07/10/24 Ipratropium Neb [Atrovent*] 0.5 mg NEB TIDRESP amp 07/10/24 Levalbuterol [Xopenex*] 0.63 mg NEB TIDRESP PRN vial 07/10/24 Metoprolol Tartrate [Lopressor*] 25 mg PO BID tab 07/10/24 Spironolactone [Aldactone*] 25 mg PO DAILY tab 07/10/24 predniSONE [Deltasone*] 10 mg PO DAILY tab 07/10/24 - Past Medical/Surgical History Has patient received pneumonia vaccine in the past: Yes Diabetic: No -: DVT -: Atrial fib no anticoagulation -: COPD -: GI Bleed -: Hypertension -: CHF -: CAD -: High Cholestol -: Severe tricuspid regurgitation -: 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 -: katie filter Psychosocial/ Personal History: Currently at fdc facility, otherwise lives with his at home - Social History Smoking Status: Never smoker Alcohol use: Yes CD- Drugs: No Caffeine use: Yes Place of Residence: Home Review of Systems 10-point ROS is otherwise unremarkable Respiratory: Shortness of Breath Physical Examination - Physical Exam General: Alert, In no apparent distress, Oriented x3 HEENT: Atraumatic, PERRLA, EOMI Neck: Supple, 2+ carotid pulse no bruit, No LAD Respiratory: Diminished Cardiovascular: Normal S1 S2, Irregular heart rate/rhythm (Rate controlled A- fib) Gastrointestinal: Normal bowel sounds Musculoskeletal: No tenderness Integumentary: No rashes Neurological: Normal speech, Normal strength at 5/5 x4 extr, Normal tone - Studies Laboratory Data (last 24 hrs) 07/18/24 07/18/24 07/18/24 10:45 10:45 10:45 WBC 5.60 Hgb 8.8 L Hct 26.2 L Plt Count 79 L PT 13.8 H INR 1.22 APTT 27.7 Sodium 137 Potassium 4.1 BUN 38 H Creatinine 1.09 Glucose 88 Total Bilirubin 0.9 AST 30 ALT 32 Alkaline Phosphatase 69 Assessment and Plan - Plan Assessment: Acute on chronic diastolic congestive heart failure Severe tricuspid regurgitation History of CAD with PCI Atrial fibrillation status post Watchman procedure Acute on chronic hypoxic respiratory failure-combined CHF/COPD COPD on home O2 Frequent nosebleeds History of GI bleed-AVM Iron deficiency anemia History of DVT with IVC filter in place Hypertension Plan: Acute on chronic diastolic congestive heart failure Severe tricuspid regurgitation History of CAD with PCI Atrial fibrillation status post Watchman procedure Acute on chronic hypoxic respiratory failure-combined CHF/COPD Seen by cardiology in ED Will obtain repeat echo for evaluation of severe tricuspid regurg from recent admission Continue diuresis with IV Lasix Other home medications continued Wean oxygen as tolerated Pulmonology also consulted COPD on home O2 Pulmonary consult, prednisone 10 mg twice daily for now Will hold off on antibiotics for now white blood cell count normal, afebrile Procalcitonin in the morning Frequent nosebleeds History of GI bleed-AVM Iron deficiency anemia History of DVT with IVC filter in place Hemoglobin 8.8, has frequent nosebleeds Humidified oxygen Daily CBC Avoid anticoagulation is much as possible Hypertension Home medications continued DVT PPX: SCD Code status: Full Discharge Plan: Correction Plan to discharge in: Greater than 2 days - Advance Directives Does patient have a Living Will: No Does patient have a Durable POA for Healthcare: No - Code Status/Comfort Care Code Status Assessed: Yes (Full code) Critical Care: No Time Spent Managing Pts Care (In Minutes): 65
[2024-07-18] MEDS: FUROSEMIDE 40 MG/4 ML VIAL IV SCH (16:05)
[2024-07-18] MEDS: METOPROLOL TAR 25 MG TAB PO SCH (16:47)
[2024-07-18] MEDS: TAMSULOSIN 0.4 MG SR CAP PO SCH (21:28)
[2024-07-18] MEDS: GABAPENTIN 300 MG CAP PO SCH (21:28)
[2024-07-18] MEDS: HYDROCODONE/APAP 5/325 MG TAB PO PRN (21:28)
[2024-07-18] MEDS: ATORVASTATIN 10 MG TAB PO SCH (21:28)
[2024-07-18] MEDS: predniSONE 10 MG TAB PO SCH (21:31)
[2024-07-19 05:14] LABS: Absolute Lymphocytes (CBC) 0.2 K/uL (0.7-4.9); Absolute Monocytes 0.3 K/uL (0.1-1.3); Absolute Neutrophil 7.6 K/uL (1.8-8.0); Basophils % 0.2 % (0-1.3); Hematocrit 27.4 % (39.6-49.0); Hemoglobin 9.3 g/dL (13.6-17.9); Lymphocytes % 2.5 % (15.3-44.8); MCHC 34.1 g/dL (32.0-36.0); MCV 99.5 fL (80-100); MPV 8.9 fL (7.6-11.3); Monocytes % 4.1 % (3.3-12.3); Neutrophils % 93.2 % (41.7-73.7); Nucleated Red Blood Cells % 0.2 % (0-0); Platelets 83 thou/uL (152-406); RBC Red Blood Cell Count 2.75 M/uL (4.33-5.43); Red Cell Distribution Width 17.5 % (12.1-15.2)
[2024-07-19 06:17] LABS: Anion Gap 11.4 mEq/L (5.0-15.0); Digoxin Level 1.1 ng/mL (0.80-2.00); Potassium 4.4 mEq/L (3.5-5.1); Thyroid Stimulating Hormone 0.887 uIU/mL (0.358-3.740)
[2024-07-19] MEDS ORDERED: SPIRONOLACTONE 25 MG TABLET PO SCH (09:00)
[2024-07-19] MEDS: DIGOXIN 0.125 MG TABLET PO SCH (09:19)
[2024-07-19] MEDS: allopurinoL 100 MG TAB PO SCH (09:19)
[2024-07-19] MEDS: SPIRONOLACTONE 25 MG TABLET PO SCH (09:20)
--- NOTE | 2024-07-19 10:23 | P.PN ---
Date of Service: 07/19/24 Subjective: No acute events overnight No nose bleeds Feeling less short of breath today ROS: 10 point ROS as noted above, otherwise negative Physical exam GEN: Alert, oriented, NAD HEENT: Normal conjunctiva, sclera anicteric CV: Regular rate and rhythm, no edema Pulm: Nonlabored respirations on supplemental oxygen/facemask ABD: Soft, nontender, nondistended MSK: No joint tenderness Integumentary: No rashes Neuro: Normal speech, normal affect Vitals reviewed Assessment: Acute on chronic diastolic congestive heart failure Severe tricuspid regurgitation History of CAD with PCI Atrial fibrillation status post Watchman procedure Acute on chronic hypoxic respiratory failure-combined CHF/COPD COPD on home O2 Frequent nosebleeds History of GI bleed-AVM Iron deficiency anemia History of DVT with IVC filter in place Hypertension Plan: Acute on chronic diastolic congestive heart failure Severe tricuspid regurgitation History of CAD with PCI Atrial fibrillation status post Watchman procedure Acute on chronic hypoxic respiratory failure-combined CHF/COPD Seen by cardiology in ED Will obtain repeat echo for evaluation of severe tricuspid regurg from recent admission Continue diuresis with IV Lasix Other home medications continued Wean oxygen as tolerated Pulmonology also consulted COPD on home O2 Pulmonary consult, prednisone 10 mg twice daily for now Will hold off on antibiotics for now white blood cell count normal, afebrile Procalcitonin in the morning Frequent nosebleeds History of GI bleed-AVM Iron deficiency anemia History of DVT with IVC filter in place Hemoglobin stable, has frequent nosebleeds Humidified oxygen Daily CBC Avoid anticoagulation as much as possible Hypertension Home medications continued DVT PPX: SCD Code status: Full Discharge Plan: [facility] Plan to discharge in: Greater than 2 days Time Spent Managing Pts Care (In Minutes): 35
--- NOTE | 2024-07-19 13:31 | P.CNS ---
Date of Consult: 07/19/24 Chief Complaint: CHF exacerbation History of Present Illness: Patient with PMH of atrial fibrillation s/p watchman, diastolic heart failure, CAD, presented with worsening SOB and Bilateral LE edema, denies chest pain, no palpitations, no syncope Allergies clopidogrel bisulfate [From Plavix] Allergy (Mild, Verified 08/26/23 22:12) Hives Home medications list reviewed: Yes Home Medications: Allopurinol 100 mg PO DAILY 08/26/23 Digoxin [Lanoxin*] 1 tab PO DAILY 08/26/23 Fluticasone/Umeclidin/Vilanter [Trelegy Ellipta 100-62.5-25] 1 puff IN DAILY 08/26/23 Gabapentin [Neurontin] 600 mg PO BID 08/26/23 Pravastatin Sodium 80 mg PO BEDTIME 08/26/23 Tamsulosin [Flomax*] 1 cap PO DAILY 08/26/23 Acetaminophen [Tylenol*] 650 mg PO Q4HP PRN tab 07/10/24 Furosemide [Lasix*] 40 mg PO DAILY tab 07/10/24 Ipratropium Neb [Atrovent*] 0.5 mg NEB TIDRESP amp 07/10/24 Levalbuterol [Xopenex*] 0.63 mg NEB TIDRESP PRN vial 07/10/24 Metoprolol Tartrate [Lopressor*] 25 mg PO BID tab 07/10/24 Spironolactone [Aldactone*] 25 mg PO DAILY tab 07/10/24 Hydrocodone 5/APAP 325 [[place] 5/325*] 1 tab PO TID 07/18/24 predniSONE [Deltasone*] 10 mg PO BID 07/18/24 - Past Medical/Surgical History Diabetic: No -: DVT -: Atrial fib no anticoagulation -: COPD -: GI Bleed -: Hypertension -: CHF -: CAD -: High Cholestol -: Severe tricuspid regurgitation -: 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 -: katie filter Psychosocial/ Personal History: [facility], otherwise lives with his at home - Social History Smoking Status: Unknown if ever smoked Alcohol use: Yes CD- Drugs: No Caffeine use: Yes Place of Residence: Home Review of Systems 10-point ROS is otherwise unremarkable Physical Examination Temp Pulse Resp BP Pulse Ox 98.1 F 97 H 15 97/54 L 97 07/19/24 12:00 07/19/24 12:00 07/19/24 12:00 07/19/24 12:07/19/24 12:00 General: Alert, In no apparent distress HEENT: Atraumatic, PERRLA, Mucous membr. moist/pink, EOMI, Sclerae nonicteric Neck: Supple, 2+ carotid pulse no bruit, No LAD, Without JVD or thyroid abnormality Respiratory: Clear to auscultation bilaterally, Normal air movement Cardiovascular: Edema, Irregular heart rate/rhythm, Systolic murmur Gastrointestinal: Normal bowel sounds, No tenderness Musculoskeletal: No tenderness Integumentary: No rashes Neurological: Normal gait, Normal speech, Normal tone, Normal affect Lymphatics: No axilla or inguinal lymphadenopathy - Problems (1) Acute on chronic diastolic heart failure Current Visit: No Status: Acute Plan: continue Lasix 40 mg IV BID Continue Aldactone 25 mg daily continue to monitor input and output and electrolytes. (2) Atrial fibrillation with rapid ventricular response Onset Date: 02/05/18 Current Visit: No Status: Acute Plan: patient is s/p watchman continue metoprolol and digoxin. continue to monitor on tele (3) Tricuspid regurgitation Current Visit: No Status: Acute Plan: Severe with severe pulmonary hypertension, patient physical activity is very limited and not candidate for any kind surgical intervention, overall prognosis is very poor.
--- NOTE | 2024-07-19 13:55 | ECHO ---
HEIGHT: 6 ft 0 in WEIGHT: 165 lb 0 oz DATE OF STUDY: 07/19/[address]: Calvin Leon NP 2-DIMENSIONAL: YES M.MODE: YES DOPPLER: YES COLOR FLOW: YES TDS: NO PORTABLE: YES DEFINITY: NO BUBBLE STUDY: NO DIAGNOSIS: SEVERE TRICUSPID REGURGITATION CARDIAC HISTORY: CATHERIZATION: SURGERY: PROSTHETIC VALVE: PACEMAKER: MEASUREMENTS (cm) DIASTOLIC (NORMALS) SYSTOLIC (NORMALS) IVSd 0.9 (0.6-1.2) LA Diam 2.4 (1.9-4.0) LVEF 50-55% LVIDd 4.1 (3.5-5.7) LVIDs 3.2 (2.0-3.5) %FS 22% LVPWd 1.1 (0.6-1.2) Ao Diam 3.0 (2.0-3.7) 2 DIMENSIONAL ASSESSMENT: RIGHT ATRIUM: SEVERELY ENLARGED LEFT ATRIUM: NORMAL RIGHT VENTRICLE: MILDLY DILATED LEFT VENTRICLE: NORMAL TRICUSPID VALVE: SEVERE TRICUSPID REGURGITATION MITRAL VALVE: HEAVILY CALCIFIED, NO STENOSIS PULMONIC VALVE: NOT WILL VISUALIZED AORTIC VALVE: HEAVILY CALCIFIED, NO STENOSIS PERICARDIAL EFFUSION: NONE AORTIC ROOT: NORMAL LEFT VENTRICULAR WALL MOTION: NORMAL. DOPPLER/COLOR FLOW: DIASTOLIC DYSFUNCTION. COMMENTS: 1. NORMAL LEFT VENTRICULAR SYSTOLIC FUNCTION. LEFT VENTRICULAR EJECTION FRACTION 50-55%. NORMAL WALL MOTION. 2. DIASTOLIC DYSFUNCTION. 3. SEVERE TRICUSPID REGURGITATION. 4. SEVERE PULMONARY HYPERTENSION. RIGHT VENTRICULAR SYSTOLIC PRESSURE 80 mmHg. 5. ELEVATED FILLING PRESSURE. RIGHT ATRIAL PRESSURE 15-20 mmHg. TECHNOLOGIST: TIFFANIE COYLE
[2024-07-19 17:19] LABS: Influenza A Ag Negative; Influenza B Ag Negative
[2024-07-19 17:21] LABS: SARS-CoV-2 Antigen Rapid Res Positive (Negative)
[2024-07-20 04:54] LABS: Absolute Lymphocytes (CBC) 0.3 K/uL (0.7-4.9); Absolute Monocytes 0.3 K/uL (0.1-1.3); Absolute Neutrophil 5.7 K/uL (1.8-8.0); Basophils % 0.2 % (0-1.3); Hematocrit 24.5 % (39.6-49.0); Hemoglobin 8.5 g/dL (13.6-17.9); Lymphocytes % 4.1 % (15.3-44.8); MCHC 34.5 g/dL (32.0-36.0); MCV 98.4 fL (80-100); MPV 9.1 fL (7.6-11.3); Monocytes % 4.2 % (3.3-12.3); Neutrophils % 91.5 % (41.7-73.7); Nucleated Red Blood Cells % 0.2 % (0-0); Platelets 83 thou/uL (152-406); RBC Red Blood Cell Count 2.49 M/uL (4.33-5.43)
[2024-07-20 05:09] LABS: Anion Gap 10.3 mEq/L (5.0-15.0); Potassium 4.3 mEq/L (3.5-5.1)
--- NOTE | 2024-07-20 13:06 | P.PN ---
Date of Service: 07/20/24 Subjective: No acute events overnight No nose bleeds Mild improvement in dyspnea ROS: 10 point ROS as noted above, otherwise negative Physical exam GEN: Alert, oriented, NAD HEENT: Normal conjunctiva, sclera anicteric CV: Regular rate and rhythm, no edema Pulm: Nonlabored respirations on supplemental oxygen/facemask ABD: Soft, nontender, nondistended MSK: No joint tenderness Integumentary: No rashes Neuro: Normal speech, normal affect Vitals reviewed 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 Hypertension Plan: Acute on chronic diastolic congestive heart failure Severe tricuspid regurgitation History of CAD with PCI Atrial fibrillation status post Watchman procedure Acute on chronic hypoxic respiratory failure-combined CHF/COPD Seen by cardiology in ED Repeat echo still shows severe tricuspid regurgitation with pulmonary hypertension Blood pressures were running soft, patient does not appear grossly overloaded at this time, will hold Lasix for today Other home medications continued Wean oxygen as tolerated Pulmonology also consulted COVID-19 viral illness/possible viral pneumonia Chronic opacities on imaging possibly related to viral pneumonia Has possibly been symptomatic for over a week now Continue supportive care, steroids COPD on home O2 Pulmonary consult, prednisone 10 mg twice daily for now Will hold off on antibiotics for now white blood cell count normal, afebrile Procalcitonin within normal limits Frequent nosebleeds History of GI bleed-AVM Iron deficiency anemia History of DVT with IVC filter in place Hemoglobin stable, has frequent nosebleeds Humidified oxygen Daily CBC Avoid anticoagulation as much as possible Hypertension Home medications continued DVT PPX: SCD Code status: Full Discharge Plan: [facility] Plan to discharge in: Greater than 2 days Time Spent Managing Pts Care (In Minutes): 35
[2024-07-21 05:12] LABS: Absolute Lymphocytes (CBC) 0.2 K/uL (0.7-4.9); Absolute Monocytes 0.4 K/uL (0.1-1.3); Absolute Neutrophil 7.5 K/uL (1.8-8.0); Basophils % 0.2 % (0-1.3); Eosinophils % 0.1 % (0-4.4); Hematocrit 23.9 % (39.6-49.0); Hemoglobin 8.2 g/dL (13.6-17.9); Lymphocytes % 2.2 % (15.3-44.8); MCH 34.2 pg (27.0-35.0); MCHC 34.5 g/dL (32.0-36.0); MCV 99.3 fL (80-100); MPV 9.5 fL (7.6-11.3); Monocytes % 4.8 % (3.3-12.3); Neutrophils % 92.7 % (41.7-73.7); Nucleated Red Blood Cells % 0.4 % (0-0); Platelets 100 thou/uL (152-406); RBC Red Blood Cell Count 2.41 M/uL (4.33-5.43); Red Cell Distribution Width 16.9 % (12.1-15.2)
[2024-07-21 05:28] LABS: Anion Gap 8.5 mEq/L (5.0-15.0); Potassium 4.5 mEq/L (3.5-5.1)
--- NOTE | 2024-07-21 09:40 | P.PN ---
Date of Service: 07/21/24 Subjective: No acute events overnight No nose bleeds Mild improvement in dyspnea Tolerating nasal cannula that fits over his nose ROS: 10 point ROS as noted above, otherwise negative Physical exam GEN: Alert, oriented, NAD HEENT: Normal conjunctiva, sclera anicteric CV: Regular rate and rhythm, no edema Pulm: Nonlabored respirations on nasal cannula at 6 L ABD: Soft, nontender, nondistended MSK: No joint tenderness Integumentary: No rashes Neuro: Normal speech, normal affect Vitals reviewed 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 Hypertension Plan: Acute on chronic diastolic congestive heart failure Severe tricuspid regurgitation History of CAD with PCI Atrial fibrillation status post Watchman procedure Acute on chronic hypoxic respiratory failure-combined CHF/COPD Seen by cardiology in ED Repeat echo still shows severe tricuspid regurgitation with pulmonary hypertension Blood pressures were running soft, patient does not appear grossly overloaded at this time, will hold Lasix for today Repeat chest x-ray today Other home medications continued Wean oxygen as tolerated Pulmonology also consulted COVID-19 viral illness/possible viral pneumonia Chronic opacities on imaging possibly related to viral pneumonia Has possibly been symptomatic for over a week now Continue supportive care, steroids COPD on home O2 Pulmonary consult, prednisone 10 mg twice daily for now Will hold off on antibiotics for now white blood cell count normal, afebrile Procalcitonin within normal limits Frequent nosebleeds History of GI bleed-AVM Iron deficiency anemia History of DVT with IVC filter in place Hemoglobin stable, has frequent nosebleeds Humidified oxygen Daily CBC Avoid anticoagulation as much as possible Hypertension Home medications continued DVT PPX: SCD Code status: Full Discharge Plan: Skilled Nursing Plan to discharge in: Greater than 2 days Time Spent Managing Pts Care (In Minutes): 35
--- NOTE | 2024-07-21 10:01 | RAD REPORT ---
EXAMINATION: ONE VIEW CHEST XR CLINICAL INDICATION: Male, 88 years old.,dyspnea, volume status TECHNIQUE: Frontal chest projection is submitted. Examination is limited by patient positioning and t echnique. COMPARISON: 07/18/2024 FINDINGS: The lungs are well inflated. Patchy left basilar and right upper to midlung peripheral opacities appe ar stable. There may be a small component of left pleural effusion, stable. No pneumothorax or sizable right effusion. The heart is normal in size. Mediastinal contours are unchanged. Left chest w all pacer and left atrial appendage occlusion device in place. Sclerotic lesion involving the distal humerus appears stable. IMPRESSION: Stable bilateral airspace opacities as above, may relate to ongoing pneumonia particularly at the lef t base.
[2024-07-21] MEDS: BENZONATATE 100 MG CAP PO PRN (11:05)
[2024-07-22 04:33] LABS: Absolute Lymphocytes (CBC) 0.2 K/uL (0.7-4.9); Absolute Monocytes 0.4 K/uL (0.1-1.3); Absolute Neutrophil 8.5 K/uL (1.8-8.0); Basophils % 0.1 % (0-1.3); Eosinophils % 0.1 % (0-4.4); Hematocrit 21.9 % (39.6-49.0); Hemoglobin 7.5 g/dL (13.6-17.9); Lymphocytes % 2.7 % (15.3-44.8); MCH 33.6 pg (27.0-35.0); MCHC 34.2 g/dL (32.0-36.0); MCV 98.4 fL (80-100); MPV 9.2 fL (7.6-11.3); Monocytes % 4.6 % (3.3-12.3); Neutrophils % 92.5 % (41.7-73.7); Nucleated RBC Absolute Count 0.1 (0-0); Nucleated Red Blood Cells % 0.6 % (0-0); Platelets 121 thou/uL (152-406); RBC Red Blood Cell Count 2.22 M/uL (4.33-5.43); Red Cell Distribution Width 17.2 % (12.1-15.2)
[2024-07-22 04:51] LABS: Anion Gap 9.9 mEq/L (5.0-15.0); Potassium 4.9 mEq/L (3.5-5.1)
[2024-07-22 05:31] LABS: Band Neutrophils 11 % (0-1); Differential Total Cells Count 100; Lymphocytes 5 % (15-42); Metamyelocytes 1 % (0-0); Monocytes 2 % (0-10); Nucleated Red Blood Cells 1 /100WBC; Reactive Lymphocytes 2 %; Segmented Neutrophils 79 % (40-80)
[2024-07-22 05:32] LABS: Blood Morphology Comment NOTED (NOT SEEN); Platelet Estimate ADEQ; Polychromasia 2+
[2024-07-22] MEDS: FUROSEMIDE 40 MG TABLET PO SCH (09:32)
--- NOTE | 2024-07-22 10:37 | P.PN ---
Date of Service: 07/22/24 Subjective: No acute events overnight Had a nose bleed this morning leading to some desaturation Mild improvement in dyspnea Tolerating home nasal cannula that fits over his nose ROS: 10 point ROS as noted above, otherwise negative Physical exam GEN: Alert, oriented, NAD HEENT: Normal conjunctiva, sclera anicteric CV: Regular rate and rhythm, no edema Pulm: Nonlabored respirations on nasal cannula at 6 L ABD: Soft, nontender, nondistended MSK: No joint tenderness Integumentary: No rashes Neuro: Normal speech, normal affect Vitals reviewed 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 Hypertension Plan: Acute on chronic diastolic congestive heart failure Severe tricuspid regurgitation History of CAD with PCI Atrial fibrillation status post Watchman procedure Acute on chronic hypoxic respiratory failure-combined CHF/COPD Seen by cardiology in ED Repeat echo still shows severe tricuspid regurgitation with pulmonary hypertension Blood pressures were running soft, patient does not appear grossly overloaded at this time Restarted oral lasix Other home medications continued Wean oxygen as tolerated Pulmonology also consulted Likely to be discharged to SNF/VA facility in the coming days-need to improve 02 requirement COVID-19 viral illness/possible viral pneumonia Chronic opacities on imaging possibly related to viral pneumonia Has possibly been symptomatic for over a week now Continue supportive care, steroids COPD on home O2 Pulmonary consult, prednisone 10 mg twice daily for 2 more days Will hold off on antibiotics for now white blood cell count normal, afebrile Procalcitonin within normal limits Frequent nosebleeds History of GI bleed-AVM Iron deficiency anemia History of DVT with IVC filter in place Hemoglobin stable, has frequent nosebleeds Daily CBC Avoid anticoagulation as much as possible Hypertension Home medications continued DVT PPX: SCD Code status: Full Discharge Plan: [facility] Plan to discharge in: Greater than 2 days Time Spent Managing Pts Care (In Minutes): 35
--- NOTE | 2024-07-22 12:09 | P.PN ---
Subjective Date of Service: 07/22/24 Chief Complaint: CHF exacerbation Subjective: No new changes, No C/O voiced, Tolerating diet, Ambulating, Improving Review of Systems 10-point ROS is otherwise unremarkable Physical Examination - Vital Signs Temperature: 97.5 F Blood Pressure: 119/64 Pulse: 88 Respirations: 16 Pulse Ox (%): 92 - Physical Exam General: Alert, In no apparent distress HEENT: Atraumatic, PERRLA, EOMI Neck: Supple, JVD not distended Respiratory: Clear to auscultation bilaterally, Normal air movement Cardiovascular: Irregular heart rate/rhythm Gastrointestinal: Normal bowel sounds, No tenderness Musculoskeletal: No tenderness Integumentary: No rashes Neurological: Normal speech, Normal tone, Normal affect Lymphatics: No axilla or inguinal lymphadenopathy - Studies Medications List Reviewed: Yes Assessment And Plan - Current Problems (Diagnosis) (1) Acute on chronic diastolic heart failure Current Visit: No Status: Acute Plan: continue Lasix 40 mg PO daily Continue Aldactone 25 mg daily continue to monitor input and output and electrolytes. (2) Atrial fibrillation with rapid ventricular response Onset Date: 02/05/18 Current Visit: No Status: Acute Plan: patient is s/p watchman continue metoprolol and digoxin. continue to monitor on tele (3) Tricuspid regurgitation Current Visit: No Status: Acute Plan: Severe with severe pulmonary hypertension, patient physical activity is very limited and not candidate for any kind surgical intervention, overall prognosis is very poor. Cardiology will sign off, please call with any questions.
[2024-07-23 09:52] LABS: Absolute Lymphocytes (CBC) 0.3 K/uL (0.7-4.9); Absolute Monocytes 0.3 K/uL (0.1-1.3); Absolute Neutrophil 7.4 K/uL (1.8-8.0); Basophils % 0.2 % (0-1.3); Eosinophils % 0.1 % (0-4.4); Hematocrit 23.3 % (39.6-49.0); Hemoglobin 7.8 g/dL (13.6-17.9); Lymphocytes % 3.9 % (15.3-44.8); MCH 33.6 pg (27.0-35.0); MCHC 33.5 g/dL (32.0-36.0); MCV 100.2 fL (80-100); MPV 8.9 fL (7.6-11.3); Monocytes % 3.2 % (3.3-12.3); Neutrophils % 92.6 % (41.7-73.7); Nucleated RBC Absolute Count 0.1 (0-0); Platelets 157 thou/uL (152-406); RBC Red Blood Cell Count 2.32 M/uL (4.33-5.43); Red Cell Distribution Width 17.3 % (12.1-15.2)
[2024-07-23 10:06] LABS: Anion Gap 10.3 mEq/L (5.0-15.0); Potassium 4.3 mEq/L (3.5-5.1)
[2024-07-23 11:35] LABS: Atypical Lymphocytes 1 %; Band Neutrophils 2 % (0-1); Differential Total Cells Count 100; Eosinophils 1 % (0-3); Lymphocytes 3 % (15-42); Metamyelocytes 1 % (0-0); Monocytes 2 % (0-10); Segmented Neutrophils 92 % (40-80)
[2024-07-23 11:36] LABS: Nucleated Red Blood Cells 2 /100WBC
[2024-07-23 11:40] LABS: Platelet Estimate ADEQ
[2024-07-23 11:41] LABS: Anisocytosis 1+; Blood Morphology Comment NOTED (NOT SEEN); Polychromasia 1+
--- NOTE | 2024-07-23 15:39 | P.PN ---
Date of Service: 07/23/24 Subjective: Awake, family at the bedside goals of care discussed, will continue with Physical therapy SOB while conversing ROS: 10 point ROS as noted above, otherwise negative Physical exam GEN: Alert and oriented, NAD HEENT: Normal conjunctiva, sclera anicteric CV: Regular rate and rhythm, no edema Pulm: Increased work of breathing, on nasal cannula at 8 L ABD: Soft and nontender on palpation MSK: No joint tenderness Integumentary: No rashes Neuro: Normal speech, normal affect Vitals reviewed 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 Hypertension Plan: Acute on chronic diastolic congestive heart failure Severe tricuspid regurgitation History of CAD with PCI Atrial fibrillation status post Watchman procedure Acute on chronic hypoxic respiratory failure-combined CHF/COPD Seen by cardiology in ED Repeat echo still shows severe tricuspid regurgitation with pulmonary hypertension Blood pressures were running soft, patient does not appear grossly overloaded at this time Restarted oral lasix Other home medications continued Wean oxygen as tolerated Pulmonology also consulted Likely to be discharged to SNF/VA facility in the coming days-need to improve 02 requirement COVID-19 viral illness/possible viral pneumonia Chronic opacities on imaging possibly related to viral pneumonia Has possibly been symptomatic for over a week now Continue supportive care, steroids COPD on home O2 Pulmonary consult, prednisone 10 mg twice daily for 2 more days Will hold off on antibiotics for now white blood cell count normal, afebrile Procalcitonin within normal limits Frequent nosebleeds History of GI bleed-AVM Iron deficiency anemia History of DVT with IVC filter in place Hemoglobin stable, has frequent nosebleeds Daily CBC, H/H stable Avoid anticoagulation as much as possible Hypertension Home medications continued Interval hospital course 07/23/24 -Continues with SOB -attempts to work with Physical therapy -goals of care conversation today, still pending -Cardiology signed off DVT PPX: SCD Code status: Full Discharge Plan: Custodial Plan to discharge in: Greater than 2 days
--- NOTE | 2024-07-24 09:13 | P.PN ---
Date of Service: 07/24/24 Subjective: Awake in bed Nasal cannula being used, 8 Liters with the biflo nasal mask to allow proper delivery no new complaints ROS: 10 point ROS as noted above, otherwise negative Physical exam GEN: AAOx3, NAD HEENT: Normal conjunctiva, sclera anicteric CV: Regular rate and rhythm, no edema Pulm: normal air flow, on nasal cannula at 8 L ABD: Soft and nontender on palpation MSK: No joint tenderness Integumentary: No rashes Neuro: Normal speech, normal affect Vitals reviewed 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 Hypertension Plan: Acute on chronic diastolic congestive heart failure Severe tricuspid regurgitation History of CAD with PCI Atrial fibrillation status post Watchman procedure Acute on chronic hypoxic respiratory failure-combined CHF/COPD Seen by cardiology in ED Repeat echo still shows severe tricuspid regurgitation with pulmonary hypertension Blood pressures were running soft, patient does not appear grossly overloaded at this time Restarted oral lasix Other home medications continued Wean oxygen as tolerated Pulmonology also consulted Likely to be discharged to SNF/VA facility in the coming days-need to improve 02 requirement COVID-19 viral illness/possible viral pneumonia Chronic opacities on imaging possibly related to viral pneumonia Has possibly been symptomatic for over a week now Continue supportive care, steroids COPD on home O2 Pulmonary consult, prednisone 10 mg twice daily for 2 more days Will hold off on antibiotics for now white blood cell count normal, afebrile Procalcitonin within normal limits Frequent nosebleeds History of GI bleed-AVM Iron deficiency anemia History of DVT with IVC filter in place Hemoglobin stable, has frequent nosebleeds Daily CBC, H/H stable Avoid anticoagulation as much as possible Hypertension Home medications continued Interval hospital course 07/23/24 -Continues with SOB -attempts to work with Physical therapy -goals of care conversation today, still pending -Cardiology signed off 07/24/24 -one unit PRBC today -biflo nasal cannula requiring high liters to provide delivery of the oxygen -no acute distress -continued conversation with family, will attempt inpatient rehab DVT PPX: SCD Code status: Full Discharge Plan: Group Home Plan to discharge in: Greater than 2 days
[2024-07-24] MEDS: FUROSEMIDE 20 MG/ 2ML VIAL IV ONE (09:30)
[2024-07-24] MEDS ORDERED: NA CHLORIDE 0.9% 250 ML IV SCH (10:00)
--- NOTE | 2024-07-24 12:56 | EKG ---
Test Date: 2024-07-18 Test Time: 10:11:07 Side Hem[place]: AM MEASUREMENT RESULTS: Intervals: Rate: 81 ME: QRSD: 134 QT: 390 QTc: 453 [place]: P: ME: QRS: 82 T: 8 INTERPRETIVE STATEMENTS: Atrial fibrillation with occasional ventricular-paced complexes Right bundle branch block Abnormal ECG Compared to ECG 07/01/2024 11:13:48 Uncertain supraventricular rhythm no longer present Fusion complex(es) no longer present Ventricular premature complex(es) no longer present T-wave abnormality no longer present Possible ischemia no longer present Electronically Signed On 07-24-24 12:37:20 CDT by Armin Myles
[2024-07-24 17:30] LABS: Absolute Eosinophils 0.1 K/uL (0-0.5); Absolute Lymphocytes (CBC) 0.3 K/uL (0.7-4.9); Absolute Monocytes 0.5 K/uL (0.1-1.3); Absolute Neutrophil 7.5 K/uL (1.8-8.0); Basophils % 0.2 % (0-1.3); Eosinophils % 1.3 % (0-4.4); Hematocrit 28.1 % (39.6-49.0); Hemoglobin 9.6 g/dL (13.6-17.9); Lymphocytes % 3.8 % (15.3-44.8); MCH 33.2 pg (27.0-35.0); MCV 97.6 fL (80-100); MPV 8.4 fL (7.6-11.3); Monocytes % 5.8 % (3.3-12.3); Neutrophils % 88.9 % (41.7-73.7); Nucleated RBC Absolute Count 0.1 (0-0); Platelets 198 thou/uL (152-406); RBC Red Blood Cell Count 2.88 M/uL (4.33-5.43)
[2024-07-24] MEDS: ENSURE ENLIVE 237 ML CAN PO SCH (20:23)
[2024-07-25 04:58] LABS: Absolute Eosinophils 0.1 K/uL (0-0.5); Absolute Lymphocytes (CBC) 0.3 K/uL (0.7-4.9); Absolute Monocytes 0.5 K/uL (0.1-1.3); Absolute Neutrophil 8.9 K/uL (1.8-8.0); Basophils % 0.2 % (0-1.3); Eosinophils % 0.8 % (0-4.4); Hematocrit 27.7 % (39.6-49.0); Hemoglobin 9.2 g/dL (13.6-17.9); Lymphocytes % 2.6 % (15.3-44.8); MCHC 33.3 g/dL (32.0-36.0); MCV 99.1 fL (80-100); MPV 8.4 fL (7.6-11.3); Monocytes % 4.9 % (3.3-12.3); Nucleated RBC Absolute Count 0.1 (0-0); Nucleated Red Blood Cells % 0.9 % (0-0); Platelets 198 thou/uL (152-406); Red Cell Distribution Width 19.3 % (12.1-15.2)
[2024-07-25 05:02] LABS: Neutrophils % 91.5 % (41.7-73.7)
[2024-07-25 05:06] LABS: Anion Gap 8.4 mEq/L (5.0-15.0); Potassium 4.4 mEq/L (3.5-5.1)
--- NOTE | 2024-07-25 10:55 | P.PN ---
Date of Service: 07/25/24 Subjective: Awake wearing his pulse ox and the hospital pulse ox He is very aware of his high oxygen need, no distress noted no new complaints ROS: 10 point ROS as noted above, otherwise negative Physical exam GEN: AAOx3, NAD HEENT: Normal conjunctiva, sclera anicteric CV: Afib HR 62, no edema Pulm: normal air flow, on nasal cannula at 8 L ABD: Soft on palpation, NT/ND, active bowel sounds MSK: No joint tenderness Integumentary: No rashes Neuro: Normal speech, normal affect Vitals reviewed 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 Hypertension Plan: Acute on chronic diastolic congestive heart failure Severe tricuspid regurgitation History of CAD with PCI Atrial fibrillation status post Watchman procedure Acute on chronic hypoxic respiratory failure-combined CHF/COPD Seen by cardiology in ED Repeat echo still shows severe tricuspid regurgitation with pulmonary hypertension Blood pressures were running soft, patient does not appear grossly overloaded at this time Restarted oral lasix Other home medications continued Wean oxygen as tolerated Pulmonology also consulted Likely to be discharged to SNF/VA facility in the coming days-need to improve 02 requirement COVID-19 viral illness/possible viral pneumonia Chronic opacities on imaging possibly related to viral pneumonia Has possibly been symptomatic for over a week now Continue supportive care, steroids COPD on home O2 Pulmonary consult, prednisone 10 mg twice daily for 2 more days Will hold off on antibiotics for now white blood cell count normal, afebrile Procalcitonin within normal limits Frequent nosebleeds History of GI bleed-AVM Iron deficiency anemia History of DVT with IVC filter in place Hemoglobin stable, has frequent nosebleeds Daily CBC, H/H stable Avoid anticoagulation as much as possible Hypertension Home medications continued Interval hospital course 07/23/24 -Continues with SOB -attempts to work with Physical therapy -goals of care conversation today, still pending -Cardiology signed off 07/24/24 -one unit PRBC today -biflo nasal cannula requiring high liters to provide delivery of the oxygen -no acute distress -continued conversation with family, will attempt inpatient rehab 07/25/24 -H/H stable after 1 unit PRBC 07/24 -Requiring 8 LNC for 90-92% oxygenation -Afib with controlled HR -hemodynamically stable DVT PPX: SCD Code status: Full Discharge Plan: [facility] Plan to discharge in: Greater than 2 days
[2024-07-25] MEDS: ALBUTEROL 2.5 MG/3 ML NEB SOL NEB PRN (13:24)
[2024-07-26 04:46] LABS: Absolute Eosinophils 0.1 K/uL (0-0.5); Absolute Lymphocytes (CBC) 0.2 K/uL (0.7-4.9); Absolute Monocytes 0.5 K/uL (0.1-1.3); Absolute Neutrophil 6.2 K/uL (1.8-8.0); Basophils % 0.2 % (0-1.3); Eosinophils % 1.2 % (0-4.4); Hemoglobin 8.6 g/dL (13.6-17.9); Lymphocytes % 2.9 % (15.3-44.8); MCH 33.4 pg (27.0-35.0); MCHC 34.3 g/dL (32.0-36.0); MCV 97.4 fL (80-100); MPV 8.7 fL (7.6-11.3); Monocytes % 7.3 % (3.3-12.3); Neutrophils % 88.4 % (41.7-73.7); Nucleated Red Blood Cells % 0.5 % (0-0); Platelets 180 thou/uL (152-406); RBC Red Blood Cell Count 2.57 M/uL (4.33-5.43); Red Cell Distribution Width 18.8 % (12.1-15.2)
[2024-07-26 04:53] LABS: Anion Gap 6.1 mEq/L (5.0-15.0); Magnesium 1.9 mg/dL (1.6-2.4); Phosphorus 2.3 mg/dL (2.5-4.9); Potassium 4.1 mEq/L (3.5-5.1)
--- NOTE | 2024-07-26 17:37 | P.PN ---
Date of Service: 07/26/24 Subjective: Awake, watching his personal pulse ox requiring more oxygen today unable to tolerate working with therapy ROS: 10 point ROS as noted above, otherwise negative Physical exam GEN: Alert and oriented x3, NAD CV: mild tachycardia, no edema Pulm: normal air flow, on nasal cannula at 10 L ABD: Soft, active bowel sounds MSK: No joint tenderness Integumentary: No rashes Neuro: Normal speech, normal affect Vitals reviewed 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 Hypertension Plan: Acute on chronic diastolic congestive heart failure Severe tricuspid regurgitation History of CAD with PCI Atrial fibrillation status post Watchman procedure Acute on chronic hypoxic respiratory failure-combined CHF/COPD Seen by cardiology in ED Repeat echo still shows severe tricuspid regurgitation with pulmonary hypertension Blood pressures were running soft, patient does not appear grossly overloaded at this time Restarted oral lasix Other home medications continued Wean oxygen as tolerated Pulmonology also consulted Likely to be discharged to SNF/VA facility in the coming days-need to improve 02 requirement COVID-19 viral illness/possible viral pneumonia Chronic opacities on imaging possibly related to viral pneumonia Has possibly been symptomatic for over a week now Continue supportive care, steroids COPD on home O2 Pulmonary consult, prednisone 10 mg twice daily for 2 more days Will hold off on antibiotics for now white blood cell count normal, afebrile Procalcitonin within normal limits Frequent nosebleeds History of GI bleed-AVM Iron deficiency anemia History of DVT with IVC filter in place Hemoglobin stable, has frequent nosebleeds Daily CBC, H/H stable Avoid anticoagulation as much as possible Hypertension Home medications continued Interval hospital course 07/23/24 -Continues with SOB -attempts to work with Physical therapy -goals of care conversation today, still pending -Cardiology signed off 07/24/24 -one unit PRBC today -biflo nasal cannula requiring high liters to provide delivery of the oxygen -no acute distress -continued conversation with family, will attempt inpatient rehab 07/25/24 -H/H stable after 1 unit PRBC 07/24 -Requiring 8 LNC for 90-92% oxygenation -Afib with controlled HR -hemodynamically stable 07/26/24 -Family choosing hospice at home, equipment will be ready for Monday's discharge -increased oxygen need -digoxin level WNL -continue treatment DVT PPX: SCD Code status: Full Discharge Plan: [facility] Plan to discharge in: Greater than 2 days
[2024-07-27 06:22] LABS: Absolute Eosinophils 0.1 K/uL (0-0.5); Absolute Lymphocytes (CBC) 0.3 K/uL (0.7-4.9); Absolute Monocytes 0.6 K/uL (0.1-1.3); Absolute Neutrophil 4.9 K/uL (1.8-8.0); Basophils % 0.3 % (0-1.3); Eosinophils % 1.7 % (0-4.4); Hematocrit 23.1 % (39.6-49.0); Hemoglobin 7.9 g/dL (13.6-17.9); Lymphocytes % 4.7 % (15.3-44.8); MCHC 34.2 g/dL (32.0-36.0); MCV 96.5 fL (80-100); MPV 8.5 fL (7.6-11.3); Monocytes % 10.1 % (3.3-12.3); Neutrophils % 83.2 % (41.7-73.7); Nucleated Red Blood Cells % 0.3 % (0-0); Platelets 184 thou/uL (152-406); RBC Red Blood Cell Count 2.39 M/uL (4.33-5.43); Red Cell Distribution Width 18.5 % (12.1-15.2)
[2024-07-27 06:38] LABS: Anion Gap 5.3 mEq/L (5.0-15.0); Magnesium 2.1 mg/dL (1.6-2.4); Phosphorus 2.9 mg/dL (2.5-4.9); Potassium 4.3 mEq/L (3.5-5.1)
--- NOTE | 2024-07-27 15:40 | P.PN ---
Subjective Date of Service: 07/27/24 Chief Complaint: CHF exacerbation Patient is complaining of pain. He is now maintained on 2 L oxygen by nasal cannula. No issues overnight. Patient remains awake and alert. Physical Examination - Vital Signs Temperature: 98.3 F Blood Pressure: 100/61 Pulse: 94 Respirations: 18 Pulse Ox (%): 91 - Studies Medications List Reviewed: Yes Assessment And Plan - Plan Physical examination General: Alert and oriented x2, NAD, HEENT: Conjunctiva not pale, anicteric sclera Neck: Supple, no elevated JVD Heart: Heart sounds 1 and 2 normal, irregular rhythm, normal rate, no pedal edema Lungs: Bilateral crackles, diminished breath sounds bilaterally, no rhonchi. Abdomen: Soft, nondistended, nontender, normal bowel sounds. Extremities: No tenderness, no deformity Skin: Areas of bruises bilateral upper and lower extremities. Neuro: No focal motor deficit. Normal speech. Psychiatry: Normal mood, no agitation. 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 Hypertension Plan: Acute on chronic diastolic congestive heart failure Severe tricuspid regurgitation History of CAD with PCI Atrial fibrillation status post Watchman procedure Acute on chronic hypoxic respiratory failure-combined CHF/COPD Seen by cardiology in ED Repeat echo still shows severe tricuspid regurgitation with pulmonary hypertension Blood pressures were running soft, patient does not appear grossly overloaded at this time Restarted oral lasix Other home medications continued Wean oxygen as tolerated Pulmonology also consulted Likely to be discharged to SNF/VA facility in the coming days-need to improve 02 requirement COVID-19 viral illness/possible viral pneumonia Chronic opacities on imaging possibly related to viral pneumonia Has possibly been symptomatic for over a week now Continue supportive care, steroids COPD on home O2 Pulmonary consult, prednisone 10 mg twice daily for 2 more days Will hold off on antibiotics for now white blood cell count normal, afebrile Procalcitonin within normal limits Frequent nosebleeds History of GI bleed-AVM Iron deficiency anemia 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 He is requiring more oxygen. Progressive respiratory failure multifactorial secondary to emphysema, lung fibrosis/scarring with superimposed COVID-19 pneumonia. Patient has not responded to treatment. Repeat chest x-ray to assess for pneumonia. Of note, procalcitonin checked earlier was negative. Empiric antibiotics-cefepime and doxycycline. Continue steroids and bronchodilators. Family is considering hospice at home. Social service is assisting with hospice arrangement.
[2024-07-27] MEDS: DOXYCYCLINE 100 MG in NA CHLORIDE 0.9% 100 ML IVPB SCH (15:51)
[2024-07-27 16:34] VITALS: BMI 22.4
--- NOTE | 2024-07-27 17:33 | RAD REPORT ---
EXAMINATION: CTA CHEST PE CLINICAL INDICATION: Hypoxia TECHNIQUE: 100 cc 370 Isovue administered intravenously. This examination was performed according to an angiographic protocol with 3D post-processing. This involves 3D reconstructions, MIPs, volume rendered images and/or shaded surface rendering. One or more of the following dose reduction techniqu es were used: Automated exposure control, adjustment of the mA and/or kV according to patient size, and/or iterative reconstruction. Unless otherwise specified, incidental findings do not require dedic ated imaging follow-up. [id number]. COMPARISON: July 08, 2024. FINDINGS: A pulmonary embolus is not seen. An aortic aneurysm not noted. No pleural effusion. No pericardial effusion. Watchman device in the heart. Mild left lower lobe opacities. Mild posterior right upper lobe opacities. Additional right lung opacities appear chronic. Centrilobular emphysema with bronchial wall thickening. IMPRESSION: No evidence of a pulmonary embolism Mild posterior right upper lobe and lower lobe opacities probably pneumonia. Chronic right lung opacities.
--- NOTE | 2024-07-27 17:35 | RAD REPORT ---
Procedure: Chest Single View HISTORY: Hypoxia COMPARISON: July 21, 2024 FINDINGS: No change in probably right upper lobe and left lower lobe opacities Stable right humeral calcification may represent an infarct or enchondroma. No significant pleural effusion noted. The heart is moderately enlarged. Pacemaker leads in place. IMPRESSION: Stable right upper and left lower lobe pulmonary opacities probably pneumonia. Additional right upper lobe opacities are chronic
[2024-07-27] MEDS: CEFEPIME 2 GM in NA CHLORIDE 0.9% 100 ML IV SCH (20:22)
[2024-07-28 06:24] LABS: Absolute Eosinophils 0.1 K/uL (0-0.5); Absolute Lymphocytes (CBC) 0.3 K/uL (0.7-4.9); Absolute Monocytes 0.7 K/uL (0.1-1.3); Absolute Neutrophil 4.6 K/uL (1.8-8.0); Basophils % 0.5 % (0-1.3); Hematocrit 24.4 % (39.6-49.0); Hemoglobin 8.6 g/dL (13.6-17.9); Lymphocytes % 4.8 % (15.3-44.8); MCH 33.7 pg (27.0-35.0); MCHC 35.1 g/dL (32.0-36.0); MCV 96.1 fL (80-100); MPV 8.7 fL (7.6-11.3); Neutrophils % 80.7 % (41.7-73.7); Nucleated Red Blood Cells % 0.1 % (0-0); Platelets 185 thou/uL (152-406); RBC Red Blood Cell Count 2.54 M/uL (4.33-5.43); Red Cell Distribution Width 18.9 % (12.1-15.2)
[2024-07-28 06:32] LABS: Anion Gap 6.4 mEq/L (5.0-15.0); Magnesium 2.2 mg/dL (1.6-2.4); Phosphorus 3.3 mg/dL (2.5-4.9); Potassium 4.4 mEq/L (3.5-5.1)
--- NOTE | 2024-07-28 15:39 | P.PN ---
Subjective Date of Service: 07/28/24 Chief Complaint: CHF exacerbation Patient reports intermittent cough productive of whitish sputum. He states that he is looking forward to going home tomorrow. His oxygen requirement fluctuated during the day. He is currently requiring 10 L of oxygen by nasal cannula. Patient remains awake and alert. Physical Examination - Vital Signs Temperature: 98.0 F Blood Pressure: 107/61 Pulse: 95 Respirations: 16 Pulse Ox (%): 96 - Studies Medications List Reviewed: Yes Assessment And Plan - Plan Physical examination General: Alert and oriented x2, NAD, Neck: No elevated JVD Heart: Heart sounds 1 and 2 normal, irregular rhythm, normal rate, no pedal edema Lungs: Bilateral crackles, diminished breath sounds bilaterally, no rhonchi. Abdomen: Soft, nondistended, nontender, normal bowel sounds. Extremities: No tenderness, no deformity Skin: Areas of bruises bilateral upper and lower extremities. Neuro: No focal motor deficit. Normal speech. Psychiatry: Normal mood, no agitation. 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 Hypertension Plan: Acute on chronic diastolic congestive heart failure Severe tricuspid regurgitation History of CAD with PCI Atrial fibrillation status post Watchman procedure Acute on chronic hypoxic respiratory failure-combined CHF/COPD Seen by cardiology in ED Repeat echo still shows severe tricuspid regurgitation with pulmonary hypertension Blood pressures were running soft, patient does not appear grossly overloaded at this time On oral lasix Other home medications continued Wean oxygen as tolerated Pulmonology also consulted COVID-19 viral illness/possible viral pneumonia Chronic opacities on imaging possibly related to viral pneumonia Has possibly been symptomatic for over a week now Continue supportive care, steroids COPD on home O2 Pulmonary consult, prednisone 10 mg twice daily for 2 more days Will hold off on antibiotics for now white blood cell count normal, afebrile Procalcitonin within normal limits Frequent nosebleeds History of GI bleed-AVM Iron deficiency anemia 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 He is requiring more oxygen. Progressive respiratory failure multifactorial secondary to emphysema, lung fibrosis/scarring with superimposed COVID-19 pneumonia. Patient has not responded to treatment. Repeat chest x-ray to assess for pneumonia. Of note, procalcitonin checked earlier was negative. Empiric antibiotics-cefepime and doxycycline. Continue steroids and bronchodilators. Family is considering hospice at home. Social service is assisting with hospice arrangement. 07/28 CT chest result reviewed and noted mild posterior right upper lobe and lower lobe opacities probably pneumonia. No PE. Patient is looking forward to home with hospice tomorrow. Continue antibiotics, bronchodilators and steroid. Diet as tolerated. Wean oxygen as tolerated. Ongoing arrangement for home with hospice.
[2024-07-29 05:16] LABS: Absolute Eosinophils 0.1 K/uL (0-0.5); Absolute Lymphocytes (CBC) 0.2 K/uL (0.7-4.9); Absolute Monocytes 0.5 K/uL (0.1-1.3); Absolute Neutrophil 3.3 K/uL (1.8-8.0); Basophils % 0.6 % (0-1.3); Eosinophils % 2.1 % (0-4.4); Hematocrit 22.5 % (39.6-49.0); Hemoglobin 7.7 g/dL (13.6-17.9); Lymphocytes % 5.2 % (15.3-44.8); MCH 33.2 pg (27.0-35.0); MCHC 34.1 g/dL (32.0-36.0); MCV 97.6 fL (80-100); MPV 8.2 fL (7.6-11.3); Monocytes % 13.1 % (3.3-12.3); Nucleated Red Blood Cells % 0.1 % (0-0); Platelets 161 thou/uL (152-406); RBC Red Blood Cell Count 2.31 M/uL (4.33-5.43); Red Cell Distribution Width 18.9 % (12.1-15.2)
[2024-07-29 05:21] LABS: Anion Gap 7.1 mEq/L (5.0-15.0); Phosphorus 2.6 mg/dL (2.5-4.9); Potassium 4.1 mEq/L (3.5-5.1)
[2024-07-29 08:24] LABS: Band Neutrophils 3 % (0-1); Differential Total Cells Count 100; Eosinophils 1 % (0-3); Lymphocytes 6 % (15-42); Metamyelocytes 1 % (0-0); Monocytes 15 % (0-10); Segmented Neutrophils 73 % (40-80)
[2024-07-29 08:25] LABS: Anisocytosis 1+; Blood Morphology Comment NOTED (NOT SEEN); Platelet Estimate ADEQ; Polychromasia SLIGHT; Rouleau SLIGHT
[2024-07-29 11:08] VITALS: O2SAT 98
[2024-07-29 12:31] VITALS: TEMP 97.9
--- NOTE | 2024-07-29 16:13 | P.DS ---
Admission Date: 07/18/24 Discharge Date: 07/29/24 Disposition: HOSPICE-HOME Reason for Admission: CHF exacerbation Brief History of Present Illness: 88-year-old male with history of chronic diastolic congestive heart failure, severe tricuspid regurgitation, atrial fibrillation status post Watchman procedure, COPD on chronic home O2, hypertension, CAD, history of GI bleeding, iron deficiency anemia, history of DVTs presents to the emergency department chief complaint of hypoxia, dyspnea. He was hospitalized from 07/01 until 07/10 and discharged to a nursing home facility at that time. Patient noted to be hypoxic on oxygen by nasal cannula. EMS on arrival put him on a facemask and brought him to the emergency department. Workup in the emergency department revealed elevated high sensitive troponin of 121.3 BNP of 3857 white blood cell count 5.6 and hemoglobin of 8.8. Of note he does deal with nosebleeds periodically and is very sensitive to blood thinners as well as nasal cannula oxygen. During his last hospitalization he was evaluated by cardiology who states that he is not a candidate for any intervention on his tricuspid valve in regards to severe tricuspid regurgitation. Patient also has CHF and advanced COPD. Chest x-ray showed mildly progressive left basilar opacity which could reflect atelectasis or pneumonia probably with a small effusion. Patient was hospitalized for further management. 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 Repeat echo still showed severe tricuspid regurgitation with pulmonary hypertension Blood pressures were running soft. Patient was on Lasix. Other home medications continued Pulmonology evaluated patient and assisted with management. COVID-19 viral illness/possible viral pneumonia Opacities on imaging possibly related to viral pneumonia Managed with steroids/ COPD on home O2 Pulmonary evaluated patient and patient placed on prednisone. 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 Progressive respiratory failure multifactorial secondary to emphysema, lung fibrosis/scarring with superimposed COVID-19 pneumonia. Patient did not respond much to treatment. Patient started on a trial of cefepime and doxycycline. At this point patient and family opted for hospice. Oxygen weaned down to 6 L. Home hospice has been arranged. Patient is prescribed Augmentin and doxycycline to continue trial of antibiotics. Vital Signs/Physical Exam: Temp Pulse Resp BP Pulse Ox 97.9 F 73 20 101/63 99 07/29/24 12:00 07/29/24 12:00 07/29/24 12:00 07/29/24 12:00 07/29/24 12:00 General: In no apparent distress, Oriented x2 HEENT: Other Neck: JVD not distended Respiratory: Crackles/rales (Bilateral) Cardiovascular: No edema, Other (Tachycardia) Gastrointestinal: Soft and benign, Non-distended Musculoskeletal: No swelling Integumentary: No cyanosis Neurological: Normal strength at 5/5 x4 extr Laboratory Data at Discharge: WBC 4.10 thou/uL (4.3-10.9) L 07/29/24 04:22 Hgb 7.7 g/dL (13.6-17.9) L D 07/29/24 04:22 Hct 22.5 % (39.6-49.0) L 07/29/24 04:22 Plt Count 161 thou/uL (152-406) 07/29/24 04:22 PT 13.8 SECONDS (10-13.0) H 07/18/24 10:45 INR 1.22 07/18/24 10:45 APTT 27.7 SECONDS (27.2-37.4) 07/18/24 10:45 Sodium 134 mEq/L (136-145) L 07/29/24 04:22 Potassium 4.1 mEq/L (3.5-5.1) 07/29/24 04:22 BUN 34 mg/dL (7-18) H 07/29/24 04:22 Creatinine 0.90 mg/dL (0.70-1.30) 07/29/24 04:22 Glucose 94 mg/dL (74-106) 07/29/24 04:22 Phosphorus 2.6 mg/dL (2.5-4.9) 07/29/24 04:22 Magnesium 2.0 mg/dL (1.6-2.4) 07/29/24 04:22 Total Bilirubin 0.9 mg/dL (0.2-1.0) 07/18/24 10:45 AST 30 U/L (15-37) 07/18/24 10:45 ALT 32 U/L (16-61) 07/18/24 10:45 Alkaline Phosphatase 69 U/L (45-117) 07/18/24 10:45 Home Medications: Allopurinol 100 mg PO DAILY 08/26/23 Digoxin [Lanoxin*] 1 tab PO DAILY 08/26/23 Fluticasone/Umeclidin/Vilanter [Trelegy Ellipta 100-62.5-25] 1 puff IN DAILY 08/26/23 Gabapentin [Neurontin] 600 mg PO BID 08/26/23 Tamsulosin [Flomax*] 1 cap PO DAILY 08/26/23 Acetaminophen [Tylenol*] 650 mg PO Q4HP PRN tab 07/10/24 Furosemide [Lasix*] 40 mg PO DAILY tab 07/10/24 Ipratropium Neb [Atrovent*] 0.5 mg NEB TIDRESP amp 07/10/24 Levalbuterol [Xopenex*] 0.63 mg NEB TIDRESP PRN vial 07/10/24 Metoprolol Tartrate [Lopressor*] 25 mg PO BID tab 07/10/24 Spironolactone [Aldactone*] 25 mg PO DAILY tab 07/10/24 Hydrocodone 5/APAP 325 [[place] 5/325*] 1 tab PO TID 07/18/24 predniSONE [Deltasone*] 10 mg PO BID 07/18/24 Albuterol Neb [Proventil 0.083% Neb Soln] 2.5 mg NEB [id number] PRN #120 amp 07/29/24 Amox/Clavulanate [Augmentin 875-125 Tab] 1 each PO BID #14 tab 07/29/24 Benzonatate [Tessalon Perle*] 100 mg PO TID PRN #30 cap 07/29/24 Doxycycline Hyclate 100 mg PO BID #14 cap 07/29/24 New Medications: Albuterol Neb [Proventil 0.083% Neb Soln] 2.5 mg NEB [id number] PRN #120 amp PRN Reason: Shortness Of Breath Amox/Clavulanate [Augmentin 875-125 Tab] 1 each PO BID #14 tab Doxycycline Hyclate 100 mg PO BID #14 cap Benzonatate [Tessalon Perle*] 100 mg PO TID PRN #30 cap PRN Reason: Cough Activity: Fall precautions Followup: Ade Rosales MD [Primary Care Provider] - Time spent managing pt's care (in minutes): 42
[2024-07-29 16:18] VITALS: BP 125/73
== END 2024-07-29 17:30 | disposition hospice, home (50) | DRG 177 ==
LOC: ER 09:57 → 2ND 12:44
PROVIDERS: ADMIT Hospitalist; ATTEND Internal Medicine
PROC: 30233N1 Transfusion of Nonautologous Red Blood Cells into Peripheral Vein, Percutaneous Approach (ICD-10-PCS; principal; 2024-07-24)
PROC: 5A0945A Assistance with Respiratory Ventilation, 24-96 Consecutive Hours, High Flow/Velocity Cannula (ICD-10-PCS; 2024-07-25)
DX: U07.1 COVID-19 (principal); I50.33 Acute on chronic diastolic (congestive) heart failure; J12.82 Pneumonia due to coronavirus disease 2019; J96.21 Acute and chronic respiratory failure with hypoxia; J81.0 Acute pulmonary edema; J44.0 Chronic obstructive pulmonary disease with (acute) lower respiratory infection; L89.152 Pressure ulcer of sacral region, stage 2; I07.1 Rheumatic tricuspid insufficiency; I11.0 Hypertensive heart disease with heart failure; D50.9 Iron deficiency anemia, unspecified; I48.91 Unspecified atrial fibrillation; J44.9 Chronic obstructive pulmonary disease, unspecified; I25.10 Atherosclerotic heart disease of native coronary artery without angina pectoris; Z99.81 Dependence on supplemental oxygen; Z95.818 Presence of other cardiac implants and grafts; Z86.718 Personal history of other venous thrombosis and embolism; Z95.5 Presence of coronary angioplasty implant and graft; Z87.19 Personal history of other diseases of the digestive system; Z51.5 Encounter for palliative care
CPT/HCPCS: 36415; 71045; 71275; 80048; 80053; 80162; 83605; 83735; 83880; 84100; 84145; 84439; 84443; 84484; 85018; 85025; 85610; 85730; 86850; 86900; 86901; 86920; 87040; 87428; 93005; 93306; 94640; 94760; 96365; 97110; 97161; 97530; 99284; 99285; J0692; J1940; J2543; J7050; J7512; J7613; J7614; P9016; Q9967